=== PATIENT | female | born 1945 | race Caucasian/White ===

== ENCOUNTER 2023-08-11 06:43 | Day surgery (SDC) | payer MEDICARE, OTHER, SELFPAY ==
[2023-08-11] VITALS (16 sets, daily range): BP systolic 128–152; BP diastolic 50–65; BMI 21.5
--- NOTE | 2023-08-11 07:00 | W.SUR.PREOP ---
Pre-Operative Surgical Note
-
I have examined this patient prior to the performance of the scheduled procedure.
The patient's condition is unchanged from the time of the current History and
Physical and the patient is able to undergo the scheduled procedure.
[2023-08-11] MEDS: NSS 500 IV (07:10)
[2023-08-11 07:30] LABS: Hematocrit 30.3 % (37.0-47.0); Hemoglobin 9.4 g/dL (12.0-16.0); Mean Corpuscular Hgb 29.3 pg (27.0-31.0); Mean Corpuscular Volume 94.4 fL (81.0-99.0); Red Blood Cell Count 3.21 10^6/uL (4.20-5.40); Red Cell Dist. Width 16.6 % (11.5-14.5); White Blood Cell Count 6.3 10^3/uL (4.8-10.8)
[2023-08-11 07:39] LABS: Blood Urea Nitrogen 29 mg/dl (7-17); Calcium 9.2 mg/dl (8.4-10.2); Carbon Dioxide 31 mmol/L (22-30); Chloride 99 mmol/L (98-107); Glucose 90 mg/dl (70-99); Potassium 4.5 mmol/L (3.5-5.1); Sodium 138 mmol/L (135-145); eGFR 35.89
[2023-08-11 08:07] LABS: INR 0.99; PT 12.9 Sec (11.4-14.6)
[2023-08-11 08:08] LABS: APTT 26.5 Sec (23.4-35.0)
[2023-08-11 08:24] LABS: Mean Platelet Volume 10.1 fL (7.4-10.4); Platelet Count 66 10^3/uL (130-400)
--- NOTE | 2023-08-11 09:41 | W.IMMPOSTOP ---
Surgical Immed Post Op Note
-
Primary Surgeon: Dr. Itz Blunt III, MD
Assisting Surgeon: Dr. Neville Collado MD, PhD (PGY-1)
Pre-op Diagnosis: Peripheral artery disease with non healing wound on right second toe
Post-op Diagnosis: Peripheral artery disease with non healing wound on right second toe
Procedure Performed: Diagnostic angiogram, intravascular lithotripsy of AT artery with balloon angioplasty, tPA injection of distal AT, balloon angioplasty of dorsalis pedis
Anesthesia Type: MAC
Specimen / Cultures: None
Estimated Blood Loss: Minimal
Complications: None
Operative Findings: The patient was brought to the OR and placed in the supine position. After anesthesia induction, the groins were prepped and draped in usual sterile fashion. C arm was used to identify the inferior and superior borders of the
femoral head. Ultrasound guidance was used to identify the left CONTAINER CRANE OPERATOR. Local anesthetic was injected along the subcutaneous tissue. Micropuncture needle was used to access the left CONTAINER CRANE OPERATOR. This was upsized to a 5-kyrgyz sheath over a Celergoson wire. A
piedra's hook catheter and guidewire was advanced into the distal abdominal aorta and a diagnostic arteriogram was performed showing patent aorto-iliac system and patient ilio-femoral system bilaterally. The right SFA had diffusely calcified
disease but was of good caliber. The proximal AT had sluggish flow and was of reduced caliber, while the TP trunk and PT and peroneal arteries were of good caliber and had good distal run off. We advanced a quick cross catheter into the
contralateral right SFA then a 0.014 wire beyond that. Intravascular lithotripsy was performed starting from the distal AT/dorsalis pedis proximally to the proximal AT take off. After this, we injected tPA into the distal AT/dorsalis pedis to
facilitate opening up the distal occlusive microvascular disease. We then performed a balloon angioplasty of the dorsalis pedis (starting with the second toe pedal branch) and worked proximally through the distal AT. Completion arteriogram showed
improved AT patency and run off into the dorsalis pedis. Wires were removed and the sheath was removed under manual occlusive pressure. The patient had a palpable right DP and dopplerable right PT and left DP/PT. The patient was transported to the
PACU in stable condition.
[2023-08-11] MEDS: DILAUDID 0.25 MG IV (10:56)
[2023-08-11] MEDS: NSS 1000 IV (11:24)
[2023-08-11] MEDS: TYLENOL 650 MG PO (11:33)
--- NOTE | 2023-08-11 11:46 | PTCARENOTE ---
Pt reported sudden pain inPACU just before transfer and was medicated with Dilaudid. On arrival her right groin dressing was saturated. She had oozed, clotted and had a large grape sized hematoma we compressed for 20 minutes. Dressing was changed
and site remains soft. No eechymosis visible at this time. She was turned for retroperitoneal check. No blood pooling noted. VS stable throughout. HR remained in the 50's , SBP 120's -140. Addl tylenol given for comfort. Groin care/safety reviewed
again with pt.
--- NOTE | 2023-08-11 17:24 | OR.RPT ---
Operative Report
Operative Report
Date of Operation: 08/11/2023
Pre Op Diagnosis: Critical limb threatening ischemia, right lower extremity with nonhealing toe wound
Post Op Diagnosis: Critical limb threatening ischemia, right lower extremity with nonhealing toe wound
Procedure:
1.) Intravascular lithotripsy to right anterior tibial artery calcified stenosis (2.5 mm x 80 mm E8 shockwave balloon)
2.) Balloon angioplasty of distal anterior tibial artery (2 mm angioplasty balloon)
3.) Balloon angioplasty of dorsalis pedis artery (2 mm angioplasty balloon)
4.) Diagnostic aortobiiliac arteriogram
5.) Diagnostic right lower extremity arteriogram
6.) Ultrasound-guided percutaneous access to the left common femoral artery
Surgeon: Itz Blunt III, MD
General Road Supervisor: Neville Collado MD PhD, PGY1
Anesthesia: Sedation with local
Fluoroscopy:
32.4 min
62 mGy
14.09 Gy.cm2
Complications: None
Estimated Blood Loss: Minimal
History and Indications for Procedure: 78-year-old female with critical limb threatening ischemia of her right lower extremity manifested by nonhealing necrotic toe wounds.
Procedure in Detail: Diana Crandall was correctly identified and placed supine on the operating table. After adequate induction of anesthesia the bilateral groins were prepped and draped in the usual sterile fashion. A timeout was performed with the
nursing and anesthesia staff confirming the patient's identity as well as the nature and laterality of the procedure.
The left common femoral artery was identified under ultrasound guidance. The artery was patent. The superior and inferior aspects of the femoral head were identified with radiographic guidance and marked at the skin level. The proposed puncture site
was infiltrated with local anesthesia. We saved a copy of the ultrasound image to the medical record. Under ultrasound guidance we accessed the left common femoral artery with a micropuncture needle and upsized to a 5 Fr sheath over a Bentson wire.
The wire and a ShepherBringIt hook flush catheter were advanced into the distal abdominal aorta and a diagnostic aorto-biiliac arteriogram was performed:
AORTO-ILIAC ARTERIOGRAM:
Aorta: Peripherally calcified diffusely. Small infrarenal abdominal identified aortic aneurysm.
Right common iliac artery: Patent with no significant stenosis identified
Right external iliac artery: Patent with no significant stenosis identified
Left common iliac artery: Patent with no significant stenosis identified
Left external iliac artery: Patent with no significant stenosis identified
Under roadmap guidance using a Glidewire and the FamilyLinkerBringIt hook catheter we selected the right common iliac artery and then the external iliac artery. A catheter was tracked up and over the aortic bifurcation and placed in the distal external iliac
artery. A diagnostic right lower extremity arteriogram was then performed which demonstrated the following:
RIGHT LOWER EXTREMITY:
Common femoral artery: Patent with no significant stenosis identified
Profunda femoral artery: Patent with no significant stenosis identified
Superficial femoral artery: Diffusely calcified. Patent with no significant stenosis identified
Popliteal artery: Diffusely calcified. Mild stenosis involving the above-knee popliteal artery
Anterior tibial artery: Patent proximally with sluggish flow. Occluded distally. Calcified.
Tibioperoneal trunk: Patent
Peroneal artery: Patent to the ankle
Posterior tibial artery: Patent with no significant stenosis identified
ENDOVASCULAR INTERVENTION: Systemic heparin was administered. Selected the superficial femoral artery with the Glidewire and piedra's the catheter. Exchanged out for a 5 Fr 90 cm sheath over a Storq wire. Selected the anterior tibial artery
under roadmap guidance with Quickcross catheter and glidewire. The anterior tibial artery occlusion was crossed with a 0.014 Quickcross and 0.014 TRUCK MECHANIC wire. The wire and catheter were advanced into the dorsalis pedis artery and subtraction angio
confirmed proper position in the true lumen. Due to the heavily calcified nature of the arterial disease and in an effort to modify the calcium to achieve maximum luminal gain with endovascular intervention I elected to proceed with intravascular
lithotripsy. A 2.5 mm x 80 mm E8 shockwave balloon was placed across the distal anterior tibial artery disease under roadmap guidance. Alternating rounds of lithotripsy pulse delivery at sub-nominal pressure and angioplasty at nominal pressure was
performed across the entire length of anterior tibial artery from the occluded segment distally back to its origin. In between rounds of pulse delivery and angioplasty the balloon was deflated and repositioned under roadmap guidance. All 400 pulses
were delivered.
Subsequent arteriogram demonstrated an excellent technical result within the treated segments of the anterior tibial artery. These were patent with no residual stenosis identified. However there was still sluggish flow through the anterior tibial
artery likely related to an outflow problem. There appeared to be significant occlusive disease in the dorsalis pedis artery. I then tracked the 0.014 Quickcross catheter distally into the proximal foot. 2 mg of tPA were administered through the
dorsalis pedis artery into the foot. I then replaced the wire with a hydrophilic tip 0.014 wire and advanced it into a digital branch arising from the dorsalis pedis artery. Under roadmap guidance I positioned a 2 mm angioplasty balloon into the
dorsalis pedis artery. Balloon angioplasty was performed on the entire dorsalis pedis artery and distal anterior tibial artery at the ankle using 2-minute inflations for each segment treated. The balloon was then deflated and removed over the wire.
Subsequent arteriogram demonstrated a significantly improved result. There was flow through a widely patent anterior tibial artery which continued across the ankle into the foot through a now patent dorsalis pedis artery and out through digital
branches supplying the toes. This was significantly improved compared to pretreatment.
Satisfied with this result we concluded the procedure. The sheath tip was pulled back into the left external iliac artery. Protamine was administered. The sheath was pulled and direct manual pressure was held over the puncture site. Hemostasis
was achieved. A sterile dressing was applied.
The patient tolerated the procedure well and was taken to the recovery area in stable condition. At the conclusion of the case the patient had an easily palpable dorsalis pedis pulse in the foot.
Attestation: I was present and responsible for the entire procedure.
Signed:
Itz Blunt III, MD
[facility]
[phone] (cell)
== END 2023-08-11 17:00 | disposition home or self-care (01) ==
LOC: CATH 06:43
PROVIDERS: ATTENDING PHYSICIAN Surgery Vascular Surgery; FAMILY PHYSICIAN Internal Medicine; OTHER PHYSICIAN Internal Medicine
DX: I70.235 Atherosclerosis of native arteries of right leg with ulceration of other part of foot (principal); L97.519 Non-pressure chronic ulcer of other part of right foot with unspecified severity; M32.9 Systemic lupus erythematosus, unspecified; Z79.01 Long term (current) use of anticoagulants; Z79.899 Other long term (current) drug therapy; Z79.52 Long term (current) use of systemic steroids; I50.9 Heart failure, unspecified; I11.0 Hypertensive heart disease with heart failure
CPT/HCPCS: C9772; C1725; 75625; 75716; 76937; 80048; 85027; 85610; 85730; 93005; 93926; C1769; C1887; C1894; J2997; Q9967

== ENCOUNTER → 2023-09-14 10:46 | Outpatient (REF) | payer MEDICARE, OTHER, SELFPAY | LOC: RAD 10:46 | PROVIDERS: ATTENDING PHYSICIAN Surgery Vascular Surgery | DX: I73.9 Peripheral vascular disease, unspecified (principal) | CPT/HCPCS: 93922; 93925 ==

== ENCOUNTER → 2023-12-18 09:29 | Outpatient (REF) | payer MEDICARE, OTHER, SELFPAY | LOC: RAD 09:29 | PROVIDERS: ATTENDING PHYSICIAN Registered Nurse; FAMILY PHYSICIAN Internal Medicine | DX: I73.9 Peripheral vascular disease, unspecified (principal); I71.43 Infrarenal abdominal aortic aneurysm, without rupture | CPT/HCPCS: 76770; 93922; 93925 ==

== ENCOUNTER 2024-01-05 06:49 | Day surgery (SDC) | payer MEDICARE, OTHER, SELFPAY ==
--- NOTE | 2024-01-02 16:21 | PTCARENOTE ---
Use EKG from 08/11/23 per office, which shows nonspecific Twave abnormality. This EKG was used for prior surgery 08/11/23.
[2024-01-05] VITALS (31 sets, daily range): BP systolic 94–151; BP diastolic 40–110; BMI 21.1
[2024-01-05] MEDS: NSS 500 IV (07:39)
[2024-01-05 07:49] LABS: INR 1.01; PT 13.6 Sec (11.4-14.6)
[2024-01-05 07:50] LABS: APTT 27.6 Sec (23.4-35.0)
[2024-01-05 07:53] LABS: Blood Urea Nitrogen 45 mg/dl (7-17); Calcium 9.2 mg/dl (8.4-10.2); Carbon Dioxide 32 mmol/L (22-30); Chloride 97 mmol/L (98-107); Estimated Creatinine Clearance 26 ml/min; Glucose 86 mg/dl (70-99); Potassium 4.5 mmol/L (3.5-5.1); Sodium 138 mmol/L (135-145); eGFR 35.89
[2024-01-05 08:29] LABS: Hematocrit 33.7 % (37.0-47.0); Mean Corp Hgb Conc. 32.6 g/dL (33.0-37.0); Mean Corpuscular Hgb 30.2 pg (27.0-31.0); Mean Corpuscular Volume 92.6 fL (81.0-99.0); Platelet Count 86 10^3/uL (130-400); Red Blood Cell Count 3.64 10^6/uL (4.20-5.40); White Blood Cell Count 5.4 10^3/uL (4.8-10.8)
[2024-01-05] MEDS: NSS IV (12:13)
[2024-01-05] MEDS: NSS 1000 IV (12:15)
--- NOTE | 2024-01-05 12:30 | W.IMMPOSTOP ---
Surgical Immed Post Op Note
-
Primary Surgeon: Dr. Itz Blunt III, MD
Assisting Surgeon: Neville Collado MD, PhD (PGY-2)
Pre-op Diagnosis: Right lower extremity peripheral artery disease with non healing wounds on right toes
Post-op Diagnosis: Right lower extremity peripheral arterial disease with non healing wounds on right toes
Procedure Performed: Diagnostic arteriogram, intravascular lithotripsy (Javelin), intravascular lithotripsy with balloon angioplasty (2.5mm), balloon angioplasty (2mm), catheter-based nitroglycerin injection
Anesthesia Type: MAC
Specimen / Cultures: None
Estimated Blood Loss: Minimal
Complications: None
Operative Findings: The patient was brought to the OR and placed in the supine position. The patient was prepped and draped in usual sterile fashion. Fluoroscopy was used to identify the superior and inferior border of the femoral head, this was
marked at the skin level. Ultrasound guidance was used to identify the L AOC DIRECTOR COMBAT OPERATIONS OFFICER. Local anesthetic agent was injected at the access site. The left AOC DIRECTOR COMBAT OPERATIONS OFFICER was accessed with a micropuncture kit, which was upsized to a 5Fr sheath over a Bentson wire. A
piedra's hook catheter was then advanced into the abdominal aorta over a guidewire. Diagnostic arteriogram showed a patent distal abdominal aorta and bilateral ilio femoral system. A glidewire was used to select the contralateral right AOC DIRECTOR COMBAT OPERATIONS OFFICER and the
catheter was advanced over wire. Diagnostic arteriogram showed a patent SFA and profunda but with areas of calcification noted along the SFA and popliteal artery segments. Distally, the anterior tibial artery was occluded proximally, the peroneal
was patent but diffusely diseased with limited flow distally, and the posterior tibial was the only single run off vessel to the foot, but had diffuse disease throughout with a proximal and distal area of high grade stenosis. A glidewire was
advanced into the distal posterior tibial artery and a javelin intravascular lithotripsy catheter was advanced over wire to the proximal posterior tibial artery. This area was treated as the javelin device was advance to about the mid PEST CONTROL SUPERVISOR. At this
point, we were unable to advance the catheter further. A 2.5mm balloon angioplasty and intravascular lithotripsy was performed at the proximal half of the PEST CONTROL SUPERVISOR. Then a 2mm balloon angioplasty was performed for the distal half of the PEST CONTROL SUPERVISOR. Finally a
catheter directed nitroglycerin injection was performed, delivering the nitro to the distal posterior tibial artery. At the conclusion of the case, completion arteriogram showed improved caliber of the posterior tibial artery along its entire
length, with continued areas of stenosis distally. Wires and sheaths were removed and a selective arteriogram of the left iliofemoral system showed no evidence of pseudoaneurysm or extravasation at the access site. The patient had strong doppler PT
and DP signals in both feet. She was transported to the PACU in stable condition.
--- NOTE | 2024-01-08 09:51 | OR.RPT ---
Operative Report
Operative Report
Date of Operation: 01/05/2024
Pre Op Diagnosis: Chronic limb threatening ischemia, right lower extremity
Post Op Diagnosis: Chronic limb threatening ischemia, right lower extremity
Procedure:
1.) Intravascular lithotripsy to right posterior tibial artery using Shockwave Javelin catheter and 2.5 mm x 80 mm E8 balloon
2.) Balloon angioplasty of right posterior tibial artery and plantar branch (2 mm x 150 mm angioplasty balloon)
3.) Diagnostic aortobiiliac arteriogram
4.) Diagnostic right lower extremity arteriogram
5.) Ultrasound-guided percutaneous access to the left common femoral artery
Surgeon: Itz Blunt III, MD
Can Filling And Closing Machine Tender: Neville Collado MD PhD, PGY2
Anesthesia: Sedation with local
Fluoroscopy:
38.9 min
60 mGy
17.7 Gy.cm2
Complications: None
Estimated Blood Loss: Less than 20 cc
History and Indications for Procedure: 78-year-old female with chronic limb threatening ischemia of the right lower extremity
Procedure in Detail: Diana Crandall was correctly identified and placed supine on the operating table. After adequate induction of anesthesia the bilateral groins were prepped and draped in the usual sterile fashion. A timeout was performed with the
nursing and anesthesia staff confirming the patient's identity as well as the nature and laterality of the procedure.
The left common femoral artery was identified under ultrasound guidance. The artery was patent. The superior and inferior aspects of the femoral head were identified with radiographic guidance and marked at the skin level. The proposed puncture site
was infiltrated with local anesthesia. Under ultrasound guidance we accessed the left common femoral artery with a micropuncture needle and upsized to a 5 Fr sheath over a Bentson wire. The wire and a ShepherOnehub hook flush catheter were advanced into
the distal abdominal aorta and a diagnostic aorto-biiliac arteriogram was performed:
AORTO-ILIAC ARTERIOGRAM:
Aorta: Peripherally calcified. Patent. Area of ectasia identified at the level of the ELEONORA. No significant stenosis identified
Right common iliac artery: Peripherally calcified but patent with no significant stenosis identified.
Right external iliac artery: Patent with no significant stenosis identified
Left common iliac artery: Peripherally calcified. Patent with no significant stenosis identified
Left external iliac artery: Patent with no significant stenosis identified
Under roadmap guidance using a Glidewire and the Shepherds hook catheter we selected the right common iliac artery and then the external iliac artery. A catheter was tracked up and over the aortic bifurcation and placed in the distal external iliac
artery. A diagnostic right lower extremity arteriogram was then performed which demonstrated the following:
RIGHT LOWER EXTREMITY:
Common femoral artery: Patent with no stenosis identified
Profunda femoral artery: High femoral bifurcation with high takeoff of the profunda femoral artery. Profunda is patent with no stenosis identified.
Superficial femoral artery: Patent with no stenosis identified
Popliteal artery: Patent with no stenosis identified
Anterior tibial artery: Patent proximally but occluded thereafter with no meaningful distal reconstitution
Tibioperoneal trunk: Patent with no stenosis identified
Peroneal artery: Patent to the ankle with no stenosis identified.
Posterior tibial artery: Patent. Proximal high-grade stenosis identified at the origin. Diffusely small artery. Significant stenosis noted in the mid to distal artery. Severe plantar vessel disease identified
*Severe small vessel disease is identified in the foot
ENDOVASCULAR INTERVENTION: Systemic heparin was administered. The superficial femoral artery was selected with the Glidewire and piedra's hook catheter. Exchanged out for a 5 Fr 70 cm sheath over a Storq wire. Selected the posterior tibial
artery under roadmap guidance with Quickcross catheter and glidewire. The diffuse PT stenosis was crossed with a Quickcross and [place] [address] 0.014 wire. Due to the heavily calcified nature of the arterial disease and in an effort to modify the calcium
to achieve maximum luminal gain with endovascular intervention I elected to proceed with intravascular lithotripsy. I attempted to advance a 2.5 mm x 80 mm E8 shockwave balloon across the posterior tibial artery stenosis but was only able to
advance the balloon to the mid calf. Therefore I remove the balloon over the wire and instead proceeded with the shockwave Javelin catheter. The javelin catheter was advanced under roadmap guidance over the 0.014 wire. Starting at the mid calf
the catheter was advanced slowly over the 0.014 wire to the ankle while delivering lithotripsy pulses across this entire segment. All 120 pulses from the Javelin catheter were delivered across the posterior tibial artery. Subsequent arteriogram
demonstrated an improved but suboptimal result and residual stenosis was identified. A 2.5 mm x 80 mm E8 shockwave balloon was then successfully advanced posterior tibial artery across the stenosis under roadmap guidance. Alternating rounds of
lithotripsy pulse delivery at sub-nominal pressure and angioplasty at nominal pressure was performed across the stenosis. In between rounds of pulse delivery and angioplasty the balloon was deflated and repositioned under roadmap guidance. All 400
pulses were delivered across the posterior tibial artery stenosis. Subsequent arteriogram demonstrated an improved result. Residual stenosis was identified in the distal posterior tibial artery and plantar branch in the foot. I therefore advanced
a 2 mm x 150 mm angioplasty balloon under roadmap guiddance across the distal posterior tibial artery stenosis and placed the distal tip within the proximal plantar branch in the foot. The balloon was inflated to nominal pressure, held in place for
a prolonged 4-minute inflation and then slowly deflated and removed over the wire. Subsequent arteriogram demonstrated a significantly improved result. The posterior tibial artery was widely patent with brisk flow. Flow into the foot was
significantly improved. Flow to the forefoot was significantly improved compared to pretreatment. Some focal reconstitution of the distal anterior tibial artery/proximal dorsalis pedis artery was now identified from distal posterior tibial artery
crossing collaterals however the DP occluded distally and did not continue to the forefoot. Once again identified was significant small vessel disease in the foot.
Satisfied with this result we concluded the procedure. The sheath tip was pulled back into the left external iliac artery. Protamine was administered. The sheath was secured in place with the plan to pull it in the recovery room.
The patient tolerated the procedure well and was taken to the recovery area in stable condition.
Attestation: I was present and responsible for the entire procedure.
Signed:
Itz Blunt III, MD
[facility]
[phone] (qsho)
== END 2024-01-05 16:20 | disposition home or self-care (01) ==
LOC: CATH 06:49
PROVIDERS: ATTENDING PHYSICIAN Surgery Vascular Surgery; FAMILY PHYSICIAN Internal Medicine; OTHER PHYSICIAN Internal Medicine; OTHER PHYSICIAN Student in an Organized Health Care Education/Training Program
DX: I70.235 Atherosclerosis of native arteries of right leg with ulceration of other part of foot (principal); L97.519 Non-pressure chronic ulcer of other part of right foot with unspecified severity; I50.9 Heart failure, unspecified; I11.0 Hypertensive heart disease with heart failure; Z87.891 Personal history of nicotine dependence; Z82.49 Family history of ischemic heart disease and other diseases of the circulatory system; Z79.01 Long term (current) use of anticoagulants; Z79.82 Long term (current) use of aspirin
CPT/HCPCS: C9772; C1894; C1725; 75625; 75716; 80048; 85027; 85610; 85730; C1769; Q9967

== ENCOUNTER → 2024-02-08 09:03 | Outpatient (REF) | payer MEDICARE, OTHER, SELFPAY | LOC: RAD 09:03 | PROVIDERS: ATTENDING PHYSICIAN Surgery Vascular Surgery | DX: I73.9 Peripheral vascular disease, unspecified (principal); I87.2 Venous insufficiency (chronic) (peripheral) | CPT/HCPCS: 93922; 93925; 93971 ==

== ENCOUNTER 2024-05-27 13:51 | Day surgery (SDC) | payer MEDICARE, OTHER, SELFPAY ==
[2024-05-21 13:59] VITALS: BMI 23.2
[2024-05-27 14:30] VITALS: BP 124/88
[2024-05-27 14:35] VITALS: BP 136/83
[2024-05-27 14:38] VITALS: BMI 24.6
[2024-05-27 14:40] VITALS: BP 131/86
[2024-05-27 15:07] LABS: Blood Urea Nitrogen 58 mg/dl (7-17); Carbon Dioxide 27 mmol/L (22-30); Chloride 107 mmol/L (98-107); Estimated Creatinine Clearance 32 ml/min; Glucose 71 mg/dl (70-99); Potassium 4.7 mmol/L (3.5-5.1); Sodium 144 mmol/L (135-145); eGFR 46.62
[2024-05-27 15:09] LABS: INR 1.01; PT 13.6 Sec (11.4-14.6)
[2024-05-27 15:10] LABS: APTT 27.1 Sec (23.4-35.0)
[2024-05-27 15:15] LABS: Hematocrit 27.6 % (37.0-47.0); Hemoglobin 8.7 g/dL (12.0-16.0); Mean Corp Hgb Conc. 31.2 g/dL (33.0-37.0); Mean Corpuscular Hgb 28.7 pg (27.0-31.0); Mean Corpuscular Volume 92.1 fL (81.0-99.0); Red Blood Cell Count 3.03 10^6/uL (4.20-5.40); Red Cell Dist. Width 17.2 % (11.5-14.5); White Blood Cell Count 8.3 10^3/uL (4.8-10.8)
--- NOTE | 2024-05-27 15:31 | W.PN.UPDATE ---
Update Note
Progress Note Update
Had lengthy discussion with patient, her sister, her NH and bedside RN's. Pt is from a NH who states they do not take patients back after 4pm on any day. Pt states she is allowed back anytime so she planned on getting discharged around midnight and
having her sister take her back. We just found out from the coordinator that if pt comes back after midnight she will incur a cost (unsure of dollar amount). Pt does not want to incur any cost for staying at the hospital. Discussed with surgeon and
offered Saturday 06/03 for reschedule. Pt is very pleased with that date/time. Sister aware and agreeable as well. Pt cancelled for today. Will leave with sister shortly.
[2024-05-27 15:37] LABS: Platelet Count 37 10^3/uL (130-400)
--- NOTE | 2024-05-27 16:01 | PTCARENOTE ---
Received patient via wheelchair around 1405 into supervisor dental laboratory recovery. Patient assisted from wheelchair to bed. Patient tearful and states, 'ever since i was in the hospital a couple weeks ago, I cant even walk!' Therapeutic communications provided.
Patient currently resides in [facility] rehab. Patient states that she is able to go back to the rehab at anytime this evening. She states 'I was just informed if I stay the night here, insurance will not cover.' Patient states she will be going
back to the facility later this evening, no matter what time she is discharged. Patient assisted into hospital gown. Vital signs obtained. Patient noted to be in afib with BBBC, heart rate 110's. eKG obtained as ordered. Patient noted to have +3
BLE pedal edema. Doppler bilateral pedal pulses. Patient states her weight this am was 139 pounds. Last stated weight on transfer sheet was 134. IV site obtained by VAT and ordered bloodwork obtained and sent to lab. DALTON Calvo notified of
weight gain, lower extremity edema, ekg results and cost of overnight hospital stay. DIVORCE LAWYER at bedside to see patient. Procedure cancelled and rescheduled.
[facility] facility called (Odette, Nursing quality assurance supervisor final) and made aware of above by this RN. Requested to give report to RN-per nursing quality assurance supervisor final she is able to obtain report. Report given to Odette, Nursing quality assurance supervisor final. Landscape Crew Leader aware of patient
status and the need to take her scheduled medications when she arrives back to the facility. IV site removed. Patient assisted in getting dressing. Patient discharged back to facility with sister via wheelchair.
== END 2024-05-27 16:20 | disposition other institution (70) ==
LOC: CATH 13:51
PROVIDERS: ATTENDING PHYSICIAN Surgery Vascular Surgery
DX: I73.9 Peripheral vascular disease, unspecified (principal); I48.91 Unspecified atrial fibrillation; Z53.29 Procedure and treatment not carried out because of patient's decision for other reasons
CPT/HCPCS: 80048; 85027; 85610; 85730; 93005

== ENCOUNTER 2024-06-11 19:44 | Inpatient (IN) | payer MEDICARE, OTHER, SELFPAY ==
[2024-06-11 19:49] VITALS: BMI 20.8
[2024-06-11 20:10] VITALS: BP 131/64
[2024-06-11 20:38] VITALS: BMI 20.8
--- NOTE | 2024-06-11 21:35 | HPS.HSE ---
Family Physician
-
Family Physician: Kamla Irby
Chief Complaint
-
vascular procedure
History of Present Illness
79-year-old female past medical history of chronic combined systolic/diastolic CHF, COPD, CKD baseline creatinine 1.6-1.9, CAD status post CABG, aortic stenosis status post TAVR, atrial fibrillation on Eliquis, SLE with chronic thrombocytopenia,
ITP, hypothyroidism, chronic anemia, hypertension, hyperlipidemia, osteomyelitis of right toe presenting as transfer from [facility] for inpatient arteriogram with Dr. Blunt.
She originally presented to [facility] on 05/28 due to worsening shortness of breath with dyspnea on exertion. She was found to be in acute CHF exacerbation. She was diuresed with IV Lasix which was switched to IV Bumex drip and ultimately diuresed
with decrease of 22 pounds to 118 pounds. Patient initially required oxygen and was successfully weaned to room air. Unfortunately diuresis was complicated by BRYON. Diuretics were held on 06/07 due to peak creatinine of 2.7. Nephrology was
consulted. Following diuretic break creatinine improved to 2. Patient was resumed on Bumex 4 mg daily on 06/10.
On 06/08 she developed new oxygen requirement and worsening cough and generalized malaise. Repeat chest x-ray showed possible right lower lobe pneumonia. She has a history of Pseudomonas on prior sputum culture. She was started on IV cefepime on
06/08 with resolution of hypoxia, improved cough and clinical improvement overall.
Podiatry was consulted on admission due to his right second necrotic toe with known osteomyelitis as per prior imaging for the past year. Patient follows with Dr. Blunt and has had several procedures previously with him. She had a planned
arteriogram 06/14 due to increase tissue viability. Thereafter patient was planned to undergo either right second toe amputation versus right TMA depending on arteriogram success. During patient's hospitalization she was found to have acute on
chronic thrombocytopenia with platelets of less than 50 secondary to acute illness. Podiatry and vascular surgery agreed for inpatient arteriogram so patient can be closely monitored.
Patient denies any shortness of breath currently but feels short of breath occasionally. She has some residual swelling in her feet. Denies any chest pain. Denies fevers or chills. Denies any pain in her right second necrotic toe. Denies any
discharge.
She denies smoking or alcohol use.
Medical History
Past Medical History
Past Medical History: Reports Other (chronic combined systolic/diastolic CHF, COPD, CKD baseline creatinine 1.6-1.9, CAD status post CABG, aortic stenosis status post TAVR, atrial fibrillation on Eliquis, SLE with chronic thrombocytopenia, ITP,
hypothyroidism, chronic anemia, hypertension, hyperlipidemia, osteomyelitis of right toe)
Past Surgical History: Reports None
Social History
Tobacco: Non-smoker
Alcohol: None
Drug: None
Family History
Family History: Not pertinent
Allergies / Home Medications
Allergies reflects when Allergies were last updated in [facility].
Home Medications with original date entered in [facility]
Allergy/Medication List:
Allergies
Allergy/AdvReac Type Severity Reaction Status Date / Time
dextromethorphan Allergy Unknown Verified 06/11/24 13:08
ibuprofen Allergy Unknown Verified 06/11/24 13:08
[From DayQuil Sinus
Pressure/Pain]
oxaprozin [From Daypro] Allergy Rash Verified 06/11/24 13:08
pseudoephedrine Allergy Unknown Verified 06/11/24 13:08
[From DayQuil Sinus
Pressure/Pain]
Home Medications
albuterol sulfate 2.5 mg/3 mL (0.083 %) solution for nebulization 2.5 mg inhalation Q6H PRN sob/wheezing 08/07/23
hydroxychloroquine 200 mg tablet 200 mg PO BID Autoimmune Disorder 08/07/23
levothyroxine 125 mcg tablet 62.5 mcg PO DAILY HYPOTHYROID 08/07/23
metoprolol tartrate 50 mg tablet 50 mg PO Q12H HTN 08/07/23
prednisone 5 mg tablet 5 mg PO DAILY INFLAMMATION 08/07/23
torsemide 20 mg tablet 20 mg PO DAILY Heart Failure 08/07/23
Betadine 1 unit topical Q48H RIGHT SECOND TOE 05/23/24
budesonide-formoterol HFA 160 mcg-4.5 mcg/actuation aerosol inhaler (Breyna) 2 puff inhalation BID wheeze 05/23/24
cyclosporine 0.05 % eye drops in a dropperette (Restasis) 1 drp ophthalmic (eye) HS DRY EYES 05/23/24
darbepoetin cee in polysorbat 25 mcg/0.42 mL in polysorbate injection syringe (Aranesp) 25 mcg SC Q21D Lupus 05/23/24
diltiazem HCl 240 mg capsule,24 hr,extended release 240 mg PO DAILY HTN 05/23/24
docosanol 10 % topical cream (Abreva) 1 applic topical Q8H PRN cold sore 05/23/24
famotidine 20 mg tablet 20 mg PO DAILY GERD 05/23/24
levalbuterol HCl 1.25 mg/3 mL solution for nebulization 1.25 mg inhalation TID COPD 05/23/24
mineral oil-isopropyl myristat lotion 1 applic topical HS 05/23/24
multivitamin 1 tab PO DAILY Supplement 05/23/24
pantoprazole 40 mg tablet,delayed release 40 mg PO DAILY GERD 05/23/24
torsemide 10 mg tablet 10 mg PO DAILY PRN EDEMA 05/23/24
albuterol sulfate 90 mcg/actuation aerosol inhaler (Ventolin HFA) 1 inh inhalation Q6HPRN PRN SOB/WHEEZE 06/11/24
apixaban 2.5 mg tablet (Eliquis) 2.5 mg PO BID CAD 06/11/24
sodium chloride 3 % for nebulization 4 ml inhalation BID COPD 06/11/24
Review of Systems
-
History Source: Patient
A 12 point ROS was completed and negative except as noted: Yes
Constitutional: Reports No Symptoms
EENT: Reports No Symptoms
Respiratory: Reports No Symptoms
Cardiac: Reports No Symptoms
Abdomen/GI: Reports No Symptoms
: Reports No Symptoms
Musculoskeletal: Reports No Symptoms
Skin: Reports No Symptoms
Neurological: Reports No Symptoms
Endocrine: Reports No Symptoms
Hematologic/Lymphatic: Reports No Symptoms
Psych: Reports No Symptoms
Physical Exam
Vital Signs
Vital Signs
Pulse Pulse Ox
67 83
06/11/24 20:45 06/11/24 20:08
Physical Exam
General: Well Developed, Well Nourished and No Apparent Distress
HEENT: NormoCephalic, Moist mucous membranes and Atraumatic
Respiratory: Clear
Cardiac: S1/S2 and Regular Rhythm; No Murmur or Rub
GI: Soft, Non Tender, Non Distended and Normal Bowel Sounds; No Organomegaly
Rectal: Deferred by Provider
Musculoskeletal: No Clubbing, No Cyanosis and No Edema
Skin: No Rash
Neuro: Nonfocal/grossly intact
Data Reviewed
-
Lab Data: Labs Reviewed by me
Old Records: Reviewed
Impression/Plan
-
IMPRESSION:
PLAN:
# Acute on chronic combined systolic/diastolic CHF
- Echocardiogram showed EF of 40 to 45%, mildly reduced systolic function, global hypokinesis, TAVR bioprosthetic valve, mild to moderate regurgitation mitral valve, mild to moderate regurgitation pulmonic valve,
- Cardiac BNP initially 4700
- Currently on Bumex 4 mg p.o. restarted on 06/10 after developing BRYON
- Weight has decreased from 140 pounds on 05/28 to 118 pounds
#Paroxysmal atrial flutter
- Started on Cardizem to 40 mg daily
- Continue metoprolol
- Eliquis on hold due to borderline thrombocytopenia
#CAD status post CABG
- Aspirin on hold due to borderline thrombocytopenia
#History of TAVR
# Essential Hypertension
- Continue metoprolol
# New necrotic right second toe
# Osteomyelitis of right second toe
- Arteriogram scheduled on 06/14 as outpatient originally with Dr. Blunt to be done inpatient
- Podiatry was not concerned about infected toe
- Plan for right second toe amputation versus right TMA afterwards with Dr. Martinez
Acquired hypothyroidism
- Continue levothyroxine
COPD
- Continue budesonide, formoterol, Mucinex, Xopenex
History of SLE
- Continue Plaquenil, prednisone,
Acute on chronic thrombocytopenia secondary to current pneumonia on ITP/SLE
- Platelets have been stable around 45, baseline platelet count around 60-80 since March 2024, prior to this baseline was 100-130
- Consider platelet transfusion if vascular surgery
Chronic anemia
-Remote history of aplastic anemia/autoimmune hemolytic anemia treated with steroids/Rituxan
-Recently seen by outpatient hematology Dr. Moore on 04/24 who started Aranesp transfusion
- Received first dose of Aranesp while inpatient on 06/07
Community-acquired pneumonia
- Repeat chest x-ray on 06/08 showed moderate bilateral scarring persistent opacity at the medial right base which could be atelectasis or pneumonia
- Started on cefepime/ 419 due to prior history of Pseudomonas pneumonia
BRYON on chronic kidney disease
- Baseline creatinine of 1.6-1.9
- Creatinine peaked 2.7 while on IV diuretics now improved to 2
- Back on Bumex 4 mg daily
- Carefully monitor as patient will receive dye for arteriogram
Full code
DVT prophylaxis�SCDs
Regular diet
[2024-06-11 23:15] VITALS: BP 137/61
[2024-06-11] MEDS: LOPRESSOR 50 MG PO (23:37)
[2024-06-11] MEDS: MAXIPIME 1000 MG IV (23:38)
[2024-06-11] MEDS: STERILE WATER FOR INJECTION 10 ML IV (23:38)
[2024-06-11] MEDS: FLUSH (NSS) 1 FLUSH IV (23:38)
--- NOTE | 2024-06-12 00:49 | PTCARENOTE ---
Received transfer from [facility] into room 2249 via EMS. Stand and pivot to bed with rw. Pt placed on monitor, NSR. HR in the 60s. VSS. b/l LE edema noted as well as blanchable sacral redness and wound on right second toe. Dressing c/d/i. Pt
oriented to room. Fall risk precautions maintained and pt informed to call RN for assitance getting OOB. Pt educated on significance of fluid restriction and heart failure packet given. pt verbalized understanding. Med list completed, Dr. Cunningham
made aware. Patient had no IV access on arrival, new peripheral line started in RAC. Call crystal within reach.
[2024-06-12 03:02] VITALS: BMI 20.7
[2024-06-12 03:07] VITALS: BP 146/67
[2024-06-12] MEDS: VENTOLIN NEBULES 2.5 MG INH ×3 (03:19→17:25)
[2024-06-12 03:35] LABS: % Basophils 0.3 % (0-2); % Immature Granulocytes 0.5 % (0-0.5); % Lymphocytes 13.1 % (20.5-51.1); % Monocytes 11.5 % (1.7-9.3); % Neutrophils 74.6 % (42.2-75.2); Absolute Lymphocytes 0.8 10^3/uL (1.2-3.4); Absolute Monocytes 0.7 10^3/uL (0.1-0.6); Absolute Neutrophils 4.5 10^3/uL (1.4-6.5); Hematocrit 28.1 % (37.0-47.0); Hemoglobin 8.6 g/dL (12.0-16.0); Mean Corp Hgb Conc. 30.6 g/dL (33.0-37.0); Mean Corpuscular Hgb 27.8 pg (27.0-31.0); Mean Corpuscular Volume 90.9 fL (81.0-99.0); Mean Platelet Volume 12.2 fL (7.4-10.4); Nucleated Red Blood Cells % 0 %; Platelet Count 49 10^3/uL (130-400); Red Blood Cell Count 3.09 10^6/uL (4.20-5.40); Red Cell Dist. Width 16.3 % (11.5-14.5)
[2024-06-12 03:59] LABS: ALT (SGPT) 54 U/L (0-35); AST (SGOT) 67 U/L (14-36); Albumin 3.3 g/dl (3.5-5.0); Alkaline Phosphatase 101 U/L (38-126); Blood Urea Nitrogen 81 mg/dl (7-17); Calcium 9.5 mg/dl (8.4-10.2); Carbon Dioxide 34 mmol/L (22-30); Chloride 97 mmol/L (98-107); Estimated Creatinine Clearance 26 ml/min; Glucose 112 mg/dl (70-99); Potassium 3.5 mmol/L (3.5-5.1); Sodium 140 mmol/L (135-145); Total Bilirubin 0.6 mg/dl (0.2-1.3); Total Protein 6.2 g/dl (6.3-8.2); eGFR 35.67
[2024-06-12] MEDS: SYNTHROID 62.5 MCG PO (05:40)
[2024-06-12 07:35] VITALS: BP 136/72
[2024-06-12] MEDS: SODIUM CHLORIDE 3% FOR INHALATION 1 VIAL INH ×2 (07:35→17:25)
[2024-06-12] MEDS: SYMBICORT 160/4.5 MCG INHALER 2 PUFF INH ×2 (07:35→17:25)
[2024-06-12] MEDS: LOPRESSOR 50 MG PO ×2 (08:38→20:43)
[2024-06-12] MEDS: PLAQUENIL 200 MG PO ×2 (08:38→20:46)
[2024-06-12] MEDS: PROTONIX 40 MG PO (08:38)
[2024-06-12] MEDS: MUCINEX 600 MG PO ×2 (08:39→20:43)
[2024-06-12] MEDS: BUMEX 4 MG PO (08:39)
[2024-06-12] MEDS: PEPCID 20 MG PO (08:39)
[2024-06-12] MEDS: THERAGRAN 1 TABLET PO (08:39)
[2024-06-12] MEDS: DELTASONE 5 MG PO (08:39)
[2024-06-12] MEDS: CARDIZEM CD 240 MG PO (08:39)
--- NOTE | 2024-06-12 09:37 | W.PN.UPDATE ---
Update Note
Progress Note Update
Patient seen at bedside this a.m. Patient offers no complaint at this time. She states she feels that she is back to her baseline. She has a scheduled outpatient arteriogram for Monday with Dr. Blunt. Patient wishes to proceed with this
procedure. I will reach out to her team for possible inpatient arteriogram Monday and to assess her readiness.
--- NOTE | 2024-06-12 09:45 | W.PN.HOSP.TC ---
Today's Communication/Plan
-
Continue with antibiotic
Continue with diuretics
Monitor labs
Await vascular surgery further input
Assessment / Plan
Assessment / Plan
79-year-old female with extensive past medical history who is presenting from [facility] as a transfer for right lower extremity arteriogram.
# New necrotic right second toe
# Osteomyelitis of right second toe
- Arteriogram scheduled on 06/14 as outpatient originally with Dr. Blunt to be done inpatient apparently
- Podiatry was not concerned about infected toe
- Plan for right second toe amputation versus right TMA afterwards with Dr. Martinez
# Acute on chronic combined systolic/diastolic CHF
- Echocardiogram showed EF of 40 to 45%, mildly reduced systolic function, global hypokinesis, TAVR bioprosthetic valve, mild to moderate regurgitation mitral valve, mild to moderate regurgitation pulmonic valve,
- Cardiac BNP initially 4700
- Currently on Bumex 4 mg p.o. restarted on 06/10 after developing BRYON
- Weight has decreased from 140 pounds on 05/28 to 118 pounds per OP records
#Paroxysmal atrial flutter
- on Cardizem 240 mg daily
- Continue metoprolol
- Eliquis on hold due to borderline thrombocytopenia and for OR
#CAD status post CABG
- ASA on hold due to borderline thrombocytopenia and for OR
#History of TAVR
# Essential Hypertension
- Continue metoprolol
Acquired hypothyroidism
- Continue levothyroxine
COPD
- Continue budesonide, formoterol, Mucinex, Xopenex
History of SLE
- Continue Plaquenil, prednisone,
Acute on chronic thrombocytopenia secondary to current pneumonia on ITP/SLE
- Platelets have been stable around 45, baseline platelet count around 60-80 since March 2024, prior to this baseline was 100-130
- Consider platelet transfusion if vascular surgery
Chronic anemia
-Remote history of aplastic anemia/autoimmune hemolytic anemia treated with steroids/Rituxan
-Recently seen by outpatient hematology Dr. Moore on 04/24 who started Aranesp transfusion
- Received first dose of Aranesp while inpatient on 06/07
Community-acquired pneumonia
- Repeat chest x-ray on 06/08 showed moderate bilateral scarring persistent opacity at the medial right base which could be atelectasis or pneumonia
- Started on cefepime/ 419 due to prior history of Pseudomonas pneumonia
- Check baseline CXR.
BRYON on chronic kidney disease
- Baseline creatinine of 1.6-1.9
- Creatinine peaked 2.7 while on IV diuretics now improved to 2
- Back on Bumex 4 mg daily. May need to consider Nephro input pre-op once OR confirmed
Transaminitis likely secondary to hepatic congestion from heart failure
-monitor for now
Full code
DVT prophylaxis�SCDs in setting of thrombocytopenia
Anticipated Discharge: > 48 hours
Subjective/Interval History
-
Date of Service: June 12, 2024
States of intermittent coughing with productive phlegm
Denies any severe chest pain or shortness of breath
Objective Data
-
Labs:
Laboratory Results
06/12/24
03:15
WBC 6.0
Hgb 8.6 L
Hct 28.1 L
Plt Count 49 L
Sodium 140
Potassium 3.5
Chloride 97 L
Carbon Dioxide 34 H
BUN 81 H
Creatinine 1.5 H
Glucose 112 H
Calcium 9.5
Total Bilirubin 0.6
AST 67 H
ALT 54 H
Alkaline Phosphatase 101
Vital Signs:
Vital Signs
Temp Pulse Resp BP Pulse Ox
97.9 F 70 16 136/72 94
06/12/24 07:36 06/12/24 08:38 06/12/24 07:36 06/12/24 08:38 04/23/25 07:36
I&O
06/11/24 06/12/24 06/13/24
06:59 06:59 06:59
Intake Total 480 / 480
Balance 480 / 480
Physical Exam
-
General: Well Developed and No Apparent Distress
HEENT: Normocephalic, Atraumatic and Moist Mucous Membranes
Respiratory: Rhonchi and Decreased Breath Sounds
Cardiac: Regular Rhythm and S1/S2; Negative Murmur, Rub or Gallop
GI: Soft, Nontender, Nondistended and Normal Bowel Sounds; Negative Organomegaly
Rectal: Deferred by Provider
Musculoskeletal: No Clubbing, No Cyanosis and No Edema
Skin: Negative Rash
Neuro: Awake, Alert, Oriented, AO x 3, No Motor Deficits and Nonfocal/Grossly Intact
Psych: Calm
Data Reviewed
-
Total Time Spent with Patient (in minutes): 55
--- NOTE | 2024-06-12 10:03 | CM ---
Reviewed chart. Met with Mrs. Crandall to review discharge plans. She states prior to admission she resides alone in a two story home with two steps to enter. She states she has a full flight of steps to get to bedroom/full bathroom. She states she
went to [facility] for short term rehab. She is not sure if she will need SNF/Rehab. She states she is considering going to stay with her daughter in [place], [place]. She states her daughter has a one level home [place] farm. We reviewed [facility]NA
Services with her. She will think about VNA services. She states prior to admission she ambulates with a single point cane. Will need to see her current functional level to see if she will have any skilled care needs. She states she has a
prescription plan and uses [facility]. Medial work-up in progress. The discharge plan is to go to her daughters home with VNA Services verses SNF/Rehab. if indicated when medically stable.
[2024-06-12] MEDS: MAXIPIME 1000 MG IV ×2 (10:39→21:48)
[2024-06-12] MEDS: STERILE WATER FOR INJECTION 10 ML IV ×2 (10:39→21:48)
[2024-06-12 12:18] VITALS: BP 130/54
--- NOTE | 2024-06-12 14:22 | WOUNDNOTE ---
[facility] RN note: Patient admitted with necrotic right second toe. Here for angiogram with Dr. Blunt.
See H&P for complete history.
PMH: A-fib, CHF, CAD, TAVR, HTN
Wound Location and type/assessment: Patient admitted with necrotic right toe. Patient has been applying Betadine daily. No drainage noted. Toes on left foot are dusky. Sacrum is blanchable with some MASD.
Appetite: Fair
Pressure redistribution devices in place: Centrella Accumax, air cushion to chair
Plan: Will recommend Betadine and dry dressing as needed for right second toe. Silicone foam applied sacrum.
Will confirm orders with hospitalist and update nurse. Updated care plan and will follow as needed.
Note to case management of equipment requested for discharge:
Recommend follow up at wound care center upon discharge.
--- NOTE | 2024-06-12 14:25 | WOUNDNOTE ---
RIGHT SECOND TOE
--- NOTE | 2024-06-12 14:28 | WOUNDNOTE ---
SACRUM/COCCYX/BUTTOCKS
[2024-06-12 15:15] VITALS: BP 130/77
--- NOTE | 2024-06-12 15:29 | PTCARENOTE ---
Pt's right, second toe w/ dressing clean and intact. Pt's right foot red, anterior and purple, posterior. Dorsalis pedis pulse obtained by doppler. Pt denies any discomfort. Will monitor.
--- NOTE | 2024-06-12 20:00 | PTCARENOTE ---
Received pt from [facility]. pt resting comfortably in bed. pt is AAOx4, denies pain. NSR on monitor. VSS. heart sounds audible, radial pulses palpable, dp pulses audible with doppler, trace ZAY on right side. crackles auscultated on right later side,
spo2 98% on RA, productive cough. +BS x4 quadrants, abdomen soft non tender. pt voiding clear yellow urine, on 1500 fluid restriction. wound care consulted on right 2nd toe wound, wound care done by [facility]. PIV maintained. call crystal with reach.
will continue to monitor.
[2024-06-12 20:42] VITALS: BP 135/54
[2024-06-12] MEDS: RESTASIS 0.05% OPHTHALMIC EMULSION 1 DROPS OPHTH (21:48)
[2024-06-12] MEDS: ProAIR HFA INHALER 1 PUFF INH (22:10)
[2024-06-12 23:23] VITALS: BP 117/61
[2024-06-13] VITALS (8 sets, daily range): BP systolic 121–138; BP diastolic 47–99; BMI 20.7
--- NOTE | 2024-06-13 | PTCARENOTE ---
Pt assessment unchanged. NSR on monitor. VSS. call crystal within reach. will continue to monitor.
--- NOTE | 2024-06-13 03:30 | PTCARENOTE ---
Pt assessment unchanged. NSR on monitor. VSS. labs drawn and sent. will continue to monitor.
[2024-06-13 05:03] LABS: Blood Urea Nitrogen 66 mg/dl (7-17); Carbon Dioxide 33 mmol/L (22-30); Chloride 99 mmol/L (98-107); Estimated Creatinine Clearance 30 ml/min; Glucose 100 mg/dl (70-99); Sodium 141 mmol/L (135-145); eGFR 42.35
[2024-06-13 05:07] LABS: % Basophils 0.5 % (0-2); % Immature Granulocytes 0.5 % (0-0.5); % Lymphocytes 12.5 % (20.5-51.1); % Neutrophils 74.5 % (42.2-75.2); Absolute Lymphocytes 0.7 10^3/uL (1.2-3.4); Absolute Monocytes 0.7 10^3/uL (0.1-0.6); Absolute Neutrophils 4.2 10^3/uL (1.4-6.5); Hemoglobin 8.2 g/dL (12.0-16.0); Mean Corp Hgb Conc. 30.4 g/dL (33.0-37.0); Mean Corpuscular Hgb 27.5 pg (27.0-31.0); Mean Corpuscular Volume 90.6 fL (81.0-99.0); Mean Platelet Volume 10.8 fL (7.4-10.4); Nucleated Red Blood Cells % 0 %; Platelet Count 47 10^3/uL (130-400); Red Blood Cell Count 2.98 10^6/uL (4.20-5.40); Red Cell Dist. Width 16.4 % (11.5-14.5); White Blood Cell Count 5.7 10^3/uL (4.8-10.8)
[2024-06-13] MEDS: SYNTHROID 62.5 MCG PO (06:51)
[2024-06-13] MEDS: SODIUM CHLORIDE 3% FOR INHALATION INH ×2 (07:03→18:38)
[2024-06-13] MEDS: VENTOLIN NEBULES 2.5 MG INH ×2 (07:06→18:38)
[2024-06-13] MEDS: SYMBICORT 160/4.5 MCG INHALER 2 PUFF INH ×2 (07:07→18:38)
[2024-06-13] MEDS: BUMEX 4 MG PO (07:52)
[2024-06-13] MEDS: THERAGRAN 1 TABLET PO (07:52)
[2024-06-13] MEDS: MUCINEX 600 MG PO ×2 (07:52→20:09)
[2024-06-13] MEDS: CARDIZEM CD 240 MG PO (07:52)
[2024-06-13] MEDS: PROTONIX 40 MG PO (07:52)
[2024-06-13] MEDS: PEPCID 20 MG PO (07:52)
[2024-06-13] MEDS: LOPRESSOR 50 MG PO ×2 (07:53→20:10)
[2024-06-13] MEDS: PLAQUENIL 200 MG PO ×2 (07:53→20:13)
[2024-06-13] MEDS: DELTASONE 5 MG PO (07:53)
[2024-06-13] MEDS: MAXIPIME 1000 MG IV ×2 (11:13→22:44)
[2024-06-13] MEDS: STERILE WATER FOR INJECTION 10 ML IV ×2 (11:14→22:44)
[2024-06-13] MEDS: KCL 40 MEQ PO (11:14)
--- NOTE | 2024-06-13 12:03 | CM ---
Reviewed chart. Met with Mrs. Crandall to review discharge plans. She states she is waiting for her procedure. Prior to admission she resides alone in a two story home with two steps to enter. She has a full flight of steps to get to bedroom/full
bathroom. She was in [facility] prior to coming in to the hospital. She is not sure if she will need SNF/Rehab. She is hoping she will be able to go to her daughter's home in [facility]. She will think about [facility]NA Services. Her
daughter's home is a one story home. Prior to admission she ambulates with a single pint cane Will need to see her current functional level to see if she will have any skilled care needs. She does have prescription plan and uses [facility]
Medical work-up in progress. The discharge plan is to go home with her daughter and VNA Services verses SNF/Rehab. if indicated when medically stable.
--- NOTE | 2024-06-13 12:38 | W.PN.HOSP.TC ---
Today's Communication/Plan
-
Replete potassium
Trend CBC
Gentle fluids overnight
Arteriogram tomorrow
Assessment / Plan
Assessment / Plan
79-year-old female with extensive past medical history who is presenting from [facility] as a transfer for right lower extremity arteriogram.
# New necrotic right second toe
# Osteomyelitis of right second toe
- Arteriogram scheduled on 06/14 as outpatient originally with Dr. Blunt to be done inpatient apparently
- Podiatry was not concerned about infected toe
- Cr at 1.3. Will hold Bumex tomorrow. Gentle IV fluids overnight.
- Plan for right second toe amputation versus right TMA afterwards with Dr. Martinez
# Acute on chronic combined systolic/diastolic CHF
- Echocardiogram showed EF of 40 to 45%, mildly reduced systolic function, global hypokinesis, TAVR bioprosthetic valve, mild to moderate regurgitation mitral valve, mild to moderate regurgitation pulmonic valve,
- Cardiac BNP initially 4700
- Currently on Bumex 4 mg p.o. restarted on 06/10 after developing BRYON
- Weight has decreased from 140 pounds on 05/28 to 118 pounds per OP records at outside hospital
#Paroxysmal atrial flutter
- on Cardizem 240 mg daily
- Continue metoprolol
- Eliquis on hold due to borderline thrombocytopenia and for OR
#CAD status post CABG
- ASA on hold due to borderline thrombocytopenia and for OR
#History of TAVR
# Essential Hypertension
- Continue metoprolol
Acquired hypothyroidism
- Continue levothyroxine
COPD
- Continue budesonide, formoterol, Mucinex, Xopenex
History of SLE
- Continue Plaquenil, prednisone,
Acute on chronic thrombocytopenia secondary to current pneumonia on ITP/SLE
- Platelets have been stable around 45, baseline platelet count around 60-80 since March 2024, prior to this baseline was 100-130
- Platelet transfusion per vascular surgery if needed prior to procedure. Platelets of 47K.
Chronic anemia
-Remote history of aplastic anemia/autoimmune hemolytic anemia treated with steroids/Rituxan
-Recently seen by outpatient hematology Dr. Moore on 04/24 who started Aranesp transfusion
- Received first dose of Aranesp while inpatient on 06/07
Community-acquired pneumonia
- Repeat chest x-ray on 06/08 showed moderate bilateral scarring persistent opacity at the medial right base which could be atelectasis or pneumonia
- Started on cefepime/ 419 due to prior history of Pseudomonas pneumonia
- Chest x-ray with patchy opacity in the right upper lung zone suggestive of subsegmental atelectasis or pneumonia. No evidence of decompensated heart failure or pleural effusion.
BRYON on chronic kidney disease
- Baseline creatinine of 1.6-1.9
- Creatinine peaked 2.7 while on IV diuretics now improved to 2
- Back on Bumex 4 mg daily.
Hypokalemia
-replete/monitor
Transaminitis likely secondary to hepatic congestion from heart failure
-monitor for now
Full code
DVT prophylaxis�SCDs in setting of thrombocytopenia
Anticipated Discharge: > 48 hours
Subjective/Interval History
-
Date of Service: June 13, 2024
Patient sitting in the lounge area
Denies any chest pain or shortness of breath
Denies any foot pain
Objective Data
-
Labs:
Laboratory Results
06/13/24
03:28
WBC 5.7
Hgb 8.2 L
Hct 27.0 L
Plt Count 47 L
Sodium 141
Potassium 3.0 L
Chloride 99
Carbon Dioxide 33 H
BUN 66 H
Creatinine 1.3 H
Glucose 100 H
Calcium 9.0
Vital Signs:
Vital Signs
Temp Pulse Resp BP Pulse Ox
97.6 F 65 20 138/59 95
06/13/24 11:35 06/13/24 08:00 06/13/24 11:35 06/13/24 07:52 06/13/24 11:35
I&O
06/12/24 06/13/24 06/14/24
06:59 06:59 06:59
Intake Total 480 / 480 720 / 720 240 / 240
Balance 480 / 480 720 / 720 240 / 240
Physical Exam
-
General: Well Developed and No Apparent Distress
HEENT: Normocephalic, Atraumatic and Moist Mucous Membranes
Respiratory: Rhonchi and Decreased Breath Sounds
Cardiac: Regular Rhythm and S1/S2; Negative Murmur, Rub or Gallop
GI: Soft, Nontender, Nondistended and Normal Bowel Sounds; Negative Organomegaly
Rectal: Deferred by Provider
Musculoskeletal: No Clubbing, No Cyanosis and No Edema
Skin: Negative Rash
Neuro: Awake, Alert, Oriented, AO x 3, No Motor Deficits and Nonfocal/Grossly Intact
Psych: Calm
Data Reviewed
-
Total Time Spent with Patient (in minutes): 55
--- NOTE | 2024-06-13 17:48 | PTCARENOTE ---
Discussed impending arteriogram w/ pt. Pt requesting CHG wipes prior to procedure. Discussed pre op meds w/ patient. Pt verbalized understanding. Will monitor.
--- NOTE | 2024-06-13 21:40 | PTCARENOTE ---
Rec'd pt at change of shift. Pt AAO*3, VSS, SR on TELE monitor. Pt denies any pain or discomfort. Pt resting with call crystal in reach, and educated on upcoming procedure preparation, verbalizing understanding. Plan of care ongoing and updated
with patient. See MAR and flowchart for full pt care and assessment.
[2024-06-13] MEDS: RESTASIS 0.05% OPHTHALMIC EMULSION 1 DROPS OPHTH (22:44)
[2024-06-14] VITALS (21 sets, daily range): BP systolic 109–148; BP diastolic 48–92; BMI 20.8
[2024-06-14] MEDS: TYLENOL 500 MG PO (01:35)
[2024-06-14] MEDS: NSS 1000 IV ×2 (01:43→16:33)
[2024-06-14] MEDS: PERIDEX 0.12% ORAL RINSE 15 ML PO (05:00)
[2024-06-14] MEDS: BACTROBAN 2% OINTMENT 1 APPLIC NASAL (05:00)
[2024-06-14] MEDS: SYNTHROID 62.5 MCG PO (05:00)
[2024-06-14 05:26] LABS: % Basophils 0.2 % (0-2); % Immature Granulocytes 0.6 % (0-0.5); % Lymphocytes 14.7 % (20.5-51.1); % Monocytes 10.6 % (1.7-9.3); % Neutrophils 73.9 % (42.2-75.2); Absolute Lymphocytes 0.9 10^3/uL (1.2-3.4); Absolute Monocytes 0.7 10^3/uL (0.1-0.6); Absolute Neutrophils 4.7 10^3/uL (1.4-6.5); Hematocrit 26.6 % (37.0-47.0); Hemoglobin 8.1 g/dL (12.0-16.0); Mean Corp Hgb Conc. 30.5 g/dL (33.0-37.0); Mean Corpuscular Hgb 27.8 pg (27.0-31.0); Mean Corpuscular Volume 91.4 fL (81.0-99.0); Mean Platelet Volume 11.6 fL (7.4-10.4); Nucleated Red Blood Cells % 0 %; Platelet Count 47 10^3/uL (130-400); Red Blood Cell Count 2.91 10^6/uL (4.20-5.40); Red Cell Dist. Width 16.5 % (11.5-14.5); White Blood Cell Count 6.4 10^3/uL (4.8-10.8)
[2024-06-14] MEDS: KCL 40 MEQ PO (05:49)
[2024-06-14 06:06] LABS: Blood Urea Nitrogen 57 mg/dl (7-17); Calcium 9.1 mg/dl (8.4-10.2); Carbon Dioxide 32 mmol/L (22-30); Chloride 103 mmol/L (98-107); Estimated Creatinine Clearance 30 ml/min; Glucose 105 mg/dl (70-99); Potassium 3.9 mmol/L (3.5-5.1); Sodium 140 mmol/L (135-145); eGFR 42.35
--- NOTE | 2024-06-14 06:23 | PTCARENOTE ---
40meq of potassium PO given per order. Morning potassium resulted at 3.9 after potassium given. YULISSA Harper notified and aware. No new orders at this time. Plan of care ongoing.
[2024-06-14] MEDS: SODIUM CHLORIDE 3% FOR INHALATION 1 VIAL INH ×2 (07:13→20:41)
[2024-06-14] MEDS: SYMBICORT 160/4.5 MCG INHALER 2 PUFF INH ×2 (07:13→20:41)
[2024-06-14] MEDS: VENTOLIN NEBULES 2.5 MG INH (07:13)
[2024-06-14] MEDS: PLAQUENIL PO (08:17)
[2024-06-14] MEDS: MUCINEX PO (08:17)
[2024-06-14] MEDS: THERAGRAN PO (08:17)
[2024-06-14] MEDS: LOPRESSOR PO (08:17)
--- NOTE | 2024-06-14 09:36 | CM ---
Reviewed chart. Mrs. Crandall is in the operating room today. Prior to admission she resides alone in a two story home with two steps to enter. She has a full flight of steps to get to bedroom/full bathroom. Prior to her admission here she was at the
[facility] for SNF/Rehab. She is not sure she will need SNF/Rehab. after this hospital stay. She is considering going to stay with her daughter in [place], [place]. Her daughter has a one story home. Prior to admission she ambulated with a
single point cane. She has a prescription plan and uses [facility]. Will need to see her cureent functional level to see if she will have any skilled care needs. Medica work-up in progress. The discharge plan is to go home withher daughter
and [facility] Services if she is agreeable to VNA Services verses SNF/Rehab. if indicated when medically stable.
[2024-06-14] MEDS: SUBLIMAZE 25 MCG IV ×2 (12:41→14:09)
--- NOTE | 2024-06-14 14:25 | OR.RPT ---
Operative Report
Operative Report
Date of Operation: 06/14/2024
Pre Op Diagnosis:
1. 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
2. Osteomyelitis right second toe
Post Op Diagnosis:
1. 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
2. Osteomyelitis right second toe
Procedure:
1.) Balloon angioplasty of right dorsalis pedis artery stenosis (2 mm x 100 mm angioplasty balloon followed by 2.5 mm x 40 mm)
2.) Balloon angioplasty of right anterior tibial artery occlusion (2.5 mm x 220 mm angioplasty balloon)
3.) Balloon angioplasty of right plantar artery stenosis (2 mm x 100 mm angioplasty balloon)
4.) Balloon angioplasty of right posterior tibial artery occlusion (2.5 mm x 220 mm angioplasty balloon)
5.) Ultrasound-guided percutaneous ANTEGRADE access to the right proximal superficial femoral artery
Surgeon: Itz Blunt III, MD
Anesthesia: Sedation with local
Fluoroscopy:
49.5 min
67 mGy
7.93 gy.cm2
Complications: None
Estimated Blood Loss: Less than 20 cc
History and Indications for Procedure: 79-year-old female with multiple medical problems. She developed gangrene of her right second toe and associated osteomyelitis. We took her to the operating room today for attempted revascularization.
Procedure in Detail: Diana Crandall was correctly identified and placed supine on the operating table. After adequate induction of anesthesia the bilateral groins were prepped and draped in the usual sterile fashion. A timeout was performed with the
nursing and anesthesia staff confirming the patient's identity as well as the nature and laterality of the procedure.
The right common femoral artery was identified under ultrasound guidance. The artery was patent. The superior and inferior aspects of the femoral head were identified with radiographic guidance and marked at the skin level. The proposed puncture
site was infiltrated with local anesthesia. Under ultrasound guidance we accessed the right superficial femoral artery at its origin with a micropuncture needle and upsized to a 5 Fr sheath over a Bentson wire. A diagnostic right lower extremity
arteriogram was then performed which demonstrated the following:
RIGHT LOWER EXTREMITY:
Superficial femoral artery: Patent with no significant stenosis identified
Popliteal artery: Patent with no significant stenosis identified
Anterior tibial artery: Patent proximally but then occludes with no distal reconstitution identified
Tibioperoneal trunk: Patent with no significant stenosis identified
Peroneal artery: Patent. No significant stenosis identified. Posterior branches at the ankle reconstitute a single plantar branch in the foot.
Posterior tibial artery: Diminutive proximally but patent. Occluded distally. A single plantar branch of the foot is reconstituted via peroneal artery collaterals at the ankle
ENDOVASCULAR INTERVENTION: Systemic heparin was administered. Exchanged out for a 5 Fr 45 cm sheath over a [employer] wire. Selected the anterior tibial artery under roadmap guidance with Quickcross catheter and glidewire. The anterior tibial artery
occlusion was crossed with a 0.014 wire which was advanced through the dorsalis pedis artery in the foot. Arteriogram confirmed proper position in the true lumen. A 2 mm x 100 mm angioplasty balloon was then positioned across the dorsalis pedis
artery and distal anterior tibial artery under roadmap guidance. The balloon was inflated to nominal pressure and held in place for 3-minute inflation. Following this the remainder of the anterior tibial artery occlusion from the ankle up to the
AT origin was ballooned with a 2.5 mm x 220 mm angioplasty balloon. Each inflation was performed at nominal pressure and held in place for 3 minutes. Subsequent arteriogram demonstrated an excellent technical result with a now patent anterior
tibial and dorsalis pedis artery. There was some area of spasm in the dorsalis pedis and distal branches which was treated with nitroglycerin injection directly into the distal anterior tibial artery. A residual area of stenosis in the dorsalis
pedis artery was then treated with a 2.5 mm x 40 mm angioplasty balloon at nominal pressure for 3 minutes. Subsequent arteriogram demonstrated a widely patent anterior tibial artery with brisk flow and no areas of residual stenosis identified.
Flow through the dorsalis pedis artery out to the forefoot and specifically the second toe was identified.
I then focused my attention on the posterior tibial artery. Under roadmap guidance the posterior tibial artery was selected with a 0.014 wire and 0.014 quick cross. The wire and quick cross catheter were advanced distally. Under magnification
view I was then able to select the loan patent plantar branch in the foot. The wire was advanced distally through this plantar branch. The posterior tibial artery was treated with a 2.5 mm x 220 mm angioplasty balloon from the ankle back to the
origin. Each inflation was held in place at nominal pressure for 3 minutes. The plantar branch stenosis was treated with a 2 mm x 100 mm angioplasty balloon at nominal pressure with a 3-minute inflation.
COMPLETION ARTERIOGRAM: Patent three-vessel runoff via the anterior tibial artery, peroneal artery and posterior tibial artery. Anterior tibial artery continued into the foot to form the dorsalis pedis artery. The posterior tibial artery continued
across the ankle into the lone patent plantar branch. Significantly improved flow was demonstrated to the forefoot and toes compared to pretreatment. No significant residual stenosis was identified.
Satisfied with this result we concluded the procedure. Protamine was administered. All wires and catheters were removed from the sheath. The sheath was secured in place with the plan to pull it in the recovery area.
The patient tolerated the procedure well and was taken to the recovery area in stable condition.
Attestation: I was present and responsible for the entire procedure.
Signed:
Itz Blunt III, MD
Vascular Surgery
[facility] (formerly [facility])[3]
--- NOTE | 2024-06-14 14:36 | W.PN.HOSP.TC ---
Today's Communication/Plan
-
Postop orders per vascular
Restart Bumex
Trend CBC creatinine
complete total 7d abx course
Assessment / Plan
Assessment / Plan
79-year-old female with extensive past medical history who is presenting from [facility] as a transfer for right lower extremity arteriogram.
# New necrotic right second toe
# Osteomyelitis of right second toe
- Cr at 1.3.
- Status post lower extremity arteriogram with angioplasty of dorsalis pedis, anterior tibial, plantar artery and posterior tibial. Postprocedure patient with good blood flow per vascular.
- Plan for right second toe amputation by Dr. Aidan Corea-Dr. Blunt discussed with podiatry.
# Acute on chronic combined systolic/diastolic CHF
- Echocardiogram showed EF of 40 to 45%, mildly reduced systolic function, global hypokinesis, TAVR bioprosthetic valve, mild to moderate regurgitation mitral valve, mild to moderate regurgitation pulmonic valve,
- Cardiac BNP initially 4700
- Currently on Bumex 4 mg p.o. restarted on 06/10 after developing BRYON
- Weight has decreased from 140 pounds on 05/28 to 118 pounds per OP records at outside hospital
#Paroxysmal atrial flutter
- on Cardizem 240 mg daily
- Continue metoprolol
- Eliquis on hold due to borderline thrombocytopenia and for OR Monday for amputation
#CAD status post CABG
-No history of cardiac stent
-per pt not on asa at home
#History of TAVR
# Essential Hypertension
- Continue metoprolol
Acquired hypothyroidism
- Continue levothyroxine
COPD
- Continue budesonide, formoterol, Mucinex, Xopenex
History of SLE
- Continue Plaquenil, prednisone,
Acute on chronic thrombocytopenia secondary to current pneumonia on ITP/SLE
- Platelets have been stable around 45, baseline platelet count around 60-80 since March 2024, prior to this baseline was 100-130
- Platelet transfusion per vascular surgery if needed prior to procedure. Platelets of 47K.
Chronic anemia
-Remote history of aplastic anemia/autoimmune hemolytic anemia treated with steroids/Rituxan
-Recently seen by outpatient hematology Dr. Moore on 04/24 who started Aranesp transfusion
- Received first dose of Aranesp while inpatient on 06/07
Community-acquired pneumonia
- Repeat chest x-ray on 06/08 showed moderate bilateral scarring persistent opacity at the medial right base which could be atelectasis or pneumonia
- Started on cefepime/ 419 due to prior history of Pseudomonas pneumonia-complete finite course of 7d.
- Chest x-ray with patchy opacity in the right upper lung zone suggestive of subsegmental atelectasis or pneumonia. No evidence of decompensated heart failure or pleural effusion.
BRYON on chronic kidney disease
- Baseline creatinine of 1.6-1.9
- Creatinine peaked 2.7 while on IV diuretics now improved to 2
- Back on Bumex 4 mg daily.
Hypokalemia
-replete/monitor
Transaminitis likely secondary to hepatic congestion from heart failure
-monitor for now
Full code
DVT prophylaxis�SCDs in setting of thrombocytopenia
Anticipated Discharge: > 48 hours
Subjective/Interval History
-
Date of Service: June 14, 2024
seen post op
denies RLE pain
states mouth is dry
Objective Data
-
Labs:
Laboratory Results
06/14/24
04:59
WBC 6.4
Hgb 8.1 L
Hct 26.6 L
Plt Count 47 L
Sodium 140
Potassium 3.9 D
Chloride 103
Carbon Dioxide 32 H
BUN 57 H
Creatinine 1.3 H
Glucose 105 H
Calcium 9.1
Vital Signs:
Vital Signs
Temp Pulse Resp BP Pulse Ox
97.1 F 72 22 129/74 98
06/14/24 13:34 06/14/24 13:45 06/14/24 13:45 06/14/24 13:45 06/14/24 14:06
I&O
06/13/24 06/14/24 06/15/24
06:59 06:59 06:59
Intake Total 720 / 720 720 / 720 0 / 0
Balance 720 / 720 720 / 720 0 / 0
Physical Exam
-
General: Well Developed and No Apparent Distress
HEENT: Normocephalic, Atraumatic and Moist Mucous Membranes
Respiratory: Rhonchi and Decreased Breath Sounds
Cardiac: Regular Rhythm and S1/S2; Negative Murmur, Rub or Gallop
GI: Soft, Nontender, Nondistended and Normal Bowel Sounds; Negative Organomegaly
Rectal: Deferred by Provider
Musculoskeletal: No Clubbing, No Cyanosis and No Edema
Skin: Ulcers (R foot 3rd gangrenous toe)
Neuro: Awake, Alert, Oriented, AO x 3, No Motor Deficits and Nonfocal/Grossly Intact
Psych: Calm
--- NOTE | 2024-06-14 14:56 | PN.CDI ---
CDI
- -
CDI:
Physician Documentation Request
Admit Date: 06/11/24 19:44
Dear Doctor Kyara,
Clinical Indicators:
Patient admitted with necrotic right second toe;transferred right lower extremity arteriogram.
06/13 PN, 'Acute on chronic combined systolic/diastolic CHF'
06/13 CXR, 'No evidence of decompensated congestive heart failure or pleural effusion.'
Please clarify the most likely acuity of CHF you are currently evaluating, treating or monitoring.
Chronic combined systolic/diastolic CHF
Acute on chronic systolic/diastolic CHF
Other, please specify
Use of terms such as suspected, likely, concern for, or probable (associated with a specific diagnosis that is being evaluated, monitored, or treated as if it exists) are acceptable and can be coded in the inpatient setting, when documented at the
time of discharge.
Thank you,
ANTIONETTE Robles RN
CDI Specialist
available via tiger text
Please use your independent medical judgment in providing your response.
--- NOTE | 2024-06-14 15:05 | PTCARENOTE ---
Pt received from PACU to room 2119 at 1435. pt alert, oriented to room, call crystal and plan of care with activity restrictions reviewed. Pt remained flat x 2 hours in PACU per report, and Bedrest maintained until 1829. pt instructed that HOB
may be elevated up to 30 only to be adjusted by RN. Right leg is to remain straight. Right groin puncture site w/dry dressing intact, no hematoma. Right post tib and pedal pulses present by doppler, Right 2nd toe necrotic. scattered ecchymosis
noted to right and left leg. Left pedal pulse normal, Left post tib present w/Doppler. pt verbalized understanding of activity restrictions. telemetry placed and reading SR in 70's. care ongoing.
[2024-06-14] MEDS: ROXICODONE 5 MG PO (16:32)
[2024-06-14] MEDS: CARDIZEM CD 240 MG PO (18:30)
[2024-06-14] MEDS: PROTONIX 40 MG PO (18:30)
[2024-06-14] MEDS: DELTASONE 5 MG PO (18:30)
[2024-06-14] MEDS: PEPCID 20 MG PO (18:30)
[2024-06-14] MEDS: MAXIPIME 1000 MG IV (18:39)
[2024-06-14] MEDS: STERILE WATER FOR INJECTION 10 ML IV (18:39)
[2024-06-14] MEDS: PLAQUENIL 200 MG PO (19:56)
[2024-06-14] MEDS: LOPRESSOR 50 MG PO (19:56)
[2024-06-14] MEDS: MUCINEX 600 MG PO (19:56)
[2024-06-14] MEDS: RESTASIS 0.05% OPHTHALMIC EMULSION 1 DROPS OPHTH (21:56)
[2024-06-15 03:13] VITALS: BP 132/66
[2024-06-15] MEDS: TYLENOL 500 MG PO (04:29)
[2024-06-15] MEDS: SYNTHROID 62.5 MCG PO (05:49)
[2024-06-15] MEDS: MAXIPIME 1000 MG IV ×2 (05:50→18:01)
[2024-06-15] MEDS: STERILE WATER FOR INJECTION 10 ML IV ×2 (05:50→18:00)
[2024-06-15 06:00] VITALS: BMI 21.5
[2024-06-15 06:18] LABS: % Immature Granulocytes 0.5 % (0-0.5); % Neutrophils 84.5 % (42.2-75.2); Absolute Lymphocytes 0.4 10^3/uL (1.2-3.4); Absolute Monocytes 0.7 10^3/uL (0.1-0.6); Absolute Neutrophils 6.2 10^3/uL (1.4-6.5); Hematocrit 26.7 % (37.0-47.0); Hemoglobin 7.8 g/dL (12.0-16.0); Mean Corp Hgb Conc. 29.2 g/dL (33.0-37.0); Mean Corpuscular Hgb 27.6 pg (27.0-31.0); Mean Corpuscular Volume 94.3 fL (81.0-99.0); Mean Platelet Volume 11.9 fL (7.4-10.4); Nucleated Red Blood Cells % 0 %; Platelet Count 48 10^3/uL (130-400); Red Blood Cell Count 2.83 10^6/uL (4.20-5.40); Red Cell Dist. Width 16.5 % (11.5-14.5); White Blood Cell Count 7.4 10^3/uL (4.8-10.8)
[2024-06-15 06:46] LABS: Blood Urea Nitrogen 52 mg/dl (7-17); Calcium 8.9 mg/dl (8.4-10.2); Carbon Dioxide 29 mmol/L (22-30); Chloride 104 mmol/L (98-107); Estimated Creatinine Clearance 26 ml/min; Glucose 143 mg/dl (70-99); Potassium 6.3 mmol/L (3.5-5.1); Sodium 139 mmol/L (135-145); eGFR 35.67
[2024-06-15] MEDS: SYMBICORT 160/4.5 MCG INHALER 2 PUFF INH ×2 (07:24→18:18)
[2024-06-15] MEDS: VENTOLIN NEBULES 2.5 MG INH (07:24)
[2024-06-15] MEDS: SODIUM CHLORIDE 3% FOR INHALATION 1 VIAL INH (07:24)
[2024-06-15 08:00] VITALS: BP 117/50
[2024-06-15 08:17] LABS: Blood Urea Nitrogen 53 mg/dl (7-17); Carbon Dioxide 28 mmol/L (22-30); Chloride 104 mmol/L (98-107); Estimated Creatinine Clearance 28 ml/min; Glucose 134 mg/dl (70-99); Potassium 6.5 mmol/L (3.5-5.1); Sodium 138 mmol/L (135-145); eGFR 38.75
[2024-06-15] MEDS: LOPRESSOR 50 MG PO ×2 (08:41→20:48)
[2024-06-15] MEDS: CARDIZEM CD 240 MG PO (08:42)
[2024-06-15] MEDS: DELTASONE 5 MG PO (08:42)
[2024-06-15] MEDS: PLAQUENIL 200 MG PO ×2 (08:42→20:48)
[2024-06-15] MEDS: PEPCID 20 MG PO (08:42)
[2024-06-15] MEDS: MUCINEX 600 MG PO ×2 (08:42→20:48)
[2024-06-15] MEDS: PROTONIX 40 MG PO (08:42)
[2024-06-15] MEDS: THERAGRAN 1 TABLET PO (08:42)
[2024-06-15] MEDS: BUMEX 4 MG PO (08:49)
[2024-06-15 09:31] LABS: Glucose - Point of Care 233 mg/dl (70-99)
[2024-06-15] MEDS: CALCIUM GLUCONATE 1000 MG IV (09:38)
[2024-06-15] MEDS: DEXTROSE 50% SYRINGE 25 GRAMS IV (09:44)
[2024-06-15] MEDS: NOVOLIN R 0.05 UNITS IV (09:48)
[2024-06-15 10:51] LABS: Glucose - Point of Care 295 mg/dl (70-99)
[2024-06-15] MEDS: LOKELMA 10 GRAM PO ×3 (11:45→19:15)
--- NOTE | 2024-06-15 11:45 | W.PN.HOSP.TC ---
Today's Communication/Plan
-
tentative OR monday
repeat bmp
cont diuretics
trend labs
Assessment / Plan
Assessment / Plan
79-year-old female with extensive past medical history who is presenting from [facility] as a transfer for right lower extremity arteriogram.
# New necrotic right second toe
# Osteomyelitis of right second toe
- Status post lower extremity arteriogram with angioplasty of dorsalis pedis, anterior tibial, plantar artery and posterior tibial. Postprocedure patient with good blood flow per vascular. Post Op cr holding so far.
- Plan for right second toe amputation by Dr. Aidan Corea -tentative plan monday.
#Hyperkalemia
-s/p temporization measure w/ D50/Regular insulin/Ca gluconate.
-Already restarted on high dose diuretics
-Repeat bmp.
# Acute on chronic combined systolic/diastolic CHF
- Echocardiogram showed EF of 40 to 45%, mildly reduced systolic function, global hypokinesis, TAVR bioprosthetic valve, mild to moderate regurgitation mitral valve, mild to moderate regurgitation pulmonic valve,
- Cardiac BNP initially 4700
- Currently on Bumex 4 mg p.o. restarted on 06/10 after developing BRYON
- Weight has decreased from 140 pounds on 05/28 to 118 pounds per OP records at outside hospital
#Paroxysmal atrial flutter
- on Cardizem 240 mg daily
- Continue metoprolol
- Restart eliquis pending vascular recs. Will need to be held monday morning for OR.
#CAD status post CABG
-No history of cardiac stent
-per pt not on asa at home
#History of TAVR
# Essential Hypertension
- Continue metoprolol
Acquired hypothyroidism
- Continue levothyroxine
COPD
- Continue budesonide, formoterol, Mucinex, Xopenex
History of SLE
- Continue Plaquenil, prednisone,
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
- Platelets have been stable around 45, baseline platelet count around 60-80 since March 2024, prior to this baseline was 100-130
- Platelet transfusion per vascular surgery if needed prior to procedure.
Chronic anemia
-Remote history of aplastic anemia/autoimmune hemolytic anemia treated with steroids/Rituxan
-Recently seen by outpatient hematology Dr. Moore on 04/24 who started Aranesp transfusion
- Received first dose of Aranesp while inpatient on 06/07
Community-acquired pneumonia
- Repeat chest x-ray on 06/08 showed moderate bilateral scarring persistent opacity at the medial right base which could be atelectasis or pneumonia
- Started on cefepime/ 419 due to prior history of Pseudomonas pneumonia-complete finite course
- Chest x-ray with patchy opacity in the right upper lung zone suggestive of subsegmental atelectasis or pneumonia. No evidence of decompensated heart failure or pleural effusion.
BRYON on chronic kidney disease
- Baseline creatinine of 1.6-1.9
- Creatinine peaked 2.7 while on IV diuretics now improved to 2
- Back on Bumex 4 mg daily.
Hypokalemia
-replete/monitor
Transaminitis likely secondary to hepatic congestion from heart failure
-monitor for now
Full code
DVT prophylaxis� scds
d/w with Dr. Corea
Anticipated Discharge: > 48 hours
Subjective/Interval History
-
Date of Service: June 15, 2024
denies any leg pain
Objective Data
-
Labs:
Laboratory Results
06/15/24 06/15/24
05:51 07:31
WBC 7.4
Hgb 7.8 L
Hct 26.7 L
Plt Count 48 L
Sodium 139 138
Potassium 6.3 H* D 6.5 H*
Chloride 104 104
Carbon Dioxide 29 28
BUN 52 H 53 H
Creatinine 1.5 H 1.4 H
Glucose 143 H 134 H
Calcium 8.9 9.0
Vital Signs:
Vital Signs
Temp Pulse Resp BP Pulse Ox
97.8 F 71 18 117/50 93
06/15/24 08:00 06/15/24 08:00 06/15/24 08:00 06/15/24 08:00 06/15/24 08:00
I&O
06/14/24 06/15/24 06/16/24
06:59 06:59 06:59
Intake Total 720 / 720 805 / 805
Balance 720 / 720 805 / 805
Data Reviewed
-
Total Time Spent with Patient (in minutes): 55
[2024-06-15 11:50] VITALS: BP 93/56
[2024-06-15 12:04] LABS: Glucose - Point of Care 183 mg/dl (70-99)
--- NOTE | 2024-06-15 13:24 | CON.SURG ---
Surgical Consultation
-
Chief Complaint
-
Right 2nd toe gangrene
History of Present Illness
79-year-old female past medical history of chronic combined systolic/diastolic CHF, COPD, CKD baseline creatinine 1.6-1.9, CAD status post CABG, aortic stenosis status post TAVR, atrial fibrillation on Eliquis, SLE with chronic thrombocytopenia,
ITP, hypothyroidism, chronic anemia, hypertension, hyperlipidemia, osteomyelitis of right toe presenting as transfer from [facility] for inpatient arteriogram with Dr. Blunt.
She originally presented to [facility] on 05/28 due to worsening shortness of breath with dyspnea on exertion. She was found to be in acute CHF exacerbation. She was diuresed with IV Lasix which was switched to IV Bumex drip and ultimately diuresed
with decrease of 22 pounds to 118 pounds. Patient initially required oxygen and was successfully weaned to room air. Unfortunately diuresis was complicated by BRYON. Diuretics were held on 06/07 due to peak creatinine of 2.7. Nephrology was
consulted. Following diuretic break creatinine improved to 2. Patient was resumed on Bumex 4 mg daily on 06/10.
On 06/08 she developed new oxygen requirement and worsening cough and generalized malaise. Repeat chest x-ray showed possible right lower lobe pneumonia. She has a history of Pseudomonas on prior sputum culture. She was started on IV cefepime on
06/08 with resolution of hypoxia, improved cough and clinical improvement overall.
Podiatry was consulted on admission due to his right second necrotic toe with known osteomyelitis as per prior imaging for the past year. Patient follows with Dr. Blunt and has had several procedures previously with him. She had a planned
arteriogram 06/14 due to increase tissue viability. Thereafter patient was planned to undergo either right second toe amputation versus right TMA depending on arteriogram success. During patient's hospitalization she was found to have acute on
chronic thrombocytopenia with platelets of less than 50 secondary to acute illness. Podiatry and vascular surgery agreed for inpatient arteriogram so patient can be closely monitored.
Patient denies any shortness of breath currently but feels short of breath occasionally. She has some residual swelling in her feet. Denies any chest pain. Denies fevers or chills. Denies any pain in her right second necrotic toe. Denies any
discharge.
She denies smoking or alcohol use.
Medical History
Past Medical History
Past Medical History: Reports Other (chronic combined systolic/diastolic CHF, COPD, CKD baseline creatinine 1.6-1.9, CAD status post CABG, aortic stenosis status post TAVR, atrial fibrillation on Eliquis, SLE with chronic thrombocytopenia, ITP,
hypothyroidism, chronic anemia, hypertension, hyperlipidemia, osteomyelitis of right toe)
Past Surgical History: Reports None
Social History
Tobacco: Non-smoker
Alcohol: None
Drug: None
Family History
Family History: Not pertinent
Allergies / Home Medications
Allergies reflects when Allergies were last updated in [employer]
Home Medications with original date entered in [employer]
Allergy/Medication List:
Allergies
Allergy/AdvReac Type Severity Reaction Status Date / Time
dextromethorphan Allergy Unknown Verified 06/11/24 13:08
ibuprofen Allergy Unknown Verified 06/11/24 13:08
[From DayQuil Sinus
Pressure/Pain]
oxaprozin [From Daypro] Allergy Rash Verified 06/11/24 13:08
pseudoephedrine Allergy Unknown Verified 06/11/24 13:08
[From DayQuil Sinus
Pressure/Pain]
Home Medications
albuterol sulfate 2.5 mg/3 mL (0.083 %) solution for nebulization 2.5 mg inhalation Q6H PRN sob/wheezing 08/07/23
hydroxychloroquine 200 mg tablet 200 mg PO BID Autoimmune Disorder 08/07/23
levothyroxine 125 mcg tablet 62.5 mcg PO DAILY HYPOTHYROID 08/07/23
metoprolol tartrate 50 mg tablet 50 mg PO Q12H HTN 08/07/23
prednisone 5 mg tablet 5 mg PO DAILY INFLAMMATION 08/07/23
torsemide 20 mg tablet 20 mg PO DAILY Heart Failure 08/07/23
Betadine 1 unit topical Q48H RIGHT SECOND TOE 05/23/24
budesonide-formoterol HFA 160 mcg-4.5 mcg/actuation aerosol inhaler (Breyna) 2 puff inhalation BID wheeze 05/23/24
cyclosporine 0.05 % eye drops in a dropperette (Restasis) 1 drp ophthalmic (eye) HS DRY EYES 05/23/24
darbepoetin cee in polysorbat 25 mcg/0.42 mL in polysorbate injection syringe (Aranesp) 25 mcg SC Q21D Lupus 05/23/24
diltiazem HCl 240 mg capsule,24 hr,extended release 240 mg PO DAILY HTN 05/23/24
docosanol 10 % topical cream (Abreva) 1 applic topical Q8H PRN cold sore 05/23/24
famotidine 20 mg tablet 20 mg PO DAILY GERD 05/23/24
levalbuterol HCl 1.25 mg/3 mL solution for nebulization 1.25 mg inhalation TID COPD 05/23/24
mineral oil-isopropyl myristat lotion 1 applic topical HS 05/23/24
multivitamin 1 tab PO DAILY Supplement 05/23/24
pantoprazole 40 mg tablet,delayed release 40 mg PO DAILY GERD 05/23/24
torsemide 10 mg tablet 10 mg PO DAILY PRN EDEMA 05/23/24
albuterol sulfate 90 mcg/actuation aerosol inhaler (Ventolin HFA) 1 inh inhalation Q6HPRN PRN SOB/WHEEZE 06/11/24
apixaban 2.5 mg tablet (Eliquis) 2.5 mg PO BID CAD 06/11/24
sodium chloride 3 % for nebulization 4 ml inhalation BID COPD 06/11/24
Review of Systems
-
History Source: Patient
A 12 point ROS was completed and negative except as noted: Yes
Constitutional: Reports No Symptoms
EENT: Reports No Symptoms
Respiratory: Reports No Symptoms
Cardiac: Reports No Symptoms
Abdomen/GI: Reports No Symptoms
: Reports No Symptoms
Musculoskeletal: Reports No Symptoms
Skin: Reports No Symptoms
Neurological: Reports No Symptoms
Endocrine: Reports No Symptoms
Hematologic/Lymphatic: Reports No Symptoms
Psych: Reports No Symptoms
Physical Exam
Vital Signs
Vital Signs
Pulse Pulse Ox
67 83
06/11/24 20:45 06/11/24 20:08
Physical Exam
General: Well Developed, Well Nourished and No Apparent Distress
HEENT: NormoCephalic, Moist mucous membranes and Atraumatic
Respiratory: Clear
Cardiac: S1/S2 and Regular Rhythm; No Murmur or Rub
GI: Soft, Non Tender, Non Distended and Normal Bowel Sounds; No Organomegaly
Rectal: Deferred by Provider
Musculoskeletal: No Clubbing, No Cyanosis and No Edema
Skin: No Rash
Neuro: Nonfocal/grossly intact
RLE Physical Exam
-DP/PT pulses nonpalpable, dopplerable s/p vascular intervention
-Right 2nd toe with dry gangrenous changes without purulence, crepitus, or proximal streaking
Data Reviewed
-
Lab Data: Labs Reviewed by me
Old Records: Reviewed
Impression/Plan
-
IMPRESSION:
79 yo F s/p RLE vascular intervention with Dr. Blunt with gangrenous changes to right 2nd toe. Plan for right 2nd toe amputation on Saturday 06/17
-Patient seen and evaluated at bedside
-Due to timing of successful vascular intervention, will plan for right 2nd toe amputation on 06/17
-Please keep patient NPO after midnight on 06/16
-Defer to vascular surgery for anticoagulation/antiplatelet therapy. If eliquis is resumed, can hold morning of surgery
-Will obtain new right foot radiographs
[2024-06-15 13:59] LABS: Glucose - Point of Care 110 mg/dl (70-99)
[2024-06-15 15:09] LABS: Blood Urea Nitrogen 56 mg/dl (7-17); Carbon Dioxide 29 mmol/L (22-30); Chloride 100 mmol/L (98-107); Estimated Creatinine Clearance 24 ml/min; Glucose 80 mg/dl (70-99); Potassium 5.8 mmol/L (3.5-5.1); Sodium 139 mmol/L (135-145); eGFR 33.01
[2024-06-15 15:30] VITALS: BP 122/54
[2024-06-15 15:54] LABS: Glucose - Point of Care 179 mg/dl (70-99)
--- NOTE | 2024-06-15 16:15 | W.PN.VS ---
Today's Communication / Plan
-
See plan below for today 06/15/2024.
Assessment/Plan
-
Postoperative day #1.
� Okay for discharge from a vascular perspective. Plan for toe amputation Monday per podiatry.
� Will sign off. Please call with questions. Follow-up as scheduled.
-
Total Time Spent with Patient (in minutes): 7
Subjective Data
-
Date of Service: June 15, 2024
No complaints.
Objective Data
-
Vital Signs
Temp Pulse Resp BP Pulse Ox
97.9 F 77 16 93/56 94
06/15/24 11:50 06/15/24 11:50 06/15/24 11:50 06/15/24 11:50 06/15/24 11:50
Intake and Output
06/14/24 06/15/24 06/16/24
06:59 06:59 06:59
Intake Total 720 / 720 805 / 805 380 / 380
Balance 720 / 720 805 / 805 380 / 380
Intake:
Oral fluids 720 / 720 680 / 680 380 / 380
IV fluids (Total) 125 / 125
normosol 125 / 125
Other:
Number of approximated MODERATE 2 1 1
amounts of urine
Lab Results
06/15/24 05:51
06/15/24 14:20
Calcium 10.0 mg/dl (8.4-10.2) 06/15/24 14:20
Total Bilirubin 0.6 mg/dl (0.2-1.3) 06/12/24 03:15
AST 67 U/L (14-36) H 06/12/24 03:15
ALT 54 U/L (0-35) H 06/12/24 03:15
Alkaline Phosphatase 101 U/L (38-126) 06/12/24 03:15
Total Protein 6.2 g/dl (6.3-8.2) L 06/12/24 03:15
Albumin 3.3 g/dl (3.5-5.0) L 06/12/24 03:15
Physical Exam
-
Awake and alert.
No acute distress.
Breathing is unlabored.
Abdomen soft, nondistended, nontender.
Right groin puncture site flat.
Right foot warm 2+ palpable DP pulse.
Foot gangrene dry stable.
[2024-06-15] MEDS: ELIQUIS 2.5 MG PO (20:48)
[2024-06-15] MEDS: RESTASIS 0.05% OPHTHALMIC EMULSION 1 DROPS OPHTH (21:45)
[2024-06-15 23:56] VITALS: BP 116/52
[2024-06-16] MEDS: TUMS CHEWABLE TABLET 200 MG PO (02:40)
[2024-06-16] MEDS: SYNTHROID 62.5 MCG PO (04:12)
[2024-06-16] MEDS: TYLENOL 500 MG PO (04:14)
[2024-06-16] MEDS: STERILE WATER FOR INJECTION IV (05:49)
[2024-06-16] MEDS: MAXIPIME IV (05:49)
[2024-06-16 06:00] VITALS: BMI 21.7
[2024-06-16] MEDS: LOKELMA 10 GRAM PO (06:06)
[2024-06-16] MEDS: SYMBICORT 160/4.5 MCG INHALER 2 PUFF INH ×2 (07:21→20:06)
[2024-06-16 07:28] LABS: % Basophils 0.1 % (0-2); % Immature Granulocytes 0.5 % (0-0.5); % Monocytes 8.2 % (1.7-9.3); % Neutrophils 85.2 % (42.2-75.2); Absolute Immature Granulocytes 0.1 10^3/uL (0-0.05); Absolute Lymphocytes 0.6 10^3/uL (1.2-3.4); Absolute Monocytes 0.8 10^3/uL (0.1-0.6); Absolute Neutrophils 8.1 10^3/uL (1.4-6.5); Hemoglobin 7.7 g/dL (12.0-16.0); Mean Corp Hgb Conc. 30.8 g/dL (33.0-37.0); Mean Corpuscular Hgb 27.7 pg (27.0-31.0); Mean Corpuscular Volume 89.9 fL (81.0-99.0); Nucleated Red Blood Cells % 0 %; Platelet Count 40 10^3/uL (130-400); Red Blood Cell Count 2.78 10^6/uL (4.20-5.40); Red Cell Dist. Width 16.2 % (11.5-14.5); White Blood Cell Count 9.5 10^3/uL (4.8-10.8)
[2024-06-16 07:43] VITALS: BP 131/54
[2024-06-16 07:47] LABS: Blood Urea Nitrogen 66 mg/dl (7-17); Calcium 9.4 mg/dl (8.4-10.2); Carbon Dioxide 27 mmol/L (22-30); Chloride 101 mmol/L (98-107); Estimated Creatinine Clearance 24 ml/min; Glucose 92 mg/dl (70-99); Potassium 4.6 mmol/L (3.5-5.1); Sodium 137 mmol/L (135-145); eGFR 33.01
[2024-06-16] MEDS: BUMEX 4 MG PO (08:50)
[2024-06-16] MEDS: PEPCID 20 MG PO (09:22)
[2024-06-16] MEDS: PROTONIX 40 MG PO (09:22)
[2024-06-16] MEDS: LOPRESSOR 50 MG PO ×2 (09:22→21:04)
[2024-06-16] MEDS: MUCINEX 600 MG PO ×2 (09:23→21:04)
[2024-06-16] MEDS: SENOKOT 8.6 MG PO ×2 (09:23→21:04)
[2024-06-16] MEDS: COLACE 100 MG PO ×2 (09:23→21:04)
[2024-06-16] MEDS: ELIQUIS 2.5 MG PO ×2 (09:23→21:04)
[2024-06-16] MEDS: THERAGRAN 1 TABLET PO (09:23)
[2024-06-16] MEDS: CARDIZEM CD 240 MG PO (09:24)
[2024-06-16] MEDS: MAXIPIME 1000 MG IV ×2 (09:25→17:23)
[2024-06-16] MEDS: STERILE WATER FOR INJECTION 10 ML IV ×2 (09:25→17:24)
[2024-06-16] MEDS: PLAQUENIL 200 MG PO ×2 (09:26→21:04)
[2024-06-16] MEDS: DELTASONE 5 MG PO (09:26)
--- NOTE | 2024-06-16 09:58 | W.PN.HOSP.TC ---
Today's Communication/Plan
-
OR tomm
trend cbc
monitor cr
abx
Assessment / Plan
Assessment / Plan
79-year-old female with extensive past medical history who is presenting from [facility] as a transfer for right lower extremity arteriogram.
# New necrotic right second toe
# Osteomyelitis of right second toe
- Status post lower extremity arteriogram with angioplasty of dorsalis pedis, anterior tibial, plantar artery and posterior tibial. Postprocedure patient with good blood flow per vascular. Post Op cr holding so far.
- Plan for right second toe amputation by Dr. Aidan Corea -tentative plan monday.
#Hyperkalemia
-s/p temporization measure w/ D50/Regular insulin/Ca gluconate.
-Already restarted on high dose diuretics
-resolved.
#Chronic combined systolic/diastolic CHF
- Echocardiogram showed EF of 40 to 45%, mildly reduced systolic function, global hypokinesis, TAVR bioprosthetic valve, mild to moderate regurgitation mitral valve, mild to moderate regurgitation pulmonic valve,
- Cardiac BNP initially 4700
- Currently on Bumex 4 mg p.o. restarted on 06/10 after developing BRYON
-
#Paroxysmal atrial flutter
- on Cardizem 240 mg daily
- Continue metoprolol
- Restart eliquis. Will need to be held monday morning for OR.
#CAD status post CABG
-No history of cardiac stent
-per pt not on asa at home
#History of TAVR
# Essential Hypertension
- Continue metoprolol
Acquired hypothyroidism
- Continue levothyroxine
COPD
- Continue budesonide, formoterol, Mucinex, Xopenex
History of SLE
- Continue Plaquenil, prednisone,
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
- Platelets have been stable around 45, baseline platelet count around 60-80 since March 2024, prior to this baseline was 100-130
- Platelet transfusion per podiatry if needed prior to procedure.
- Trend platelets closely. If w/further drop may need to hold Eliquis
Chronic anemia
-Remote history of aplastic anemia/autoimmune hemolytic anemia treated with steroids/Rituxan
-Recently seen by outpatient hematology Dr. Moore on 04/24 who started Aranesp transfusion
- Received first dose of Aranesp while inpatient on 06/07
Community-acquired pneumonia
- Repeat chest x-ray on 06/08 showed moderate bilateral scarring persistent opacity at the medial right base which could be atelectasis or pneumonia
- Started on cefepime/ 419 due to prior history of Pseudomonas pneumonia-complete finite course
- Chest x-ray with patchy opacity in the right upper lung zone suggestive of subsegmental atelectasis or pneumonia. No evidence of decompensated heart failure or pleural effusion.
chronic kidney disaese stage IIIA
- Baseline creatinine of 1.6-1.9
- Creatinine peaked 2.7 while on IV diuretics at OSH. Currently at 1.6
- Back on Bumex 4 mg daily.
Hypokalemia
-replete/monitor
Transaminitis likely secondary to hepatic congestion from heart failure
-monitor for now
Full code
DVT prophylaxis� scds
d/w with multiple family members at bedside
Anticipated Discharge: > 48 hours
Subjective/Interval History
-
Date of Service: June 16, 2024
denies any R leg or foot pain
feeling alot better
Objective Data
-
Labs:
Laboratory Results
06/16/24
06:27
WBC 9.5
Hgb 7.7 L
Hct 25.0 L
Plt Count 40 L
Sodium 137
Potassium 4.6
Chloride 101
Carbon Dioxide 27
BUN 66 H
Creatinine 1.6 H
Glucose 92
Calcium 9.4
Vital Signs:
Vital Signs
Temp Pulse Resp BP Pulse Ox
97.9 F 65 16 131/54 98
06/16/24 07:43 06/16/24 07:43 06/16/24 07:43 06/16/24 07:43 06/16/24 07:43
I&O
06/15/24 06/16/24 06/17/24
06:59 06:59 06:59
Intake Total 805 / 805 1100 / 1100
Balance 805 / 805 1100 / 1100
Physical Exam
-
General: Well Developed and No Apparent Distress
HEENT: Normocephalic, Atraumatic and Moist Mucous Membranes
Respiratory: Rhonchi and Decreased Breath Sounds
Cardiac: Regular Rhythm and S1/S2; Negative Murmur, Rub or Gallop
GI: Soft, Nontender, Nondistended and Normal Bowel Sounds; Negative Organomegaly
Rectal: Deferred by Provider
Musculoskeletal: No Clubbing, No Cyanosis and No Edema
Skin: Ulcers (R foot 3rd gangrenous toe)
Neuro: Awake, Alert, Oriented, AO x 3, No Motor Deficits and Nonfocal/Grossly Intact
Psych: Calm
[2024-06-16 11:10] VITALS: BP 130/82
[2024-06-16 15:15] VITALS: BP 127/57
[2024-06-16 19:50] VITALS: BP 134/53
[2024-06-16] MEDS: ProAIR HFA INHALER 1 PUFF INH (20:06)
[2024-06-16] MEDS: RESTASIS 0.05% OPHTHALMIC EMULSION 1 DROPS OPHTH (21:04)
[2024-06-16 23:25] VITALS: BP 135/59
[2024-06-17] VITALS (10 sets, daily range): BP systolic 123–140; BP diastolic 48–67; BMI 21.7
[2024-06-17] MEDS: STERILE WATER FOR INJECTION 10 ML IV (06:07)
[2024-06-17] MEDS: MAXIPIME 1000 MG IV (06:21)
[2024-06-17] MEDS: SYNTHROID 62.5 MCG PO (06:25)
[2024-06-17] MEDS: SYMBICORT 160/4.5 MCG INHALER 2 PUFF INH ×2 (07:11→20:28)
[2024-06-17 07:18] LABS: % Basophils 0.1 % (0-2); % Immature Granulocytes 0.7 % (0-0.5); % Lymphocytes 3.7 % (20.5-51.1); % Monocytes 8.1 % (1.7-9.3); % Neutrophils 87.4 % (42.2-75.2); Absolute Immature Granulocytes 0.1 10^3/uL (0-0.05); Absolute Lymphocytes 0.3 10^3/uL (1.2-3.4); Absolute Monocytes 0.7 10^3/uL (0.1-0.6); Hematocrit 25.4 % (37.0-47.0); Hemoglobin 7.8 g/dL (12.0-16.0); Mean Corp Hgb Conc. 30.7 g/dL (33.0-37.0); Mean Corpuscular Hgb 27.6 pg (27.0-31.0); Mean Corpuscular Volume 89.8 fL (81.0-99.0); Mean Platelet Volume 10.7 fL (7.4-10.4); Nucleated Red Blood Cells % 0 %; Platelet Count 31 10^3/uL (130-400); Red Blood Cell Count 2.83 10^6/uL (4.20-5.40); Red Cell Dist. Width 16.2 % (11.5-14.5); White Blood Cell Count 9.1 10^3/uL (4.8-10.8)
[2024-06-17 07:31] LABS: Blood Urea Nitrogen 61 mg/dl (7-17); Calcium 8.8 mg/dl (8.4-10.2); Carbon Dioxide 28 mmol/L (22-30); Chloride 102 mmol/L (98-107); Estimated Creatinine Clearance 28 ml/min; Glucose 89 mg/dl (70-99); Potassium 3.3 mmol/L (3.5-5.1); Sodium 140 mmol/L (135-145); eGFR 38.75
[2024-06-17] MEDS: THERAGRAN 1 TABLET PO (08:49)
[2024-06-17] MEDS: CARDIZEM CD 240 MG PO (08:49)
[2024-06-17] MEDS: COLACE 100 MG PO ×2 (08:54→20:53)
[2024-06-17] MEDS: PLAQUENIL 200 MG PO ×2 (08:54→20:53)
[2024-06-17] MEDS: PROTONIX 40 MG PO (08:54)
[2024-06-17] MEDS: MUCINEX 600 MG PO ×2 (08:54→20:53)
[2024-06-17] MEDS: DELTASONE 5 MG PO (08:54)
[2024-06-17] MEDS: LOPRESSOR 50 MG PO ×2 (08:54→20:53)
[2024-06-17] MEDS: SENOKOT 8.6 MG PO ×2 (08:54→20:54)
[2024-06-17] MEDS: BUMEX 4 MG PO (08:55)
[2024-06-17] MEDS: PEPCID 10 MG PO (08:57)
--- NOTE | 2024-06-17 08:58 | W.PN.HOSP.TC ---
Today's Communication/Plan
-
see A/P
Assessment / Plan
Assessment / Plan
79-year-old female with extensive past medical history who presented from [facility] as a transfer for right lower extremity arteriogram.
A/P:
# New necrotic right second toe
# Osteomyelitis of right second toe
Status post lower extremity arteriogram with angioplasty of dorsalis pedis, anterior tibial, plantar artery and posterior tibial. Postprocedure patient with good blood flow per vascular.
Plan for right second toe amputation by Dr. Aidan Corea, tentative today Saturday 06/17.
# Hyperkalemia, resolved
# Now hypokalemia
replete K
# Chronic combined systolic/diastolic CHF
Echocardiogram showed EF of 40 to 45%, mildly reduced systolic function, global hypokinesis, TAVR bioprosthetic valve, mild to moderate regurgitation mitral valve, mild to moderate regurgitation pulmonic valve,
Currently on Bumex 4 mg PO daily
# Paroxysmal atrial flutter
# Essential Hypertension
on Cardizem 240 mg daily, continue metoprolol
Eliquis on hold preop for toe amputation
# CAD status post CABG
No history of cardiac stent
per pt not on asa at home
# History of TAVR
# Acquired hypothyroidism
Continue levothyroxine
# COPD
Continue budesonide, formoterol, Mucinex, Xopenex
# History of SLE
Continue Plaquenil, prednisone,
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
Platelets have been stable around 45, baseline platelet count around 60-80 since March 2024, prior to this baseline was 100-130
Platelet transfusion per podiatry if needed prior to procedure.
Trend platelets closely.
# Chronic anemia
Remote history of aplastic anemia/autoimmune hemolytic anemia treated with steroids/Rituxan
Recently seen by outpatient hematology Dr. Moore on 04/24 who started Aranesp transfusion
Received first dose of Aranesp while inpatient on 06/07
# Community-acquired pneumonia
Repeat chest x-ray on 06/08 showed moderate bilateral scarring persistent opacity at the medial right base which could be atelectasis or pneumonia
Started on cefepime 06/08 due to prior history of Pseudomonas pneumonia- completed course
# Chronic kidney disease stage IIIA
Baseline creatinine of 1.6-1.9
Creatinine peaked 2.7 while on IV diuretics at OSH. Today at 1.4
Cont Bumex 4 mg daily.
# Transaminitis likely secondary to hepatic congestion from heart failure
monitor for now
Full code
DVT prophylaxis� scds
DW RN
Anticipated Discharge: > 48 hours
Subjective/Interval History
-
Date of Service: June 17, 2024
Objective Data
-
Labs:
Laboratory Results
06/17/24
06:46
WBC 9.1
Hgb 7.8 L
Hct 25.4 L
Plt Count 31 L D
Sodium 140
Potassium 3.3 L D
Chloride 102
Carbon Dioxide 28
BUN 61 H
Creatinine 1.4 H
Glucose 89
Calcium 8.8
Vital Signs:
Vital Signs
Temp Pulse Resp BP Pulse Ox
37.1 C 78 20 140/63 97
06/17/24 07:55 06/17/24 07:55 06/17/24 07:55 06/17/24 08:49 06/17/24 07:55
I&O
06/16/24 06/17/24 06/18/24
06:59 06:59 06:59
Intake Total 1100 / 1100 1080 / 1080
Balance 1100 / 1100 1080 / 1080
Review of Systems
-
History Source: Patient
All other systems: Reviewed and negative
Physical Exam
-
General: Well Developed, Well Nourished, No Apparent Distress and Comfortable
HEENT: Normocephalic, Atraumatic and Moist Mucous Membranes
Respiratory: Clear to Auscultation, Rhonchi and Non Labored Respirations; Negative Accessory Resp Muscle Use
Cardiac: Regular Rhythm and S1/S2
GI: Soft, Nontender, Nondistended and Normal Bowel Sounds; Negative Organomegaly
Rectal: Deferred by Provider
Musculoskeletal: No Clubbing, No Cyanosis and No Edema
Skin: Other (see wound care note)
Neuro: Awake, Alert, Oriented and AO x 3
Psych: Calm and Intact Judgement/Insight
Data Reviewed
-
Labs: Labs Reviewed by me
--- NOTE | 2024-06-17 10:02 | CM ---
Reviewed the chart notes and spoke with the patient at the bedside. Plan for right second toe amputation today. Will need PT evaluation prior to discharge for planning purposes. Patient would like to go to her daughter's home at discharge with
[facility] services. Daughter livers in [place]
[address]
[place] [id number]
Plan: Discharge plans will depend on the patient's progress. Hoping for home with VN services.
[2024-06-17] MEDS: KCL 40 MEQ PO (10:24)
[2024-06-17 10:25] LABS: Magnesium 1.8 mg/dl (1.6-2.3)
[2024-06-17] MEDS: PEPCID PO (10:40)
--- NOTE | 2024-06-17 16:21 | W.PN.SURGUPD ---
Surgical Update
Surgical Update
79 yo F s/p right 2nd toe amputation
-Heel WBAT to RLE
-Continue antibiotics while inpatient as prophylaxis
-Dressings to remain C/D/I, will re-evaluate
-Follow up with myself at [facility] in 2 weeks following discharge
--- NOTE | 2024-06-17 17:53 | PTCARENOTE ---
Received patient from PACU around 1730 via bed in stable condition. Right LE wrapped with jabier wrap. <2 sec cap refill to exposed toes. +Post tibial pulse to rle. RLE elevated on pillow.
[2024-06-17] MEDS: RESTASIS 0.05% OPHTHALMIC EMULSION 1 DROPS OPHTH (21:10)
[2024-06-18] VITALS (7 sets, daily range): BP systolic 116–138; BP diastolic 54–62; PULSE 75; O2SAT 95; BMI 21.7
[2024-06-18] MEDS: SYNTHROID 62.5 MCG PO (06:08)
--- NOTE | 2024-06-18 07:38 | W.PN.SURGUPD ---
Surgical Update
Surgical Update
79 yo F s/p right 2nd toe amputation 06/17/2024
-Patient seen and evaluated at [facility]. Dressings to remain C/D/I
-Heel WBAT to RLE
-If patient is still admitted on 06/20/2024 update, will change dressings
-Upon discharge, will need home physical therapy and home nursing for dressings 1-2 times per week as follows: Please apply betadine to surgical site, DSD, darya/kerlix wrap to RLE
-Follow up with myself at [facility] in 2 weeks following discharge
[2024-06-18] MEDS: SYMBICORT 160/4.5 MCG INHALER 2 PUFF INH ×2 (07:46→19:44)
[2024-06-18 08:10] LABS: Hematocrit 24.4 % (37.0-47.0); Hemoglobin 7.6 g/dL (12.0-16.0); Mean Corp Hgb Conc. 31.1 g/dL (33.0-37.0); Mean Platelet Volume 11.5 fL (7.4-10.4); Platelet Count 30 10^3/uL (130-400); Red Blood Cell Count 2.71 10^6/uL (4.20-5.40); Red Cell Dist. Width 16.1 % (11.5-14.5)
[2024-06-18] MEDS: BUMEX 4 MG PO (08:29)
[2024-06-18] MEDS: MUCINEX 600 MG PO ×2 (08:29→20:19)
[2024-06-18] MEDS: PEPCID 10 MG PO (08:30)
[2024-06-18] MEDS: LOPRESSOR 50 MG PO ×2 (08:31→20:19)
[2024-06-18] MEDS: THERAGRAN 1 TABLET PO (08:31)
[2024-06-18] MEDS: PROTONIX 40 MG PO (08:32)
[2024-06-18] MEDS: COLACE 100 MG PO (08:32)
[2024-06-18] MEDS: CARDIZEM CD 240 MG PO (08:32)
[2024-06-18] MEDS: DELTASONE 5 MG PO (08:32)
[2024-06-18] MEDS: PLAQUENIL 200 MG PO ×2 (08:32→20:19)
[2024-06-18] MEDS: SENOKOT 8.6 MG PO (08:33)
[2024-06-18] MEDS: TYLENOL 500 MG PO (08:35)
--- NOTE | 2024-06-18 08:37 | WOUNDNOTE ---
[facility] RN NOTE: Chart reviewed. Patient had left second toe amputation on 06/17. Per notes, Dr. Corea will change dressing if patient is still here on 06/20. Patient to follow with Dr. Corea as outpatient. Will sign off.
[2024-06-18 09:05] LABS: ALT (SGPT) 32 U/L (0-35); AST (SGOT) 53 U/L (14-36); Albumin 2.7 g/dl (3.5-5.0); Alkaline Phosphatase 100 U/L (38-126); Blood Urea Nitrogen 54 mg/dl (7-17); Calcium 8.4 mg/dl (8.4-10.2); Carbon Dioxide 28 mmol/L (22-30); Chloride 103 mmol/L (98-107); Direct Bilirubin 0.2 mg/dl (0.0-0.4); Estimated Creatinine Clearance 28 ml/min; Glucose 102 mg/dl (70-99); Magnesium 1.8 mg/dl (1.6-2.3); Potassium 3.5 mmol/L (3.5-5.1); Sodium 139 mmol/L (135-145); Total Bilirubin 0.5 mg/dl (0.2-1.3); Total Protein 5.2 g/dl (6.3-8.2); eGFR 38.75
--- NOTE | 2024-06-18 09:36 | CM ---
Reviewed the chart notes. Patient requested [facility]. Referral sent via [facility]. CM continues to be available to patient/family and is monitoring medical plan for needs at discharge.
Plan: Discharge to patient's daughter's home with [facility] services.
--- NOTE | 2024-06-18 10:33 | CON.ID ---
Consultation
-
Date/Time Consultation Requested: June 17, 2024 1742
Date/Time Consultation Performed: June 18, 2024 1030
Requesting Provider: Dr. Odette Orozco
Performing Provider: Dr. Genet Rodriguez
Reason for Consultation: Status post toe amputation, antibiotic recommendations.
Chief Complaint / Past History
Chief Complaint
Transferred from [facility] due to black toe.
History of Present Illness
79-year-old female with SLE, chronic thrombocytopenia, CHF, COPD, PAD history of endovascular interventions, TAVR, CABG, who was transferred from [facility] to [facility] on June 12 for PAD workup of necrotic right second toe.
She was initially admitted to [facility] on May 28 due to acute heart failure exacerbation requiring diuresis complicated by BRYON on CKD. She did not develop pneumonia which was treated. During hospital stay, the right second distal toe
wound suddenly turned black which progressed down the toe. Podiatry recommended amputation. She was then transferred to [facility] for endovascular intervention. On June 14, she underwent right lower extremity balloon angioplasties.
June 17, she underwent right second toe amputation.
Past History
Additional Past Medical History:
Hypertension
SLE
ITP
Remote history of aplastic anemia/autoimmune hemolytic anemia treated with steroids/Rituxan
chronic thrombocytopenia
Hypothyroidism
HLD
COPD
CKD
PAD s/p endovascular interventions
Combined systolic and diastolic heart failure
CAD status post CABG
Aortic stenosis status post TAVR
Atrial fibrillation
History of Pseudomonas in sputum
Allergy History:
dextromethorphan Allergy (Verified 06/11/24 13:08)
Unknown
ibuprofen [From DayQuil Sinus Pressure/Pain] Allergy (Verified 06/11/24 13:08)
Unknown
oxaprozin [From Daypro] Allergy (Verified 06/11/24 13:08)
Rash
pseudoephedrine [From DayQuil Sinus Pressure/Pain] Allergy (Verified 06/11/24 13:08)
Unknown
Medications Reviewed: Yes
Current Antibiotics:
Cefepime d7
Social History
Tobacco: Non-Smoker
Alcohol: None
Drug: None
Family History
Family History: Not Pertinent
Review of Systems
Review of Systems
General: Negative Fever or Chills
HEENT: Negative Stiff Neck, Sinus Problems or Headache
Cardiovascular: Negative Chest Pain or Edema
Respiratory: Negative Dyspnea or Cough
Gasteroenterology: Negative Nausea or Vomiting
Genital / Urological: Negative Dysuria or Flank Pain
Endocrine: Negative Weakness
Vital Signs
Temp Pulse Resp BP Pulse Ox
98.0 F 70 18 138/58 95
06/18/24 08:10 06/18/24 08:10 06/18/24 08:10 06/18/24 08:32 06/18/24 08:10
Physical Exam
Physical Exam
Constitutional: No Acute Distress and Comfortable
Eyes: No Conjunctival Hemorrhage and Sclera Anicteric
Cardiovascular: Regular Rate and S1/S2
Pulmonary: Clear
Gastrointestinal: Soft, Non Tender, Non Distended and Normal Bowel Sounds
Genito-Urinary: Negative Blunt or CVA Tenderness
Extremities: Negative Edema
Wound: Other (Right foot post-op dressing in place.)
Neurological: AO x 3
Lab / Diagnostic Study Results
06/18/24 07:40
06/18/24 07:40
Abs Immat Gran (auto) 0.1 10^3/uL (0-0.05) H 06/17/24 06:46
Absolute Neuts (auto) 8.0 10^3/uL (1.4-6.5) H 06/17/24 06:46
Absolute Lymphs (auto) 0.3 10^3/uL (1.2-3.4) L 06/17/24 06:46
Absolute Monos (auto) 0.7 10^3/uL (0.1-0.6) H 06/17/24 06:46
Absolute Basos (auto) 0.0 10^3/uL (0-0.2) 06/17/24 06:46
Immature Gran % 0.7 % (0-0.5) H 06/17/24 06:46
Neutrophils % 87.4 % (42.2-75.2) H 06/17/24 06:46
Lymphocytes % 3.7 % (20.5-51.1) L 06/17/24 06:46
Monocytes % 8.1 % (1.7-9.3) 06/17/24 06:46
Eosinophils % 0.0 % (0-6) 06/17/24 06:46
Basophils % 0.1 % (0-2) 06/17/24 06:46
Microbiology Results
Micro:
06/11/24 23:22 MRSA Screen - Final
Nose No Methicillin Resistant Staphylococcus aureus isolated.
06/15/24 Severe osseous destruction of the DISTAL PHALANX of the right 2nd toe consistent with SEVERE ACUTE OSTEOMYELITIS. Severe diffuse cellulitis throughout the right forefoot.
Assessment / Plan
# Acute dry gangrene of left second toe status post amputation 06/17.
# PAD status post right lower extremity endovascular interventions 06/14.
# Leukocytosis due to postop
- Has achieved surgical cure.
- Can place on cephalexin 500mg po q8h x 5-7 days for soft tissue coverage.
# Conditions SUBMARINE DIVER.
Hypertension
SLE
ITP
Remote history of aplastic anemia/autoimmune hemolytic anemia treated with steroids/Rituxan
chronic thrombocytopenia
Hypothyroidism
HLD
COPD
CKD
PAD s/p endovascular interventions
Combined systolic and diastolic heart failure
CAD status post CABG
Aortic stenosis status post TAVR
Atrial fibrillation
History of Pseudomonas in sputum
Care Review
Plan reviewed with: Physician (Dr. Orozco)
--- NOTE | 2024-06-18 11:21 | W.PN.HOSP.TC ---
Today's Communication/Plan
-
see A/P
Assessment / Plan
Assessment / Plan
79-year-old female with extensive past medical history who presented from [facility] as a transfer for right lower extremity arteriogram.
A/P:
# New necrotic right second toe/ Osteomyelitis of right second toe
Status post lower extremity arteriogram with angioplasty of dorsalis pedis, anterior tibial, plantar artery and posterior tibial. Postprocedure patient with good blood flow per vascular.
s/p right second toe amputation by Dr. Aidan Corea on Saturday 06/17.
Appreciate ID input, achieved surgical cure, can place on cephalexin 500mg po q8h x 5-7 days for soft tissue coverage.
Per credit analysis manager, heel WBAT to RLE, dressing change 1-2 times per week, apply betadine to surgical site, DSD, darya/kerlix wrap to RLE
PT OT eval
Follow up with Dr Corea at [facility] in 2 weeks following discharge
# Hyperkalemia, resolved
# Now hypokalemia
replete K PRN
# Chronic combined systolic/diastolic CHF
Echocardiogram showed EF of 40 to 45%, mildly reduced systolic function, global hypokinesis, TAVR bioprosthetic valve, mild to moderate regurgitation mitral valve, mild to moderate regurgitation pulmonic valve,
Currently on Bumex 4 mg PO daily
# Paroxysmal atrial flutter
# Essential Hypertension
on Cardizem 240 mg daily, continue metoprolol
resumed Eliquis
Monitor Hgb
# CAD status post CABG
No history of cardiac stent
per pt not on asa at home
# History of TAVR
# Acquired hypothyroidism
Continue levothyroxine
# COPD
Continue budesonide, formoterol, Mucinex, Xopenex
# History of SLE
Continue Plaquenil, prednisone,
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
Platelets have been stable around 45, baseline platelet count around 60-80 since March 2024, prior to this baseline was 100-130
Platelet transfusion per podiatry if needed prior to procedure.
Trend platelets closely.
# Chronic anemia
Remote history of aplastic anemia/autoimmune hemolytic anemia treated with steroids/Rituxan
Recently seen by outpatient hematology Dr. Moore on 04/24 who started Aranesp transfusion
Received first dose of Aranesp while inpatient on 06/07
# Community-acquired pneumonia
Repeat chest x-ray on 06/08 showed moderate bilateral scarring persistent opacity at the medial right base which could be atelectasis or pneumonia
Started on cefepime 06/08 due to prior history of Pseudomonas pneumonia- completed course
# Chronic kidney disease stage IIIA
Creatinine peaked 2.7 while on IV diuretics at OSH. Today at 1.4. Baseline creatinine of 1.6-1.9
Cont Bumex 4 mg daily.
# Transaminitis likely secondary to hepatic congestion from heart failure
LFT improved
Full code
DVT prophylaxis� resumed Eliquis
DW ID
total time 51 min
Anticipated Discharge: 24 - 48 hours
Subjective/Interval History
-
Date of Service: June 18, 2024
Objective Data
-
Labs:
Laboratory Results
06/18/24
07:40
WBC 11.0 H
Hgb 7.6 L
Hct 24.4 L
Plt Count 30 L
Sodium 139
Potassium 3.5
Chloride 103
Carbon Dioxide 28
BUN 54 H
Creatinine 1.4 H
Glucose 102 H
Calcium 8.4
Total Bilirubin 0.5
AST 53 H
ALT 32
Alkaline Phosphatase 100
Vital Signs:
Vital Signs
Temp Pulse Resp BP Pulse Ox
36.7 C 70 18 138/58 95
06/18/24 08:10 06/18/24 08:10 06/18/24 08:10 06/18/24 08:32 06/18/24 08:10
I&O
06/17/24 06/18/24 06/19/24
06:59 06:59 06:59
Intake Total 1080 / 1080 250 / 250 720 / 720
Balance 1080 / 1080 250 / 250 720 / 720
Review of Systems
-
History Source: Patient
All other systems: Reviewed and negative
Physical Exam
-
General: Well Developed, Well Nourished, No Apparent Distress, Comfortable and Conversant
HEENT: Normocephalic, Atraumatic and Moist Mucous Membranes
Respiratory: Clear to Auscultation and Non Labored Respirations; Negative Accessory Resp Muscle Use
Cardiac: Regular Rhythm and S1/S2
GI: Soft, Nontender, Nondistended and Normal Bowel Sounds; Negative Organomegaly
Rectal: Deferred by Provider
Musculoskeletal: No Clubbing, No Cyanosis and No Edema
Skin: Other (see wound care note)
Neuro: Awake, Alert, Oriented and AO x 3
Psych: Calm and Intact Judgement/Insight
Data Reviewed
-
Labs: Labs Reviewed by me
[2024-06-18] MEDS: KCL 40 MEQ PO (12:34)
[2024-06-18] MEDS: KEFLEX 500 MG PO ×2 (15:59→21:34)
[2024-06-18] MEDS: ELIQUIS 2.5 MG PO (20:18)
[2024-06-18] MEDS: SENOKOT PO (20:22)
[2024-06-18] MEDS: COLACE PO (20:22)
[2024-06-18] MEDS: RESTASIS 0.05% OPHTHALMIC EMULSION 1 DROPS OPHTH (21:34)
[2024-06-19 03:20] VITALS: BP 105/63
[2024-06-19 06:00] VITALS: BMI 21.6
[2024-06-19] MEDS: SYNTHROID 62.5 MCG PO (06:18)
[2024-06-19] MEDS: KEFLEX 500 MG PO ×3 (06:18→21:40)
[2024-06-19 07:03] VITALS: BMI 21.7
[2024-06-19 07:33] LABS: Hematocrit 25.9 % (37.0-47.0); Hemoglobin 7.8 g/dL (12.0-16.0); Mean Corp Hgb Conc. 30.1 g/dL (33.0-37.0); Mean Corpuscular Hgb 27.1 pg (27.0-31.0); Mean Corpuscular Volume 89.9 fL (81.0-99.0); Mean Platelet Volume 12.5 fL (7.4-10.4); Platelet Count 28 10^3/uL (130-400); Red Blood Cell Count 2.88 10^6/uL (4.20-5.40); Red Cell Dist. Width 16.2 % (11.5-14.5)
[2024-06-19 07:45] VITALS: BP 124/59
[2024-06-19 07:52] LABS: ALT (SGPT) 26 U/L (0-35); AST (SGOT) 43 U/L (14-36); Albumin 2.9 g/dl (3.5-5.0); Alkaline Phosphatase 105 U/L (38-126); Blood Urea Nitrogen 57 mg/dl (7-17); Calcium 8.5 mg/dl (8.4-10.2); Carbon Dioxide 26 mmol/L (22-30); Chloride 104 mmol/L (98-107); Direct Bilirubin 0.3 mg/dl (0.0-0.4); Estimated Creatinine Clearance 26 ml/min; Glucose 119 mg/dl (70-99); Magnesium 1.8 mg/dl (1.6-2.3); Potassium 3.8 mmol/L (3.5-5.1); Sodium 140 mmol/L (135-145); Total Bilirubin 0.5 mg/dl (0.2-1.3); Total Protein 5.5 g/dl (6.3-8.2); eGFR 35.67
[2024-06-19] MEDS: SYMBICORT 160/4.5 MCG INHALER 2 PUFF INH ×2 (07:59→21:22)
[2024-06-19] MEDS: BUMEX 4 MG PO (09:30)
[2024-06-19] MEDS: CARDIZEM CD 240 MG PO (09:30)
[2024-06-19] MEDS: LOPRESSOR 50 MG PO ×2 (09:30→21:40)
[2024-06-19] MEDS: MUCINEX 600 MG PO ×2 (09:30→21:40)
[2024-06-19] MEDS: PROTONIX 40 MG PO (09:30)
[2024-06-19] MEDS: PLAQUENIL 200 MG PO ×2 (09:31→21:40)
[2024-06-19] MEDS: PEPCID 10 MG PO (09:31)
[2024-06-19] MEDS: THERAGRAN 1 TABLET PO (09:31)
[2024-06-19] MEDS: COLACE PO ×2 (09:32→21:40)
[2024-06-19] MEDS: DELTASONE 5 MG PO (09:32)
[2024-06-19] MEDS: SENOKOT PO ×2 (09:32→21:40)
--- NOTE | 2024-06-19 09:50 | CON.ONC ---
Addendum entered and electronically signed by Fredo Hart MD 06/19/24 10:15:
Personal Smear review:
NML RBC, WBC, PLT appearance and morphology with decreased PLT, no clumping
Original Note:
Consultation
-
Date Consultation Requested: 06/19/24
Date Consultation Performed: 06/19/24
Requesting Provider: Pam
Performing Provider: Tanner
Reason for Consultation: Thrombocytopenia
Impression
Impression
SLE
Chronic thrombocytopenia with exacerbation
PAD status post amputation 06/17 of left second toe
Hypothyroidism
Hyperlipidemia
Plan
Plan
Patient has lupus associated thrombocytopenia. Although there is an immune component to this, it is not ITP which is idiopathic.
Patient is not bleeding and platelet count is lower than her baseline but not requiring urgent therapeutic maneuvers to increase it. Continue to monitor daily.
If necessary, one option would be a dose of IVIG. Alternatively a 4-day pulse of dexamethasone would probably help improve the platelet count but as she is chronically on prednisone, this may be more of a challenge.
Although this is a hematologic issue, it is related to the entire syndrome of SLE and typically managed by rheumatology more than hematology.
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
Peripheral smear was initially requested but reviewing her previous history and diagnoses, I suspect that this is just chronic thrombocytopenia secondary lupus exacerbated by recent surgery and infections etc.
Follow CBC.
Patient History
History of Present Illness
CC: Transferred from [facility] due to black toe.
Heme Consult for : Chronic thrombocytopenia with worsening platelet count
HPI:
79-year-old female with SLE, chronic thrombocytopenia, CHF, COPD, PAD history of endovascular interventions, TAVR, CABG, who was transferred from [facility] to [facility] on June 12 for PAD workup of necrotic right second toe.
She was initially admitted to [facility] on May 28 due to acute heart failure exacerbation requiring diuresis complicated by BRYON on CKD. During hospital stay, the right second distal toe wound suddenly turned black which progressed down
the toe. Podiatry recommended amputation. She was then transferred to [facility] for endovascular intervention. On June 14, she underwent right lower extremity balloon angioplasties. June 17, she underwent right second toe
amputation. She tells me she has known chronic thrombocytopenia and follows with her laborer livestock in [place] Dr. Montes. She is on chronic low-dose prednisone and hydroxychloroquine. Although she says her current platelet count = 28,000 is
lower than normal for her, she denies any visible bleeding
Past-Medical/Surgical History
PMH:
Hypertension
SLE
ITP
Remote history of aplastic anemia/autoimmune hemolytic anemia treated with steroids/Rituxan
chronic thrombocytopenia
Hypothyroidism
HLD
COPD
CKD
PAD s/p endovascular interventions
Combined systolic and diastolic heart failure
CAD status post CABG
Aortic stenosis status post TAVR
Atrial fibrillation
History of Pseudomonas in sputum
Medications Reviewed: Yes
Social History
Tobacco: Non-Smoker
Alcohol: None
Drug: None
Family History
Family History: Not Pertinent
Patient Medication
�Medication �Instructions �Recorded �Confirmed �Last Taken �Type
albuterol sulfate 2.5 mg/3 mL 2.5 mg inhalation Q6H PRN 08/07/23 06/11/24 01/04/24 20:00 History
(0.083 %) solution for nebulization sob/wheezing
hydroxychloroquine 200 mg tablet 200 mg PO BID Autoimmune Disorder 08/07/23 06/11/24 06/11/24 17:53 History
levothyroxine 125 mcg tablet 62.5 mcg PO DAILY HYPOTHYROID 08/07/23 06/11/24 06/11/24 05:13 History
metoprolol tartrate 50 mg tablet 50 mg PO Q12H HTN 08/07/23 06/11/24 06/11/24 08:40 History
prednisone 5 mg tablet 5 mg PO DAILY INFLAMMATION 08/07/23 06/11/24 06/11/24 08:39 History
torsemide 20 mg tablet 20 mg PO DAILY Heart Failure 08/07/23 06/11/24 01/04/24 07:00 History
Betadine 1 unit topical Q48H RIGHT SECOND 05/23/24 06/11/24 06/10/24 19:00 History
TOE
budesonide-formoterol HFA 160 2 puff inhalation BID wheeze 05/23/24 06/11/24 06/11/24 17:53 History
mcg-4.5 mcg/actuation aerosol
inhaler (Breyna)
cyclosporine 0.05 % eye drops in a 1 drp ophthalmic (eye) HS DRY EYES 05/23/24 06/11/24 Unknown History
dropperette (Restasis)
darbepoetin cee in polysorbat 25 25 mcg SC Q21D Lupus 05/23/24 06/11/24 06/07/24 History
mcg/0.42 mL in polysorbate
injection syringe (Aranesp)
diltiazem HCl 240 mg capsule,24 240 mg PO DAILY HTN 05/23/24 06/11/24 06/11/24 08:41 History
hr,extended release
docosanol 10 % topical cream 1 applic topical Q8H PRN cold sore 05/23/24 06/11/24 Unknown History
(Abreva)
famotidine 20 mg tablet 20 mg PO DAILY GERD 05/23/24 06/11/24 06/11/24 History
8:39
levalbuterol HCl 1.25 mg/3 mL 1.25 mg inhalation TID COPD 05/23/24 06/11/24 06/11/24 09:04 History
solution for nebulization
multivitamin 1 tab PO DAILY Supplement 05/23/24 06/11/24 06/11/24 08:41 History
pantoprazole 40 mg tablet,delayed 40 mg PO DAILY GERD 05/23/24 06/11/24 06/11/24 08:40 History
release
torsemide 10 mg tablet 10 mg PO DAILY PRN EDEMA 05/23/24 06/11/24 Unknown History
acetaminophen 500 mg tablet 500 mg PO Q6H PRN Mild Pain 06/11/24 06/11/24 06/07/24 10:26 History
albuterol sulfate 90 mcg/actuation 1 inh inhalation Q6HPRN PRN 06/11/24 06/11/24 Unknown History
aerosol inhaler (Ventolin HFA) SOB/WHEEZE
apixaban 2.5 mg tablet (Eliquis) 2.5 mg PO BID CAD 06/11/24 06/11/24 06/07/24 17:40 History
bumetanide 2 mg tablet 4 mg PO DAILY 06/11/24 06/11/24 06/11/24 08:38 History
guaifenesin 600 mg tablet, 600 mg PO BID 06/11/24 06/11/24 06/11/24 08:39 History
extended release 12 hr
sodium chloride 3 % for 4 ml inhalation BID COPD 06/11/24 06/11/24 Unknown History
nebulization
Active Medications
Generic Name Dose Route Start Last Admin
Trade Name Freq PRN Reason Stop Dose Admin
Acetaminophen 500 mg 06/11/24 22:29 06/18/24 08:35
Acetaminophen 500 Mg Tablet PO 07/09/24 22:28 500 mg
Q6HPRN PRN Administration
Mild Pain
Albuterol 1 puff 06/11/24 22:29 06/16/24 20:06
Albuterol Hfa [90 Mcg/Dose] Inhaler INH 1 puff
R Q6HPRN PRN Administration
SOB/WHEEZE
Protocol
Albuterol Sulfate 2.5 mg 06/11/24 22:29 06/15/24 07:24
Albuterol Nebs 2.5 Mg/3 Ml Ampul INH 2.5 mg
R Q6HPRN PRN Administration
sob/wheezing
Protocol
Apixaban 2.5 mg 06/15/24 20:00 06/18/24 20:18
Apixaban (Eliquis) 2.5 Mg Tablet PO 07/13/24 19:59 2.5 mg
BID HENRY Administration
Budesonide/Formoterol Fumarate 2 puff 06/12/24 08:00 06/19/24 07:59
Symbicort Inhaler 160/4.5 INH 07/10/24 07:59 2 puff
R BID HENRY Administration
Protocol
Bumetanide 4 mg 06/12/24 08:00 06/19/24 09:30
Bumetanide 2 Mg Tablet PO 07/10/24 07:59 4 mg
DAILY HENRY Administration
Cephalexin HCl 500 mg 06/18/24 14:00 06/19/24 06:18
Cephalexin 500 Mg Capsule PO 06/27/24 14:01 500 mg
Q8H HENRY Administration
Cyclosporine 1 drops 06/12/24 22:00 06/18/24 21:34
Cyclosporine 0.05% (Ophthalmic Emulsion) 10 Drop Droperette OPHTH 07/10/24 21:59 1 drops
HS HENRY Administration
Dextrose 12.5 grams 06/15/24 08:24
Dextrose 50% (0.5 Grams/Ml) 50 Ml Syringe IV 07/13/24 08:23
[id number] PRN
hypoglycemia (BG < 70 mg/dL)
Protocol
Diltiazem HCl 240 mg 06/12/24 08:00 06/19/24 09:30
Diltiazem 240 Mg Extended Release (24 H) Capsule PO 07/10/24 07:59 240 mg
DAILY HENRY Administration
Docusate Sodium 100 mg 06/16/24 08:00 06/19/24 09:32
Docusate Sodium 100 Mg Capsule PO 07/14/24 07:59 Not Given
BID EHNRY
Famotidine 10 mg 06/17/24 09:00 06/19/24 09:31
Famotidine 20 Mg Tablet PO 07/15/24 08:59 10 mg
DAILY HENRY Administration
Guaifenesin 600 mg 06/12/24 08:00 06/19/24 09:30
Guaifenesin 600 Mg Extended Release Tablet PO 07/10/24 07:59 600 mg
BID HENRY Administration
Hydroxychloroquine Sulfate 200 mg 06/12/24 08:00 06/19/24 09:31
Hydroxychloroquine 200 Mg Tablet PO 07/10/24 07:59 200 mg
BID HENRY Administration
Levothyroxine Sodium 62.5 mcg 06/12/24 06:00 06/19/24 06:18
Levothyroxine 125 Mcg Tablet PO 07/10/24 05:59 62.5 mcg
DAILY @ 0600 HENRY Administration
Metoprolol Tartrate 50 mg 06/11/24 23:00 06/19/24 09:30
Metoprolol 50 Mg Regular Release Tablet PO 07/09/24 22:59 50 mg
Q12 HENRY Administration
Multivitamins Therapeutic 1 tablet 06/12/24 08:00 06/19/24 09:31
Multivitamin Tablet PO 07/10/24 07:59 1 tablet
DAILY HENRY Administration
Oxycodone HCl 5 mg 06/14/24 15:53 06/14/24 16:32
Oxycodone 5 Mg Regular Release Tablet PO 06/28/24 15:52 5 mg
Q6HPRN PRN Administration
moderate pain
Pantoprazole Sodium 40 mg 06/12/24 08:00 06/19/24 09:30
Pantoprazole 40 Mg Delayed Release Tablet PO 07/10/24 07:59 40 mg
DAILY HENRY Administration
Polyethylene Glycol 17 grams 06/16/24 03:35
Polyethylene Glycol Powder 17 Grams Packet PO 07/14/24 03:34
DAILYPRN PRN
constipation
Prednisone 5 mg 06/12/24 08:00 06/19/24 09:32
Prednisone 5 Mg Tablet PO 07/10/24 07:59 5 mg
DAILY HENRY Administration
Sennosides 8.6 mg 06/16/24 08:00 06/19/24 09:32
Sennosides (Senokot) 8.6 Mg Tablet PO 07/14/24 07:59 Not Given
BID HENRY
Sodium Chloride 0 flush 06/11/24 22:00 06/11/24 23:38
Sodium Chloride 0.9% (Flush) Syringe IV 07/09/24 21:59 1 flush
PER PROTOCOL HENRY Administration
Physical Exam
-
General: Well Developed, Well Nourished, No Apparent Distress and Comfortable
HEENT: Negative Jaundice
Cardiology: S1 and S2
Pulmonary: Clear
GI: Soft and Normal Bowel Sounds
Extremities: Negative Edema
Neurology: Non Focal
Labs
Lab Results
WBC 10.0 10^3/uL (4.8-10.8) 06/19/24 06:49
RBC 2.88 10^6/uL (4.20-5.40) L 06/19/24 06:49
Hgb 7.8 g/dL (12.0-16.0) L 06/19/24 06:49
Hct 25.9 % (37.0-47.0) L 06/19/24 06:49
MCV 89.9 fL (81.0-99.0) 06/19/24 06:49
MCH 27.1 pg (27.0-31.0) 06/19/24 06:49
MCHC 30.1 g/dL (33.0-37.0) L 06/19/24 06:49
RDW 16.2 % (11.5-14.5) H 06/19/24 06:49
Plt Count 28 10^3/uL (130-400) L* 06/19/24 06:49
MPV 12.5 fL (7.4-10.4) H 06/19/24 06:49
Abs Immat Gran (auto) 0.1 10^3/uL (0-0.05) H 06/17/24 06:46
Absolute Neuts (auto) 8.0 10^3/uL (1.4-6.5) H 06/17/24 06:46
Absolute Lymphs (auto) 0.3 10^3/uL (1.2-3.4) L 06/17/24 06:46
Absolute Monos (auto) 0.7 10^3/uL (0.1-0.6) H 06/17/24 06:46
Absolute Eos (auto) 0.0 10^3/uL (0-0.7) 06/17/24 06:46
Absolute Basos (auto) 0.0 10^3/uL (0-0.2) 06/17/24 06:46
Immature Gran % 0.7 % (0-0.5) H 06/17/24 06:46
Neutrophils % 87.4 % (42.2-75.2) H 06/17/24 06:46
Lymphocytes % 3.7 % (20.5-51.1) L 06/17/24 06:46
Monocytes % 8.1 % (1.7-9.3) 06/17/24 06:46
Eosinophils % 0.0 % (0-6) 06/17/24 06:46
Basophils % 0.1 % (0-2) 06/17/24 06:46
Creatinine 1.5 mg/dL (0.6-1.0) H 06/19/24 06:49
Vital Signs
Vital Signs
Temp Pulse Resp BP Pulse Ox
97.9 F 79 14 124/59 95
06/19/24 03:20 06/19/24 09:30 06/19/24 08:03 06/19/24 09:30 06/19/24 08:03
--- NOTE | 2024-06-19 10:45 | W.PN.ID1 ---
Date of Service
Date of Service: June 19, 2024
Today's Communication
Continue cephalexin 500mg po q8h through 06/24/24
Assessment / Plan
# Acute dry gangrene of left second toe status post amputation 06/17.
# PAD status post right lower extremity endovascular interventions 06/14.
# Leukocytosis due to postop
- Has achieved surgical cure.
- Continue cephalexin 500mg po q8h through 06/24/24 for soft tissue coverage.
# Conditions W[employer].
Hypertension
SLE
Chronic thrombocytopenia
Remote history of aplastic anemia/autoimmune hemolytic anemia treated with steroids/Rituxan
Hypothyroidism
HLD
COPD
CKD
PAD s/p endovascular interventions
Combined systolic and diastolic heart failure
CAD status post CABG
Aortic stenosis status post TAVR
Atrial fibrillation
History of Pseudomonas in sputum
Chief Complaint
-: Cellulitis
Subjective / Review of Systems
Tolerating abx.
Vital Signs / Physical Exam
Vital Signs
Vital Signs
Temp Pulse Resp BP Pulse Ox
97.9 F 79 14 124/59 95
06/19/24 07:45 06/19/24 09:30 06/19/24 08:03 06/19/24 09:30 06/19/24 08:03
Physical Exam
Constitutional: No Acute Distress and Comfortable
Cardiovascular: Regular Rate and S1/S2
Pulmonary: Clear
Gastrointestinal: Soft, Non Tender, Non Distended and Normal Bowel Sounds
Extremities: Negative Edema
Neurological: AO x 3
Objective Data
Lab Data
Lab Results
06/19/24 06:49
06/19/24 06:49
Estimated Creat Clear 26 ml/min 06/19/24 06:49
Total Bilirubin 0.5 mg/dl (0.2-1.3) 06/19/24 06:49
AST 43 U/L (14-36) H 06/19/24 06:49
ALT 26 U/L (0-35) 06/19/24 06:49
Alkaline Phosphatase 105 U/L (38-126) 06/19/24 06:49
Most recent labs reviewed.
Micro Results:
06/11/24 23:22 MRSA Screen - Final
Nose No Methicillin Resistant Staphylococcus aureus isolated.
06/15/24 Severe osseous destruction of the DISTAL PHALANX of the right 2nd toe consistent with SEVERE ACUTE OSTEOMYELITIS. Severe diffuse cellulitis throughout the right forefoot.
[2024-06-19 11:50] VITALS: BP 119/57
--- NOTE | 2024-06-19 12:11 | W.PN.HOSP.TC ---
Today's Communication/Plan
-
see A/P
Assessment / Plan
Assessment / Plan
79-year-old female with extensive past medical history who presented from [facility] as a transfer for right lower extremity arteriogram.
A/P:
# New necrotic right second toe/ Osteomyelitis of right second toe
Status post lower extremity arteriogram with angioplasty of dorsalis pedis, anterior tibial, plantar artery and posterior tibial. Postprocedure patient with good blood flow per vascular.
s/p right second toe amputation by Dr. Aidan Corea on Saturday 06/17.
Appreciate ID input, achieved surgical cure, can place on cephalexin 500mg po q8h x 5-7 days for soft tissue coverage.
Per oil speculator, heel WBAT to RLE, dressing change 1-2 times per week, apply betadine to surgical site, DSD, darya/kerlix wrap to RLE
PT OT cleared for HH
Follow up with Dr Corea at [facility] in 2 weeks following discharge
# Hyperkalemia, resolved
# Now hypokalemia
replete K PRN
# Chronic combined systolic/diastolic CHF
Echocardiogram showed EF of 40 to 45%, mildly reduced systolic function, global hypokinesis, TAVR bioprosthetic valve, mild to moderate regurgitation mitral valve, mild to moderate regurgitation pulmonic valve,
Currently on Bumex 4 mg PO daily
# Paroxysmal atrial flutter
# Essential Hypertension
on Cardizem 240 mg daily, continue metoprolol
holding Eliquis with worsening thrombocytopenia
Monitor Hgb
# Acute on chronic thrombocytopenia
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
Platelets dropped from 49 on admission to 28 today; baseline platelet count around 60-80 since March 2024, prior to this baseline was 100-130
Trend platelets closely.
Holding platelet
DC Onc, does not feel this is ITP flare, hence would not start steroid for ITP
Possible Lupus flare resulting in worsening thrombocytopenia , will attempt to consult rheum
# CAD status post CABG
No history of cardiac stent
per pt not on asa at home
# History of TAVR
# Acquired hypothyroidism
Continue levothyroxine
# COPD
Continue budesonide, formoterol, Mucinex, Xopenex
# History of SLE
Continue Plaquenil, prednisone,
# Chronic anemia
Remote history of aplastic anemia/autoimmune hemolytic anemia treated with steroids/Rituxan
Recently seen by outpatient hematology Dr. Moore on 04/24 who started Aranesp transfusion
Received first dose of Aranesp while inpatient on 06/07
# Community-acquired pneumonia
Repeat chest x-ray on 06/08 showed moderate bilateral scarring persistent opacity at the medial right base which could be atelectasis or pneumonia
Started on cefepime 06/08 due to prior history of Pseudomonas pneumonia- completed course
# Chronic kidney disease stage IIIA
Creatinine peaked 2.7 while on IV diuretics at OSH. Today at 1.4. Baseline creatinine of 1.6-1.9
Cont Bumex 4 mg daily.
# Transaminitis likely secondary to hepatic congestion from heart failure
LFT improved
Full code
DVT prophylaxis� holding Eliquis with worsening thrombocytopenia
DW Onc
total time 51 min
Anticipated Discharge: > 48 hours
Subjective/Interval History
-
Date of Service: June 19, 2024
Objective Data
-
Labs:
Laboratory Results
06/19/24
06:49
WBC 10.0
Hgb 7.8 L
Hct 25.9 L
Plt Count 28 L*
Sodium 140
Potassium 3.8
Chloride 104
Carbon Dioxide 26
BUN 57 H
Creatinine 1.5 H
Glucose 119 H
Calcium 8.5
Total Bilirubin 0.5
AST 43 H
ALT 26
Alkaline Phosphatase 105
Vital Signs:
Vital Signs
Temp Pulse Resp BP Pulse Ox
36.6 C 79 16 124/59 100
06/19/24 11:50 06/19/24 11:50 06/19/24 11:50 06/19/24 09:30 06/19/24 11:50
I&O
06/18/24 06/19/24 06/20/24
06:59 06:59 06:59
Intake Total 250 / 250 2099
Balance 250 / 250 2099
Review of Systems
-
History Source: Patient
All other systems: Reviewed and negative
Physical Exam
-
General: Well Developed, Well Nourished, No Apparent Distress, Comfortable and Conversant
HEENT: Normocephalic, Atraumatic and Moist Mucous Membranes
Respiratory: Clear to Auscultation and Non Labored Respirations; Negative Accessory Resp Muscle Use
Cardiac: Regular Rhythm and S1/S2
GI: Soft, Nontender, Nondistended and Normal Bowel Sounds; Negative Organomegaly
Rectal: Deferred by Provider
Musculoskeletal: No Clubbing, No Cyanosis and No Edema
Skin: Other (see wound care note)
Neuro: Awake, Alert, Oriented and AO x 3
Psych: Calm and Intact Judgement/Insight
Data Reviewed
-
Labs: Labs Reviewed by me, Discussed with Physician and Discussed with Patient
[2024-06-19] MEDS: TYLENOL 500 MG PO ×2 (14:01→21:47)
[2024-06-19 15:55] VITALS: BP 119/62
--- NOTE | 2024-06-19 16:02 | CM ---
Reviewed the chart notes and spoke with the patient at the bedside. CM continues to be available to patient/family and is monitoring medical plan for needs at discharge.
Plan: Discharge to patient's daughter's home with [facility] services.
[facility]
[2024-06-19 16:28] VITALS: BP 113/55; PULSE 75; O2SAT 98
[2024-06-19] MEDS: RESTASIS 0.05% OPHTHALMIC EMULSION 1 DROPS OPHTH (21:41)
[2024-06-19 23:00] VITALS: BP 105/51
[2024-06-20 03:00] VITALS: BP 120/64
[2024-06-20 06:00] VITALS: BMI 22.0
[2024-06-20] MEDS: KEFLEX 500 MG PO ×3 (06:07→21:41)
[2024-06-20] MEDS: SYNTHROID 62.5 MCG PO (06:07)
[2024-06-20 07:20] LABS: Hematocrit 25.7 % (37.0-47.0); Hemoglobin 7.9 g/dL (12.0-16.0); Mean Corp Hgb Conc. 30.7 g/dL (33.0-37.0); Mean Corpuscular Hgb 27.2 pg (27.0-31.0); Mean Corpuscular Volume 88.6 fL (81.0-99.0); Platelet Count 25 10^3/uL (130-400); Red Cell Dist. Width 15.9 % (11.5-14.5); White Blood Cell Count 8.2 10^3/uL (4.8-10.8)
[2024-06-20 07:32] VITALS: BP 118/61
[2024-06-20] MEDS: SYMBICORT 160/4.5 MCG INHALER 2 PUFF INH ×2 (07:41→19:58)
[2024-06-20 07:51] LABS: ALT (SGPT) 31 U/L (0-35); AST (SGOT) 54 U/L (14-36); Albumin 2.8 g/dl (3.5-5.0); Alkaline Phosphatase 102 U/L (38-126); Blood Urea Nitrogen 61 mg/dl (7-17); Calcium 8.7 mg/dl (8.4-10.2); Carbon Dioxide 25 mmol/L (22-30); Chloride 105 mmol/L (98-107); Direct Bilirubin 0.3 mg/dl (0.0-0.4); Estimated Creatinine Clearance 24 ml/min; Glucose 106 mg/dl (70-99); Magnesium 1.8 mg/dl (1.6-2.3); Potassium 4.3 mmol/L (3.5-5.1); Sodium 137 mmol/L (135-145); Total Bilirubin 0.5 mg/dl (0.2-1.3); Total Protein 5.4 g/dl (6.3-8.2); eGFR 33.01
--- NOTE | 2024-06-20 08:13 | W.PN.ONC2 ---
Today's Communication / Plan
-
.
Impression
Impression
SLE
Chronic thrombocytopenia with exacerbation
PAD status post amputation 06/17 of left second toe
Hypothyroidism
Hyperlipidemia
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
Plan
Plan
Patient has lupus associated thrombocytopenia. Although there is an immune component
With platelet count <30,000, I will order IVIG 1g/kg
monitor for bleeding
Follow CBC.
Subjective/Objective
Subjective
no new complaints
Vital Signs:
Vital Signs
Temp Pulse Resp BP Pulse Ox
97.6 F 70 16 118/61 96
06/20/24 07:32 06/20/24 07:42 06/20/24 07:42 06/20/24 07:32 06/20/24 07:42
Lab Results:
Laboratory Data
WBC 8.2 10^3/uL (4.8-10.8) 06/20/24 06:53
Hgb 7.9 g/dL (12.0-16.0) L 06/20/24 06:53
Plt Count 25 10^3/uL (130-400) L* 06/20/24 06:53
eGFR 33.01 06/20/24 06:53
Physical Exam
HEENT: Moist Mucous Membranes; No Jaundice
Cardiology: Normal Sinus Rhythm
Pulmonary: Clear
GI: Soft
Extremities: Pulses Present and Other (RLE boot, right ankle with confluent brusing)
Neuro: Non Focal
[2024-06-20] MEDS: BUMEX 4 MG PO (08:31)
[2024-06-20] MEDS: PLAQUENIL 200 MG PO ×2 (08:31→19:42)
[2024-06-20] MEDS: COLACE 100 MG PO (08:31)
[2024-06-20] MEDS: PROTONIX 40 MG PO (08:31)
[2024-06-20] MEDS: MUCINEX 600 MG PO ×2 (08:31→19:42)
[2024-06-20] MEDS: CARDIZEM CD 240 MG PO (08:31)
[2024-06-20] MEDS: DELTASONE 5 MG PO (08:31)
[2024-06-20] MEDS: SENOKOT 8.6 MG PO ×2 (08:32→19:42)
[2024-06-20] MEDS: THERAGRAN 1 TABLET PO (08:32)
[2024-06-20] MEDS: LOPRESSOR 50 MG PO (08:32)
[2024-06-20] MEDS: PEPCID 10 MG PO (08:32)
[2024-06-20] MEDS: TYLENOL 500 MG PO (08:35)
--- NOTE | 2024-06-20 10:14 | W.PN.ID1 ---
Date of Service
Date of Service: June 20, 2024
Today's Communication
Continue cephalexin 500mg po q8h through 06/24/24 for soft tissue coverage.
ID will sign off.
Assessment / Plan
# Acute dry gangrene of left second toe status post amputation 06/17.
# PAD status post right lower extremity endovascular interventions 06/14.
# Leukocytosis resolved
- Has achieved surgical cure.
- Continue cephalexin 500mg po q8h through 06/24/24 for soft tissue coverage.
ID will sign off.
# Conditions [employer].
Hypertension
SLE
Chronic thrombocytopenia
Remote history of aplastic anemia/autoimmune hemolytic anemia treated with steroids/Rituxan
Hypothyroidism
HLD
COPD
CKD
PAD s/p endovascular interventions
Combined systolic and diastolic heart failure
CAD status post CABG
Aortic stenosis status post TAVR
Atrial fibrillation
History of Pseudomonas in sputum
Chief Complaint
-: Cellulitis
Subjective / Review of Systems
No complaints today.
Vital Signs / Physical Exam
Vital Signs
Vital Signs
Temp Pulse Resp BP Pulse Ox
97.6 F 70 16 118/61 96
06/20/24 07:32 06/20/24 07:42 06/20/24 07:42 06/20/24 08:32 06/20/24 07:42
Physical Exam
Constitutional: No Acute Distress and Comfortable
Cardiovascular: Regular Rate and S1/S2
Pulmonary: Clear
Gastrointestinal: Soft, Non Tender, Non Distended and Normal Bowel Sounds
Extremities: Negative Edema
Neurological: AO x 3
Objective Data
Lab Data
Lab Results
06/20/24 06:53
06/20/24 06:53
Estimated Creat Clear 24 ml/min 06/20/24 06:53
Total Bilirubin 0.5 mg/dl (0.2-1.3) 06/20/24 06:53
AST 54 U/L (14-36) H 06/20/24 06:53
ALT 31 U/L (0-35) 06/20/24 06:53
Alkaline Phosphatase 102 U/L (38-126) 06/20/24 06:53
Most recent labs reviewed.
Micro Results:
06/11/24 23:22 MRSA Screen - Final
Nose No Methicillin Resistant Staphylococcus aureus isolated.
06/15/24 Severe osseous destruction of the DISTAL PHALANX of the right 2nd toe consistent with SEVERE ACUTE OSTEOMYELITIS. Severe diffuse cellulitis throughout the right forefoot.
--- NOTE | 2024-06-20 10:46 | W.PN.HOSP.TC ---
Today's Communication/Plan
-
see A/P
Assessment / Plan
Assessment / Plan
79-year-old female with extensive past medical history who presented from [facility] as a transfer for right lower extremity arteriogram.
A/P:
# New necrotic right second toe/ Osteomyelitis of right second toe
Status post lower extremity arteriogram with angioplasty of dorsalis pedis, anterior tibial, plantar artery and posterior tibial. Postprocedure patient with good blood flow per vascular.
s/p right second toe amputation by Dr. Aidan Corea on Saturday 06/17.
Appreciate ID input, achieved surgical cure, can place on cephalexin 500mg po q8h through 06/24/24 for soft tissue coverage.
Per decision support analyst, heel WBAT to RLE, dressing change 1-2 times per week, apply betadine to surgical site, DSD, darya/kerlix wrap to RLE
PT OT cleared for HH
Follow up with Dr Corea at [facility] in 2 weeks following discharge
# Hyperkalemia, resolved
# Now hypokalemia
replete K PRN
# Chronic combined systolic/diastolic CHF
Echocardiogram showed EF of 40 to 45%, mildly reduced systolic function, global hypokinesis, TAVR bioprosthetic valve, mild to moderate regurgitation mitral valve, mild to moderate regurgitation pulmonic valve,
Currently on Bumex 4 mg PO daily
# Paroxysmal atrial flutter
# Essential Hypertension
on Cardizem 240 mg daily, continue metoprolol
holding Eliquis with worsening thrombocytopenia
Monitor Hgb
# Acute on chronic thrombocytopenia
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
Platelets dropped from 49 on admission to 25 today; baseline platelet count around 60-80 since March 2024, prior to this baseline was 100-130
Trend platelets closely.
D/w Onc 06/19, does not feel this is ITP flare, hence would not start steroid for ITP
D/w Rheum Dr Erick Frederick 06/19, he felt thrombocytopenia is not urgent and defer to Onc wrt IVIG or steroid
D/w Onc Dr Umanzor again 06/20, will order IVIG 1g/kg
# CAD status post CABG
No history of cardiac stent
per pt not on asa at home
# History of TAVR
# Acquired hypothyroidism
Continue levothyroxine
# COPD
Continue budesonide, formoterol, Mucinex, Xopenex
# History of SLE
Continue Plaquenil, prednisone,
# Chronic anemia
Remote history of aplastic anemia/autoimmune hemolytic anemia treated with steroids/Rituxan
Recently seen by outpatient hematology Dr. Moore on 04/24 who started Aranesp transfusion
Received first dose of Aranesp while inpatient on 06/07
# Community-acquired pneumonia
Repeat chest x-ray on 06/08 showed moderate bilateral scarring persistent opacity at the medial right base which could be atelectasis or pneumonia
Started on cefepime 06/08 due to prior history of Pseudomonas pneumonia- completed course
# Chronic kidney disease stage IIIA
Creatinine peaked 2.7 while on IV diuretics at OSH.
Today at 1.6. Baseline creatinine of 1.6-1.9
Cont Bumex 4 mg daily.
# Transaminitis likely secondary to hepatic congestion from heart failure
LFT improved
Full code
DVT prophylaxis� holding Eliquis with worsening thrombocytopenia
DW Onc Dr Umanzor
total time 51 min
Anticipated Discharge: 24 - 48 hours
Subjective/Interval History
-
Date of Service: June 20, 2024
Objective Data
-
Labs:
Laboratory Results
06/20/24
06:53
WBC 8.2
Hgb 7.9 L
Hct 25.7 L
Plt Count 25 L*
Sodium 137
Potassium 4.3
Chloride 105
Carbon Dioxide 25
BUN 61 H
Creatinine 1.6 H
Glucose 106 H
Calcium 8.7
Total Bilirubin 0.5
AST 54 H
ALT 31
Alkaline Phosphatase 102
Vital Signs:
Vital Signs
Temp Pulse Resp BP Pulse Ox
36.4 C 70 16 118/61 96
06/20/24 07:32 06/20/24 07:42 06/20/24 07:42 06/20/24 08:32 06/20/24 07:42
I&O
06/19/24 06/20/24 06/21/24
06:59 06:59 06:59
Intake Total 2099 1494 / 1494 660 / 660
Balance 2099 1494 / 1494 660 / 660
Review of Systems
-
History Source: Patient
All other systems: Reviewed and negative
Physical Exam
-
General: Well Developed, Well Nourished, No Apparent Distress, Comfortable and Conversant
HEENT: Normocephalic, Atraumatic and Moist Mucous Membranes
Respiratory: Clear to Auscultation and Non Labored Respirations; Negative Accessory Resp Muscle Use
Cardiac: Regular Rhythm and S1/S2
GI: Soft, Nontender, Nondistended and Normal Bowel Sounds; Negative Organomegaly
Rectal: Deferred by Provider
Musculoskeletal: No Clubbing, No Cyanosis and No Edema
Skin: Other (see wound care note)
Neuro: Awake, Alert, Oriented and AO x 3
Psych: Calm and Intact Judgement/Insight
Data Reviewed
-
Labs: Labs Reviewed by me, Discussed with Physician and Discussed with Patient
[2024-06-20 11:14] VITALS: BP 110/63
[2024-06-20] MEDS: BENADRYL 25 MG PO (11:42)
[2024-06-20] MEDS: TYLENOL 1000 MG PO (11:42)
--- NOTE | 2024-06-20 13:33 | CM ---
Reviewed the chart notes. CM continues to be available to patient/family and is monitoring medical plan for needs at discharge.
Plan: Discharge to patient's daughter's home with [facility] services.
[facility]
[2024-06-20] MEDS: GAMMAGARD 200 IV (13:59)
[2024-06-20 15:12] VITALS: BP 127/69
[2024-06-20] MEDS: GAMMAGARD 300 IV (16:49)
[2024-06-20] MEDS: LASIX 20 MG IV (19:06)
[2024-06-20 19:30] VITALS: BP 108/51
[2024-06-20] MEDS: LOPRESSOR PO (19:43)
[2024-06-20] MEDS: COLACE PO (19:44)
[2024-06-20] MEDS: RESTASIS 0.05% OPHTHALMIC EMULSION 1 DROPS OPHTH (21:41)
[2024-06-20] MEDS: TUMS CHEWABLE TABLET 200 MG PO (22:08)
[2024-06-20 23:04] VITALS: BP 111/53
[2024-06-21] VITALS (7 sets, daily range): BP systolic 108–129; BP diastolic 53–75; PULSE 80; O2SAT 100; BMI 22.5
[2024-06-21] MEDS: SYMBICORT 160/4.5 MCG INHALER 2 PUFF INH ×2 (06:06→19:48)
[2024-06-21] MEDS: ProAIR HFA INHALER 1 PUFF INH ×2 (06:06→19:49)
[2024-06-21] MEDS: SYNTHROID 62.5 MCG PO (06:17)
[2024-06-21] MEDS: KEFLEX 500 MG PO ×3 (06:18→22:13)
--- NOTE | 2024-06-21 08:21 | W.PN.ONC2 ---
Documented by User: YULISSA Moseley 06/21/24 12:49
Today's Communication / Plan
-
.
Impression
Impression
SLE
immune mediated thrombocytopenia 2/ SLE s/p IVIG 1g/kg 06/20 without improvement of thrombocytopenia today
PAD status post amputation 06/17 of left second toe
Hypothyroidism
Hyperlipidemia
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
Plan
Plan
repeat IVIG 1g/kg (IBW per kelsey) today -premed with Tylenol and Benadryl
monitor for bleeding
Follow CBC.
Updates provided to sister, Sabina, on the phone per pt request
Subjective/Objective
Subjective
no new complaints
Vital Signs:
Vital Signs
Temp Pulse Resp BP Pulse Ox
98.6 F 80 16 118/61 100
06/21/24 07:25 06/21/24 07:25 06/21/24 07:25 06/21/24 07:25 06/21/24 07:25
Lab Results:
Laboratory Data
WBC 8.2 10^3/uL (4.8-10.8) 06/20/24 06:53
Hgb 7.9 g/dL (12.0-16.0) L 06/20/24 06:53
Plt Count 25 10^3/uL (130-400) L* 06/20/24 06:53
eGFR 33.01 06/20/24 06:53
Physical Exam
HEENT: Moist Mucous Membranes; No Jaundice
Cardiology: Normal Sinus Rhythm
Pulmonary: Clear
GI: Soft
Extremities: Pulses Present and Other (RLE boot, right ankle with confluent brusing)
Neuro: Non Focal
Skin: scattered purpura bilateral arms
Orders
Orders
Orders From Last 24 Hours
06/20/24 11:30
Acetaminophen [Tylenol] 1,000 mg PO ONCE ONE
Diphenhydramine [Benadryl] 25 mg PO ONCE ONE
06/20/24 12:00
Immune Globulin 20 Grams/200Ml [Gammagard] 20 gram in 200 ml IV ONCE@1200
06/20/24 13:00
Immune Globulin 30 Grams/300Ml [Gammagard] 30 grams in 300 ml IV ONCE@1300
06/21/24 06:00
B12 [Vitamin B12] IN AM
Fibrinogen IN AM
Folate IN AM
INR [Prothrombin Time] IN AM
PTT IN AM

Documented by User: Aryan Srinivasan MD 06/21/24 12:53
Plan
Plan
repeat IVIG 1g/kg (IBW per ROSS cole) today -premed with Tylenol and Benadryl
monitor for bleeding
Follow CBC.
Updates provided to sisterSabina, on the phone per pt request
Hematology/ Oncology Addendum:
Patient seen and evaluated and agree w/ TELETYPE TELEGRAPHER note and plan as outlined
-thrombocytopenia - potentially multifactorial - h/o SLE/immune thrombocytopenia vs. infection/ inflammation - w/ osteomyelitis s/p amputation of toe vs. component of medication induced - on antibiotics
-plts stable - no apparent bleeding
-2nd dose IVIG today
-follow CBC
Will continue to follow with you.
[2024-06-21 09:14] LABS: Hematocrit 24.2 % (37.0-47.0); Hemoglobin 7.5 g/dL (12.0-16.0); Mean Corpuscular Hgb 27.8 pg (27.0-31.0); Mean Corpuscular Volume 89.6 fL (81.0-99.0); Platelet Count 23 10^3/uL (130-400); Red Cell Dist. Width 16.2 % (11.5-14.5); White Blood Cell Count 6.2 10^3/uL (4.8-10.8)
[2024-06-21 09:15] LABS: Fibrinogen 361 MG/DL (199-459); INR 1.21; PT 15.6 Sec (11.4-14.6)
--- NOTE | 2024-06-21 09:42 | W.PN.HOSP.TC ---
Today's Communication/Plan
-
see A/P
Assessment / Plan
Assessment / Plan
79-year-old female with extensive past medical history who presented from [facility] as a transfer for right lower extremity arteriogram.
A/P:
# New necrotic right second toe/ Osteomyelitis of right second toe
Status post lower extremity arteriogram with angioplasty of dorsalis pedis, anterior tibial, plantar artery and posterior tibial. Postprocedure patient with good blood flow per vascular.
s/p right second toe amputation by Dr. Aidan Corea on Saturday 06/17.
Appreciate ID input, achieved surgical cure, placed on cephalexin 500mg po q8h through 06/24/24 for soft tissue coverage.
Per wellness consultant, heel WBAT to RLE, dressing change 1-2 times per week, apply betadine to surgical site, DSD, darya/kerlix wrap to RLE
PT OT cleared for HH
Follow up with Dr Corea at [facility] in 2 weeks following discharge
# Hyperkalemia, resolved
# hypokalemia, replete PRN
# Chronic combined systolic/diastolic CHF
Echocardiogram showed EF of 40 to 45%, mildly reduced systolic function, global hypokinesis, TAVR bioprosthetic valve, mild to moderate regurgitation mitral valve, mild to moderate regurgitation pulmonic valve,
Cont home Bumex 4 mg PO daily
Additional IV lasix 20 mg PRN for swelling following IVIG (see below)
# Paroxysmal atrial flutter
# Essential Hypertension
on Cardizem 240 mg daily, continue metoprolol
holding Eliquis with worsening thrombocytopenia
Monitor Hgb
# Acute on chronic thrombocytopenia
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
Platelets dropped from 49 on admission to 23 today; baseline platelet count around 60-80 since March 2024, prior to this baseline was 100-130
D/w Onc 06/19, does not feel this is ITP flare,
D/w Rheum Dr Erick Frederick 06/19, he felt thrombocytopenia is not urgent and defer to Onc wrt IVIG or steroid
D/w Onc Dr Umanzor again 06/20, who ordered IVIG 1g/kg x1 dose
Trend platelets closely.
Defer to Onc if pt needs additional IVIG or platelet transfusion
# CAD status post CABG
No history of cardiac stent
per pt not on asa at home
# History of TAVR
# Acquired hypothyroidism
Continue levothyroxine
# COPD
Continue budesonide, formoterol, Mucinex, Xopenex
# History of SLE
Continue Plaquenil, prednisone,
# Chronic anemia
Remote history of aplastic anemia/autoimmune hemolytic anemia treated with steroids/Rituxan
Recently seen by outpatient hematology Dr. Moore on 04/24 who started Aranesp transfusion
Received first dose of Aranesp while inpatient on 06/07
# Community-acquired pneumonia
Repeat chest x-ray on 06/08 showed moderate bilateral scarring persistent opacity at the medial right base which could be atelectasis or pneumonia
Started on cefepime 06/08 due to prior history of Pseudomonas pneumonia- completed course
# Chronic kidney disease stage IIIA
Creatinine peaked 2.7 while on IV diuretics at OSH, trended down to 1.6. Baseline creatinine of 1.6-1.9
Cont Bumex 4 mg daily.
# Transaminitis likely secondary to hepatic congestion from heart failure
LFT improved
Full code
DVT prophylaxis� holding Eliquis with worsening thrombocytopenia
DW RN
DW Onc
DW pt's sister on the phone and brother at bedside
total time 51 min
Anticipated Discharge: 24 - 48 hours
Subjective/Interval History
-
Date of Service: June 21, 2024
Objective Data
-
Labs:
Laboratory Results
06/21/24
08:53
WBC 6.2
Hgb 7.5 L
Hct 24.2 L
Plt Count 23 L*
PT 15.6 H
INR 1.21
APTT 28.0
Sodium Pending
Potassium Pending
Chloride Pending
Carbon Dioxide Pending
BUN Pending
Creatinine Pending
Glucose Pending
Calcium Pending
Total Bilirubin Pending
AST Pending
ALT Pending
Alkaline Phosphatase Pending
Vital Signs:
Vital Signs
Temp Pulse Resp BP Pulse Ox
37.0 C 80 16 118/61 100
06/21/24 07:25 06/21/24 07:25 06/21/24 07:25 06/21/24 07:25 06/21/24 07:25
I&O
06/20/24 06/21/24 06/22/24
06:59 06:59 06:59
Intake Total 1494 / 1494 1260 / 1260
Output Total 150 / 150
Balance 1494 / 1494 1110 / 1110
Review of Systems
-
History Source: Patient
All other systems: Reviewed and negative
Physical Exam
-
General: Well Developed, Well Nourished, No Apparent Distress, Comfortable and Conversant
HEENT: Normocephalic, Atraumatic and Moist Mucous Membranes
Respiratory: Clear to Auscultation and Non Labored Respirations; Negative Accessory Resp Muscle Use
Cardiac: Regular Rhythm and S1/S2
GI: Soft, Nontender, Nondistended and Normal Bowel Sounds; Negative Organomegaly
Rectal: Deferred by Provider
Musculoskeletal: No Clubbing, No Cyanosis and No Edema
Skin: Other (see wound care note)
Neuro: Awake, Alert, Oriented and AO x 3
Psych: Calm and Intact Judgement/Insight
Data Reviewed
-
Labs: Labs Reviewed by me, Discussed with Physician and Discussed with Patient
[2024-06-21] MEDS: BUMEX 4 MG PO (09:48)
[2024-06-21] MEDS: PEPCID 10 MG PO (09:49)
[2024-06-21] MEDS: PLAQUENIL 200 MG PO ×2 (09:49→20:37)
[2024-06-21] MEDS: MUCINEX 600 MG PO ×2 (09:49→20:36)
[2024-06-21] MEDS: PROTONIX 40 MG PO (09:49)
[2024-06-21] MEDS: THERAGRAN 1 TABLET PO (09:49)
[2024-06-21] MEDS: DELTASONE 5 MG PO (09:49)
[2024-06-21] MEDS: LOPRESSOR 50 MG PO ×2 (09:49→20:38)
[2024-06-21] MEDS: SENOKOT 8.6 MG PO (09:50)
[2024-06-21] MEDS: COLACE 100 MG PO (09:50)
[2024-06-21] MEDS: CARDIZEM CD 240 MG PO (09:51)
[2024-06-21] MEDS: LASIX 20 MG IV (10:17)
[2024-06-21 11:10] LABS: ALT (SGPT) 76 U/L (0-35); AST (SGOT) 95 U/L (14-36); Alkaline Phosphatase 154 U/L (38-126); Blood Urea Nitrogen 71 mg/dl (7-17); Calcium 8.4 mg/dl (8.4-10.2); Carbon Dioxide 24 mmol/L (22-30); Chloride 102 mmol/L (98-107); Direct Bilirubin 0.3 mg/dl (0.0-0.4); Estimated Creatinine Clearance 22 ml/min; Glucose 92 mg/dl (70-99); Potassium 4.8 mmol/L (3.5-5.1); Sodium 136 mmol/L (135-145); Total Bilirubin 0.6 mg/dl (0.2-1.3); Total Protein 6.7 g/dl (6.3-8.2); eGFR 28.66
[2024-06-21 11:16] LABS: Folate > 20.0 ng/ml (2.76-20); Vitamin B12 802 pg/ml (239-931)
[2024-06-21] MEDS: TYLENOL 650 MG PO (14:03)
[2024-06-21] MEDS: BENADRYL 25 MG PO (14:03)
[2024-06-21] MEDS: GAMMAGARD 200 IV (14:50)
--- NOTE | 2024-06-21 15:31 | CM ---
Reviewed the chart notes and spoke with the patient at the bedside. Patient has decided on discharge to daughter's house with [facility] services. CM continues to be available to patient/family and is monitoring medical plan for needs at
discharge.
Plan: Discharge to patient's daughter's home when medically stable. [facility] will follow.
[facility]
[2024-06-21] MEDS: GAMMAGARD 300 IV (17:54)
[2024-06-21] MEDS: COLACE PO (20:37)
[2024-06-21] MEDS: SENOKOT PO (20:38)
[2024-06-21] MEDS: TYLENOL 500 MG PO (20:38)
[2024-06-21] MEDS: TUMS CHEWABLE TABLET 200 MG PO (20:56)
[2024-06-21] MEDS: RESTASIS 0.05% OPHTHALMIC EMULSION 1 DROPS OPHTH (22:13)
[2024-06-22] MEDS: VENTOLIN NEBULES 2.5 MG INH ×3 (00:49→17:56)
[2024-06-22 03:28] VITALS: BP 119/68
[2024-06-22 06:00] VITALS: BMI 22.6
[2024-06-22] MEDS: SYNTHROID 62.5 MCG PO (06:11)
[2024-06-22] MEDS: KEFLEX 500 MG PO ×3 (06:11→23:07)
[2024-06-22] MEDS: SYMBICORT 160/4.5 MCG INHALER 2 PUFF INH ×2 (07:42→17:56)
[2024-06-22 08:05] VITALS: BP 110/58
[2024-06-22] MEDS: BUMEX 4 MG PO (08:51)
[2024-06-22] MEDS: PROTONIX 40 MG PO (08:51)
[2024-06-22] MEDS: THERAGRAN 1 TABLET PO (08:51)
[2024-06-22] MEDS: MUCINEX 600 MG PO ×2 (08:51→20:35)
[2024-06-22] MEDS: DELTASONE 5 MG PO (08:51)
[2024-06-22] MEDS: CARDIZEM CD 240 MG PO (08:51)
[2024-06-22] MEDS: PLAQUENIL 200 MG PO ×2 (08:51→20:35)
[2024-06-22 08:52] LABS: ALT (SGPT) 141 U/L (0-35); AST (SGOT) 171 U/L (14-36); Albumin 3.1 g/dl (3.5-5.0); Alkaline Phosphatase 231 U/L (38-126); Blood Urea Nitrogen 77 mg/dl (7-17); Calcium 8.5 mg/dl (8.4-10.2); Carbon Dioxide 23 mmol/L (22-30); Chloride 100 mmol/L (98-107); Direct Bilirubin 0.4 mg/dl (0.0-0.4); Estimated Creatinine Clearance 19 ml/min; Glucose 87 mg/dl (70-99); Sodium 135 mmol/L (135-145); Total Bilirubin 0.6 mg/dl (0.2-1.3); Total Protein 7.9 g/dl (6.3-8.2); eGFR 23.82
[2024-06-22] MEDS: PEPCID 10 MG PO (08:52)
[2024-06-22] MEDS: LOPRESSOR 50 MG PO ×2 (08:53→20:34)
[2024-06-22] MEDS: COLACE PO ×2 (08:53→20:36)
[2024-06-22] MEDS: SENOKOT PO ×2 (08:54→20:49)
[2024-06-22 08:56] LABS: Hematocrit 25.1 % (37.0-47.0); Hemoglobin 7.7 g/dL (12.0-16.0); Mean Corp Hgb Conc. 30.7 g/dL (33.0-37.0); Mean Corpuscular Hgb 27.9 pg (27.0-31.0); Mean Corpuscular Volume 90.9 fL (81.0-99.0); Platelet Count 26 10^3/uL (130-400); Red Blood Cell Count 2.76 10^6/uL (4.20-5.40); Red Cell Dist. Width 16.3 % (11.5-14.5); White Blood Cell Count 6.5 10^3/uL (4.8-10.8)
--- NOTE | 2024-06-22 10:11 | W.PN.HOSP.TC ---
Today's Communication/Plan
-
Has worsening SOB, and less energy.
Assessment / Plan
Assessment / Plan
79-year-old female with extensive past medical history who presented from [facility] as a transfer for right lower extremity arteriogram.
Notable values today:
H/H 7.7/25.1 (improving)
PLT 26 (improving)
BUN/Creat 77/2.1 (worsening)
A/P:
1. New necrotic right second toe/ Osteomyelitis of right second toe
Status post lower extremity arteriogram with angioplasty of dorsalis pedis, anterior tibial, plantar artery and posterior tibial.
Postprocedure patient with good blood flow per vascular.
s/p right second toe amputation by Dr. Aidan Corea on Saturday 06/17.
Appreciate ID input, achieved surgical cure, placed on cephalexin 500mg po q8h through 06/24/24 for soft tissue coverage.
Per senior hr business partner, heel WBAT to RLE, dressing change 1-2 times per week, apply betadine to surgical site, DSD, darya/kerlix wrap to RLE
PT OT cleared for HH
Follow up with Dr Corea at [facility] in 2 weeks following discharge
2. Hyperkalemia, resolved
3. hypokalemia, replete PRN - not needed today, K 5.0
Follow daily while in hospital
4. Chronic combined systolic/diastolic CHF - she feels more SOB today
Echocardiogram showed EF of 40 to 45%, mildly reduced systolic function, global hypokinesis, TAVR bioprosthetic valve, mild to moderate regurgitation mitral valve, mild to moderate regurgitation pulmonic valve,
Cont home Bumex 4 mg PO daily
Additional IV lasix 20 mg PRN1 given for swelling following IVIG (see below)
Check CXR today
5. Paroxysmal atrial flutter - appears to be in sinus now
6. Essential Hypertension
on Cardizem 240 mg daily, continue metoprolol
holding Eliquis with worsening thrombocytopenia
Monitor Hgb
7. 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
Platelets dropped from 49 on admission to 23 then 26 today;
baseline platelet count around 60-80 since March 2024, prior to this baseline was 100-130
D/w Onc 06/19, does not feel this is ITP flare,
D/w Rheum Dr Erick Frederick 06/19, he felt thrombocytopenia is not urgent and defer to Onc wrt IVIG or steroid
D/w Onc Dr Umanzor again 06/20, who ordered IVIG 1g/kg x1 dose
Trend platelets closely.
Defer to Onc if pt needs additional ongoing IVIG or platelet transfusion
8. CAD status post CABG - No history of cardiac stent
per pt not on asa at home
9. History of TAVR
10. Acquired hypothyroidism
Continue levothyroxine
11. COPD - note increased SOB today
Continue budesonide, formoterol, Mucinex, Xopenex
12. History of SLE
Continue Plaquenil, prednisone,
13. Chronic anemia - improving
Remote history of aplastic anemia/autoimmune hemolytic anemia treated with steroids/Rituxan
Recently seen by outpatient hematology Dr. Moore on 04/24 who started Aranesp transfusion
Received first dose of Aranesp while inpatient on 06/07
14. Community-acquired pneumonia
Repeat chest x-ray on 06/08 showed moderate bilateral scarring persistent opacity at the medial right base which could be atelectasis or pneumonia
Started on cefepime 06/08 due to prior history of Pseudomonas pneumonia- completed course
Will recheck CXR today
15. Chronic kidney disease stage IIIA - BUN/Creat worsening, today 77/2.1
Creatinine peaked 2.7 while on IV diuretics at OSH, trended down to 1.6.
Baseline creatinine of 1.6-1.9
Cont Bumex 4 mg daily.
May need to back off on diuresis if renal function worse tomorrow
16. Transaminitis likely secondary to hepatic congestion from heart failure
LFT improved
Recheck LFT tomorrow
Full code
DVT prophylaxis� holding Eliquis with worsening thrombocytopenia
total time 51 min
Anticipated Discharge: > 48 hours
Subjective/Interval History
-
Date of Service: June 22, 2024
Feels more short of breath
Objective Data
-
Labs:
Laboratory Results
06/22/24
07:42
WBC 6.5
Hgb 7.7 L
Hct 25.1 L
Plt Count 26 L*
Sodium 135
Potassium 5.0
Chloride 100
Carbon Dioxide 23
BUN 77 H
Creatinine 2.1 H
Glucose 87
Calcium 8.5
Total Bilirubin 0.6
AST 171 H
ALT 141 H
Alkaline Phosphatase 231 H
Vital Signs:
Vital Signs
Temp Pulse Resp BP Pulse Ox
97.5 F 82 16 110/58 100
06/22/24 08:05 06/22/24 08:53 06/22/24 08:05 06/22/24 08:53 06/22/24 08:05
I&O
06/21/24 06/22/24 06/23/24
06:59 06:59 06:59
Intake Total 1260 / 1260 1440 / 1440
Output Total 150 / 150
Balance 1110 / 1110 1440 / 1440
Review of Systems
-
History Source: Patient
All other systems: Reviewed and negative
Physical Exam
-
General: Well Developed, Well Nourished and No Apparent Distress
HEENT: Nose Appears Normal and Ears Appear Normal
Respiratory: Clear to Auscultation
Cardiac: Regular Rhythm and S1/S2
GI: Soft, Nontender and Nondistended
Musculoskeletal: No Clubbing, No Cyanosis and No Edema
Skin: Warm and Dry
Neuro: Awake, Alert and Oriented
Psych: Calm
Data Reviewed
-
Labs: Labs Reviewed by me
[2024-06-22 11:40] VITALS: BP 116/73
--- NOTE | 2024-06-22 11:45 | W.PN.ONC ---
Today's Communication / Plan
-
plts 26,000
monitor CBC
Impression
Impression
SLE
immune mediated thrombocytopenia 2/2 SLE s/p IVIG 1g/kg 06/20 without improvement of thrombocytopenia today
PAD status post amputation 06/17 of left second toe
Hypothyroidism
Hyperlipidemia
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
Plan
Plan
1. Thrombocytopenia - potentially multifactorial w/ h/o SLE - immune thrombocytopenia as wel las ongoing infection/ inflammation as well as cephalosporin antibiotics
-received 2nd dose of IVIG yesterday w/ minimal change in platelet count
-plt stable 26,000
-no apparent bleeding
-monitor CBC
Will continue to follow with you.
Subjective/Objective
Subjective/Objective
Feels tired, no apparent bleeding.
Vital Signs:
Vital Signs
Temp Pulse Resp BP Pulse Ox
97.5 F 82 16 110/58 100
06/22/24 08:05 06/22/24 08:53 06/22/24 08:05 06/22/24 08:53 06/22/24 08:05
Lab Results:
Laboratory Data
WBC 6.5 10^3/uL (4.8-10.8) 06/22/24 07:42
Hgb 7.7 g/dL (12.0-16.0) L 06/22/24 07:42
Plt Count 26 10^3/uL (130-400) L* 06/22/24 07:42
PT 15.6 Sec (11.4-14.6) H 06/21/24 08:53
INR 1.21 06/21/24 08:53
APTT 28.0 Sec (23.4-35.0) 06/21/24 08:53
eGFR 23.82 06/22/24 07:42
Exam: unchanged
--- NOTE | 2024-06-22 12:08 | CM ---
Patient seen at bedside in [address] [place] [address]. Patient states that she is not feeling well today and does not anticipate discharge. CM will continue to follow for discharge planning needs.
Plan;home with [facility] ; confirm acceptance
[2024-06-22 15:10] VITALS: BP 130/73
[2024-06-22] MEDS: SENOKOT 8.6 MG PO (20:36)
[2024-06-22] MEDS: RESTASIS 0.05% OPHTHALMIC EMULSION 1 DROPS OPHTH (23:07)
[2024-06-22] MEDS: TYLENOL 500 MG PO (23:10)
[2024-06-22 23:20] VITALS: BP 144/56
[2024-06-22] MEDS: ProAIR HFA INHALER 1 PUFF INH (23:39)
[2024-06-23] MEDS: SYNTHROID 62.5 MCG PO (05:52)
[2024-06-23] MEDS: KEFLEX 500 MG PO ×3 (05:52→21:21)
[2024-06-23 06:00] VITALS: BMI 22.1
[2024-06-23 06:43] LABS: ALT (SGPT) 175 U/L (0-35); AST (SGOT) 175 U/L (14-36); Albumin 2.8 g/dl (3.5-5.0); Alkaline Phosphatase 288 U/L (38-126); Blood Urea Nitrogen 80 mg/dl (7-17); Calcium 8.6 mg/dl (8.4-10.2); Carbon Dioxide 23 mmol/L (22-30); Chloride 103 mmol/L (98-107); Estimated Creatinine Clearance 19 ml/min; Glucose 96 mg/dl (70-99); Hematocrit 23.5 % (37.0-47.0); Hemoglobin 7.5 g/dL (12.0-16.0); Mean Corp Hgb Conc. 31.9 g/dL (33.0-37.0); Mean Corpuscular Hgb 27.8 pg (27.0-31.0); Platelet Count 24 10^3/uL (130-400); Potassium 4.3 mmol/L (3.5-5.1); Red Cell Dist. Width 16.1 % (11.5-14.5); Sodium 136 mmol/L (135-145); Total Bilirubin 0.6 mg/dl (0.2-1.3); Total Protein 7.1 g/dl (6.3-8.2); White Blood Cell Count 5.9 10^3/uL (4.8-10.8); eGFR 23.82
[2024-06-23] MEDS: ProAIR HFA INHALER 1 PUFF INH (07:11)
[2024-06-23] MEDS: SYMBICORT 160/4.5 MCG INHALER 2 PUFF INH ×2 (07:12→20:11)
[2024-06-23 07:50] VITALS: BP 133/69
[2024-06-23] MEDS: LOPRESSOR 50 MG PO ×2 (08:18→21:20)
[2024-06-23] MEDS: MUCINEX 600 MG PO ×2 (08:19→21:21)
[2024-06-23] MEDS: PEPCID 10 MG PO (08:19)
[2024-06-23] MEDS: DELTASONE 5 MG PO (08:19)
[2024-06-23] MEDS: THERAGRAN 1 TABLET PO (08:19)
[2024-06-23] MEDS: PROTONIX 40 MG PO (08:20)
[2024-06-23] MEDS: PLAQUENIL 200 MG PO ×2 (08:20→21:21)
[2024-06-23] MEDS: CARDIZEM CD 240 MG PO (08:20)
[2024-06-23] MEDS: COLACE PO ×2 (08:21→21:20)
[2024-06-23] MEDS: BUMEX 4 MG PO (08:22)
--- NOTE | 2024-06-23 14:46 | W.PN.HOSP.TC ---
Today's Communication/Plan
-
Has crackles in lungs, but renal function worse. Will ask consultants for advice with diuresis.
Assessment / Plan
Assessment / Plan
79-year-old female with extensive past medical history who presented from [facility] as a transfer for right lower extremity arteriogram.
Notable values today:
06/22/24 06/23/24
H/H 7.7/25.1 7.5/23.5 (worsening)
PLT 26 24 (worsening)
BUN/Creat 77/2.1 80/2.1 (worsening)
AST/ALT 171/141 175/175 (worsening)
Alk Phos 231 288 (worsening)
CXR Improving PNA
A/P:
1. New necrotic right second toe/ Osteomyelitis of right second toe
Status post lower extremity arteriogram with angioplasty of dorsalis pedis, anterior tibial, plantar artery and posterior tibial.
Postprocedure patient with good blood flow per vascular.
s/p right second toe amputation by Dr. Aidan Corea on Saturday 06/17.
Appreciate ID input, achieved surgical cure, placed on cephalexin 500mg po q8h through 06/24/24 for soft tissue coverage.
Per network systems analyst, heel WBAT to RLE, dressing change 1-2 times per week, apply betadine to surgical site, DSD, darya/kerlix wrap to RLE
PT OT cleared for HH
Follow up with Dr Corea at [facility] in 2 weeks following discharge
2. Hyperkalemia, resolved
3. hypokalemia, replete PRN - not needed today, K 4.3
Follow daily while in hospital
4. Chronic combined systolic/diastolic CHF - she continues to have SOB today
Echocardiogram showed EF of 40 to 45%, mildly reduced systolic function, global hypokinesis, TAVR bioprosthetic valve, mild to moderate regurgitation mitral valve, mild to moderate regurgitation pulmonic valve,
Cont home Bumex 4 mg PO daily
Additional IV lasix 20 mg PRN1 given for swelling following IVIG (see below)
Lungs have significant crackles, however, renal function worsening
Will consult Cardiology & nephrology for advice with diuresis
5. Paroxysmal atrial flutter - appears to be in sinus now
6. Essential Hypertension
on Cardizem 240 mg daily, continue metoprolol
holding Eliquis with worsening thrombocytopenia
Monitor Hgb
7. 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
Platelets dropped from 49 on admission to 23 then 26 then 24 today;
baseline platelet count around 60-80 since March 2024, prior to this baseline was 100-130
D/w Onc 06/19, does not feel this is ITP flare,
D/w Rheum Dr Erick Frederick 06/19, he felt thrombocytopenia is not urgent and defer to Onc wrt IVIG or steroid
D/w Onc Dr Umanzor again 06/20, who ordered IVIG 1g/kg x1 dose
Trend platelets closely.
Defer to Onc if pt needs additional ongoing IVIG or platelet transfusion
8. CAD status post CABG - No history of cardiac stent
per pt not on asa at home
9. History of TAVR
10. Acquired hypothyroidism
Continue levothyroxine
11. COPD - note increased SOB today
Continue budesonide, formoterol, Mucinex, Xopenex
12. History of SLE
Continue Plaquenil, prednisone,
13. Chronic anemia - improving
Remote history of aplastic anemia/autoimmune hemolytic anemia treated with steroids/Rituxan
Recently seen by outpatient hematology Dr. Moore on 04/24 who started Aranesp transfusion
Received first dose of Aranesp while inpatient on 06/07
14. Community-acquired pneumonia
Repeat chest x-ray on 06/08 showed moderate bilateral scarring persistent opacity at the medial right base which could be atelectasis or pneumonia
Started on cefepime 06/08 due to prior history of Pseudomonas pneumonia- completed course
Will recheck CXR today
15. Chronic kidney disease stage IIIA - BUN/Creat worsening, today 80/2.1
Creatinine peaked 2.7 while on IV diuretics at OSH, trended down to 1.6.
Baseline creatinine of 1.6-1.9
Cont Bumex 4 mg daily.
May need to back off on diuresis if renal function worse tomorrow
16. Transaminitis likely secondary to hepatic congestion from heart failure
LFT improved
Recheck LFT tomorrow
Full code
DVT prophylaxis� holding Eliquis with worsening thrombocytopenia
total time 51 min
Anticipated Discharge: 24 - 48 hours
Subjective/Interval History
-
Date of Service: June 23, 2024
Feels tired, but otherwise well.
Objective Data
-
Labs:
Laboratory Results
06/23/24
05:09
WBC 5.9
Hgb 7.5 L
Hct 23.5 L
Plt Count 24 L*
Sodium 136
Potassium 4.3
Chloride 103
Carbon Dioxide 23
BUN 80 H
Creatinine 2.1 H
Glucose 96
Calcium 8.6
Total Bilirubin 0.6
AST 175 H
ALT 175 H
Alkaline Phosphatase 288 H
Vital Signs:
Vital Signs
Temp Pulse Resp BP Pulse Ox
98.0 F 74 16 133/69 97
06/23/24 07:50 06/23/24 08:22 06/23/24 07:50 06/23/24 08:22 06/23/24 07:50
I&O
06/22/24 06/23/24 06/24/24
06:59 06:59 06:59
Intake Total 1440 / 1440 380 / 380 480 / 480
Balance 1440 / 1440 380 / 380 480 / 480
Review of Systems
-
History Source: Patient
All other systems: Reviewed and negative
Physical Exam
-
General: Well Developed, Well Nourished, No Apparent Distress and Comfortable
HEENT: Nose Appears Normal and Ears Appear Normal
Respiratory: Crackles
Cardiac: Regular Rhythm and S1/S2
GI: Soft, Nontender and Nondistended
Musculoskeletal: No Clubbing and No Cyanosis
Skin: Warm and Dry
Neuro: Awake, Alert and Oriented
Psych: Calm
Data Reviewed
-
Labs: Labs Reviewed by me
--- NOTE | 2024-06-23 15:31 | W.PN.ONC ---
Today's Communication / Plan
-
CBC stable
monitor CBC
Impression
Impression
SLE
thrombocytopenia - multifactorial - possible component of baseline immune mediated thrombocytopenia - exacerbated by ongoing infection/ inflammation
PAD status post amputation 06/17 of left second toe
Hypothyroidism
Hyperlipidemia
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
Plan
Plan
1. Thrombocytopenia - potentially multifactorial w/ h/o SLE - immune thrombocytopenia as well as ongoing infection/ inflammation as well as cephalosporin antibiotics
-received 2nd dose of IVIG / w/ minimal change in platelet count
-plt stable 24,000
-no apparent bleeding
-monitor CBC
Will continue to follow with you.
Subjective/Objective
Subjective/Objective
no new complaints, afebrile
Vital Signs:
Vital Signs
Temp Pulse Resp BP Pulse Ox
98.0 F 74 16 133/69 97
06/23/24 07:50 06/23/24 08:22 06/23/24 07:50 06/23/24 08:22 06/23/24 07:50
Exam: unchanged
Lab Results:
Laboratory Data
WBC 5.9 10^3/uL (4.8-10.8) 06/23/24 05:09
Hgb 7.5 g/dL (12.0-16.0) L 06/23/24 05:09
Plt Count 24 10^3/uL (130-400) L* 06/23/24 05:09
PT 15.6 Sec (11.4-14.6) H 06/21/24 08:53
INR 1.21 06/21/24 08:53
APTT 28.0 Sec (23.4-35.0) 06/21/24 08:53
eGFR 23.82 06/23/24 05:09
[2024-06-23 15:53] VITALS: BP 123/59
[2024-06-23] MEDS: SENOKOT PO (21:20)
[2024-06-23] MEDS: RESTASIS 0.05% OPHTHALMIC EMULSION 1 DROPS OPHTH (21:21)
[2024-06-23] MEDS: TYLENOL 500 MG PO (23:24)
[2024-06-23 23:45] VITALS: BP 124/62
[2024-06-24] VITALS (8 sets, daily range): BP systolic 126–140; BP diastolic 59–75; BMI 22.1
[2024-06-24] MEDS: SYNTHROID 62.5 MCG PO (05:22)
[2024-06-24] MEDS: KEFLEX 500 MG PO ×3 (05:22→21:50)
[2024-06-24 07:15] LABS: ALT (SGPT) 200 U/L (0-35); AST (SGOT) 177 U/L (14-36); Albumin 2.8 g/dl (3.5-5.0); Alkaline Phosphatase 331 U/L (38-126); Blood Urea Nitrogen 79 mg/dl (7-17); Calcium 8.7 mg/dl (8.4-10.2); Carbon Dioxide 25 mmol/L (22-30); Chloride 106 mmol/L (98-107); Estimated Creatinine Clearance 23 ml/min; Glucose 102 mg/dl (70-99); Potassium 3.7 mmol/L (3.5-5.1); Sodium 138 mmol/L (135-145); Total Bilirubin 0.5 mg/dl (0.2-1.3); Total Protein 6.8 g/dl (6.3-8.2)
[2024-06-24] MEDS: SYMBICORT 160/4.5 MCG INHALER 2 PUFF INH ×2 (07:24→20:54)
[2024-06-24 07:35] LABS: Hematocrit 24.1 % (37.0-47.0); Hemoglobin 7.5 g/dL (12.0-16.0); Mean Corp Hgb Conc. 31.1 g/dL (33.0-37.0); Mean Corpuscular Hgb 27.9 pg (27.0-31.0); Mean Corpuscular Volume 89.6 fL (81.0-99.0); Platelet Count 23 10^3/uL (130-400); Red Blood Cell Count 2.69 10^6/uL (4.20-5.40); Red Cell Dist. Width 16.5 % (11.5-14.5); White Blood Cell Count 5.2 10^3/uL (4.8-10.8)
[2024-06-24] MEDS: PROTONIX 40 MG PO (08:04)
[2024-06-24] MEDS: PEPCID 10 MG PO (08:05)
[2024-06-24] MEDS: SENOKOT 8.6 MG PO ×2 (08:05→21:50)
[2024-06-24] MEDS: MUCINEX 600 MG PO ×2 (08:05→21:50)
[2024-06-24] MEDS: PLAQUENIL 200 MG PO ×2 (08:05→21:49)
[2024-06-24] MEDS: THERAGRAN 1 TABLET PO (08:05)
[2024-06-24] MEDS: COLACE 100 MG PO ×2 (08:05→21:50)
[2024-06-24] MEDS: DELTASONE 5 MG PO (08:06)
[2024-06-24] MEDS: BUMEX 4 MG PO ×2 (08:06→17:07)
[2024-06-24] MEDS: CARDIZEM CD 240 MG PO (08:07)
[2024-06-24] MEDS: LOPRESSOR 50 MG PO (08:09)
--- NOTE | 2024-06-24 08:12 | CON.CAR ---
Addendum entered and electronically signed by Jim Santos MD 06/24/24 09:55:
79 yo female with PMH of chronic HFrEF, EF 40-45%, CAD/CABG 2015, TAVR 2023, paroxysmal A fib, CKD3b, SLE, thrombocytopenia, possible ITP with plts under 50, osteomyelitis s/p toe amputation 06/17. We are consulted to assess for HF. Exam with RRR,
III/ systolic murmur at RUSB. Cr 1.7. Hgb 7.5. Plt 23.
She has some edema, but overall looks near euvolemic. Will check echo. To consider RHC this admission based on weight, Cr trend. Continue bumex 4mg PO daily. Has been on this dose for over one week.
Change metoprolol to succinate. Based on EF on repeat echo, will likely stop diltiazem.
Original Note:
Consultation
Consultation Request
Date/Time Consultation Requested: 06/23/2024 15:00
Date/Time Consultation Performed: 06/24/2024 08:00
Requesting Provider: Dr. Cano
Performing Provider: YULISSA Duke for Dr. Santos
Reason for Consultation: Help with diuresis
Medical History
-
Chief Complaint: Shortness of breath
History of Present Illness:
Diana Crandall is a 79-year-old female (known to cardiology at [facility]), with heart failure with mildly reduced ejection fraction, coronary artery disease (CABG x 2015), PSVT, paroxysmal atrial flutter, chronic kidney disease, thrombocytopenia,
SLE, COPD with bronchiectasis, and PE in her 30s who presents as a transfer from [facility] on03/2024 for vascular evaluation. She presented to [facility] and was found to have osteomyelitis of the right second toe. She requested
transfer as she has already established care with Dr. Blunt. She had balloon angioplasty of right dorsalis pedis, right anterior tibial artery, right plantar artery stenosis, and right posterior tibial artery occlusion on 06/14/[address] Blunt.
On 06/17/2024, she had right second toe amputation with Dr. Brand. Her hospitalization has been complicated by acute on chronic thrombocytopenia and chronic anemia. Cardiology was consulted yesterday afternoon for bibasilar crackles on exam with
worsening renal function. Cardiology was asked to assist with diuresis.
Past Medical History
Past Medical History: Arrhythmias (PSVT), CAD (CABG x2), CHF, COPD, HTN, Hypercholesterolemia, Hypothyroidism, Renal Failure (CKD), Valvular Disease (S/P TAVR) and Other (SLE, PAD, Raynaud's, thrombocytopenia, ITP, prior PE)
Past Surgical History: Cardiac, Gynecological and Tonsilectomy
Social History
Tobacco: Former Smoker
Living: [facility]
Family History
Family History: Reviewed & Not Pertinent
Allergies / Home Medications
Allergy/AdvReac Type Severity Reaction Status Date / Time
dextromethorphan Allergy Unknown Verified 06/11/24 13:08
ibuprofen Allergy Unknown Verified 06/11/24 13:08
[From DayQuil Sinus
Pressure/Pain]
oxaprozin [From Daypro] Allergy Rash Verified 06/11/24 13:08
pseudoephedrine Allergy Unknown Verified 06/11/24 13:08
[From DayQuil Sinus
Pressure/Pain]
�Medication �Instructions �Recorded �Confirmed �Type
albuterol sulfate 2.5 mg/3 mL 2.5 mg inhalation Q6H PRN 08/07/23 06/11/24 History
(0.083 %) solution for nebulization sob/wheezing
hydroxychloroquine 200 mg tablet 200 mg PO BID Autoimmune Disorder 08/07/23 06/11/24 History
levothyroxine 125 mcg tablet 62.5 mcg PO DAILY HYPOTHYROID 08/07/23 06/11/24 History
metoprolol tartrate 50 mg tablet 50 mg PO Q12H HTN 08/07/23 06/11/24 History
prednisone 5 mg tablet 5 mg PO DAILY INFLAMMATION 08/07/23 06/11/24 History
torsemide 20 mg tablet 20 mg PO DAILY Heart Failure 08/07/23 06/11/24 History
Betadine 1 unit topical Q48H RIGHT SECOND 05/23/24 06/11/24 History
TOE
budesonide-formoterol HFA 160 2 puff inhalation BID wheeze 05/23/24 06/11/24 History
mcg-4.5 mcg/actuation aerosol
inhaler (Breyna)
cyclosporine 0.05 % eye drops in a 1 drp ophthalmic (eye) HS DRY EYES 05/23/24 06/11/24 History
dropperette (Restasis)
darbepoetin cee in polysorbat 25 25 mcg SC Q21D Lupus 05/23/24 06/11/24 History
mcg/0.42 mL in polysorbate
injection syringe (Aranesp)
diltiazem HCl 240 mg capsule,24 240 mg PO DAILY HTN 05/23/24 06/11/24 History
hr,extended release
docosanol 10 % topical cream 1 applic topical Q8H PRN cold sore 05/23/24 06/11/24 History
(Abreva)
famotidine 20 mg tablet 20 mg PO DAILY GERD 05/23/24 06/11/24 History
levalbuterol HCl 1.25 mg/3 mL 1.25 mg inhalation TID COPD 05/23/24 06/11/24 History
solution for nebulization
multivitamin 1 tab PO DAILY Supplement 05/23/24 06/11/24 History
pantoprazole 40 mg tablet,delayed 40 mg PO DAILY GERD 05/23/24 06/11/24 History
release
torsemide 10 mg tablet 10 mg PO DAILY PRN EDEMA 05/23/24 06/11/24 History
acetaminophen 500 mg tablet 500 mg PO Q6H PRN Mild Pain 06/11/24 06/11/24 History
albuterol sulfate 90 mcg/actuation 1 inh inhalation Q6HPRN PRN 06/11/24 06/11/24 History
aerosol inhaler (Ventolin HFA) SOB/WHEEZE
apixaban 2.5 mg tablet (Eliquis) 2.5 mg PO BID CAD 06/11/24 06/11/24 History
bumetanide 2 mg tablet 4 mg PO DAILY 06/11/24 06/11/24 History
guaifenesin 600 mg tablet, 600 mg PO BID 06/11/24 06/11/24 History
extended release 12 hr
sodium chloride 3 % for 4 ml inhalation BID COPD 06/11/24 06/11/24 History
nebulization
Review of Systems
-
History Source: Patient
All other systems: Negative unless noted
Constitutional: Fatigue
EENT: No Symptoms
Respiratory: No Symptoms
Cardiac: No Symptoms
Abdomen/GI: No Symptoms
: No Symptoms
Musculoskeletal: No Symptoms
Skin: No Symptoms
Neurological: No Symptoms
Endocrine: No Symptoms
Hematologic/Lymphatic: No Symptoms
Physical Exam
Vital Signs
Temp Pulse Resp BP Pulse Ox
98.6 F 66 15 132/59 99
06/23/24 23:45 06/24/24 08:09 06/24/24 07:29 06/24/24 08:09 06/24/24 07:29
Lab Results
06/24/24 06:33
06/24/24 06:33
Physical Exam
General: Well Developed, Well Nourished, No Apparent Distress and Comfortable
HEENT: Normocephalic, Anicteric and Moist Mucous Membranes
Respiratory: Crackles (Posterior bibasilar crackles)
Cardiac: S1/S2, Regular Rhythm and Murmur (II/)
Breast: Deferred by me
GI: Soft, Non Tender, Non Distended and Normal Bowel Sounds
Rectal: Deferred by Provider
Genito-urinary: No Costovertebral Tender
Musculoskeletal: No Clubbing, No Cyanosis and Edema (LE, non pitting)
Skin: Warm, Dry and Other (right foot wrapped)
Neuro: AO x 3
Hematologic/Lymphatic: No Lymphadenopathy
Psych: Calm
Impression / Plan
-
I/P: 79F with HFmrEF (45%), coronary artery disease (CABG x 2, 2015), PSVT, paroxysmal atrial flutter, chronic kidney disease, thrombocytopenia, SLE, COPD with bronchiectasis, and PE in her 30s who presents as a transfer from [facility] 03/2024
for vascular evaluation.
HFmrEF (EF 45%), chronic
- In the outpatient setting she was on torsemide, now on bumetanide 4 mg daily
- Records show a weight of 57kg in March during her prior hospitalization
- Echocardiogram today
- Consider RHC
- Diltiazem is not ideal but continue for now
- GDMT as tolerated:
-ISAI/ARB/ARNI: None due to recent BRYON
-SGLT2 inhibitor: Can consider if nephrology is agreeable
-Aldosterone agonist: None due to recent BRYON
-Beta vladimir: Metoprolol tartrate, this should be transitioned to succinate
-ICD: Not currently indicated
Thrombocytopenia
- Potentially multifactorial with history of SLE
- Status post IVIG
- Oncology following
BRYON on CKD
- BUN/Supervisor Personnel Clerks 15/03. (05/13/2024)
- Angiogram 06/14/2024
- Nephrology also consulted yesterday
CAD s/p CABG x 2 (2015)
- Not on ASA as an outpatient (on apixaban)
- Stable without chest pain
Severe s/p TAVR (2023)
- Stable on echocardiogram at [facility]
Atrial fibrillation type unknown
Paroxysmal atrial flutter, type unknown
- Presenting EKG in atrial fibrillation, update
- Stable without palpitations, continue metoprolol and diltiazem
- Oral anticoagulation on hold, platelets have been less than 50 here
- [id number] score of at least 5 (female, HTN, vascular disease, age 79)
PSVT
- Exended Holter 03/2024 with brief runs
- No telemetry for review, denies palpitations
SLE, on prednisone 5 mg daily
Prior PE, in 30s
COPD, with bronchiectasis
Hypothyroidism on levothyroxine
Data Reviewed
-
EKG: Report Reviewed by me
Labs: Labs Reviewed by me
Old Records: Reviewed
--- NOTE | 2024-06-24 10:56 | CM ---
Reviewed the chart notes and spoke with the patient at the bedside. Patient scheduled for echo today. CM continues to be available to patient/family and is monitoring medical plan for needs at discharge.
Plan: Discharge to patient's daughter's home when medically stable. [facility] will follow.
[facility]
--- NOTE | 2024-06-24 12:19 | W.PN.HOSP.TC ---
Today's Communication/Plan
-
Await Onc recs
Trend platelets
ABD US in am
Assessment / Plan
Assessment / Plan
79-year-old female with extensive past medical history who presented from [facility] as a transfer for right lower extremity arteriogram.
A/P:
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
Platelets dropped from 49 on admission to 23 -FALL PRECAUTIONS placed
baseline platelet count around 60-80 since March 2024, prior to this baseline was 100-130
Onc does not feel this is ITP flare,
Dr. Orozco D/w Rheum Dr Erick Frederick 06/19, he felt thrombocytopenia is not urgent and defer to Onc wrt IVIG or steroid
Dr. Pam Christianson/[place] Onc Dr Noé sarmiento 06/20, who ordered IVIG 1g/kg x1 dose
Trend platelets closely.
Defer to Onc if pt needs additional ongoing IVIG or platelet transfusion
#Chronic combined systolic/diastolic CHF
Echocardiogram showed EF of 40 to 45%, mildly reduced systolic function, global hypokinesis, TAVR bioprosthetic valve, mild to moderate regurgitation mitral valve, mild to moderate regurgitation pulmonic valve,
Cont home Bumex 4 mg PO daily
Additional IV lasix 20 mg PRN1 given for swelling following IVIG (see below)
Possible RHC
#Paroxysmal atrial flutter - appears to be in sinus now
#Essential Hypertension
Cardizem discontinued and now started on Toprol dose adjusted 100 mg twice daily
holding Eliquis with worsening thrombocytopenia
Monitor Hgb
#Acute kidney injury on Chronic kidney disease stage IIIA - BUN/Creat worsening, today 80/2.1
Creatinine peaked 2.7 while on IV diuretics at OSH, trended down to 1.6.
Baseline creatinine of 1.6-1.9
Cont Bumex 4 mg daily.
Cr improved down to 1.7 today
#New necrotic right second toe/ Osteomyelitis of right second toe
Status post lower extremity arteriogram with angioplasty of dorsalis pedis, anterior tibial, plantar artery and posterior tibial.
Postprocedure patient with good blood flow per vascular.
s/p right second toe amputation by Dr. Aidan Corea on Saturday 06/17.
Appreciate ID input, achieved surgical cure, placed on cephalexin 500mg po q8h through 06/24/24 for soft tissue coverage.
Per dealer relationship manager, heel WBAT to RLE, dressing change 1-2 times per week, apply betadine to surgical site, DSD, darya/kerlix wrap to RLE
PT OT cleared for HH
Follow up with Dr Corea at [facility] in 2 weeks following discharge
# Hyperkalemia, resolved
#hypokalemia, replete PRN - not needed today, K 4.3
Follow daily while in hospital
#CAD status post CABG - No history of cardiac stent
per pt not on asa at home
# History of TAVR
#Acquired hypothyroidism
Continue levothyroxine
#COPD
Continue budesonide, formoterol, Mucinex, Xopenex
#History of SLE
Continue Plaquenil, prednisone,
#Chronic anemia - improving
Remote history of aplastic anemia/autoimmune hemolytic anemia treated with steroids/Rituxan
Recently seen by outpatient hematology Dr. Moore on 04/24 who started Aranesp transfusion
Received first dose of Aranesp while inpatient on 06/07
# Community-acquired pneumonia
Repeat chest x-ray on 06/08 showed moderate bilateral scarring persistent opacity at the medial right base which could be atelectasis or pneumonia
Started on cefepime 06/08 due to prior history of Pseudomonas pneumonia- completed course
# Transaminitis likely secondary to hepatic congestion from heart failure
Check US abd tomm
Full code
DVT prophylaxis� holding Eliquis with worsening thrombocytopenia
total time 51 min
Anticipated Discharge: > 48 hours
Subjective/Interval History
-
Date of Service: June 24, 2024
denies R foot pain
worried about her low platelet count
Objective Data
-
Labs:
Laboratory Results
06/24/24
06:33
WBC 5.2
Hgb 7.5 L
Hct 24.1 L
Plt Count 23 L*
Sodium 138
Potassium 3.7
Chloride 106
Carbon Dioxide 25
BUN 79 H
Creatinine 1.7 H
Glucose 102 H
Calcium 8.7
Total Bilirubin 0.5
AST 177 H
ALT 200 H
Alkaline Phosphatase 331 H
Vital Signs:
Vital Signs
Temp Pulse Resp BP Pulse Ox
97.8 F 66 18 132/59 100
06/24/24 08:05 06/24/24 08:09 06/24/24 08:05 06/24/24 08:09 06/24/24 09:39
I&O
06/23/24 06/24/24 06/25/24
06:59 06:59 06:59
Intake Total 380 / 380 1919
Balance 380 / 380 1919
Physical Exam
-
General: Well Developed, Well Nourished, No Apparent Distress and Comfortable
HEENT: Nose Appears Normal and Ears Appear Normal
Respiratory: Decreased Breath Sounds
Cardiac: Regular Rhythm, S1/S2 and Murmur
GI: Soft, Nontender and Nondistended
Musculoskeletal: No Clubbing, No Cyanosis and Other (R foot covered in jabier wrap/surgical shoe noted )
Skin: Warm and Dry
Neuro: Awake, Alert, Oriented, AO x 3 and No Motor Deficits
Psych: Calm
Data Reviewed
-
Total Time Spent with Patient (in minutes): 55
--- NOTE | 2024-06-24 14:39 | W.CON.NEPH ---
Consultation
-
Date/Time Consultation Requested: 06/24/2024 7 AM
Date/Time Consultation Performed: 06/24/2024 2 PM
Requesting Provider: Dr. Tiwari
Performing Provider: Dr. Pablo
Reason for Consultation: BRYON, edema
Medical History
-
Chief Complaint: BRYON
History of Present Illness:
This is a 79-year-old female who has no history of dose on hospital and receives most of her care at [facility]. She reports having heart failure with reduced ejection fraction since February 2022 and has tried multiple diuretics since that time.
She was initially started on furosemide and then switched to torsemide. She not feel that there is a difference with torsemide and was ultimately switched to Bumex which she also feels has not been any better or worse. That she has chronic lower
extremity edema which has never completely vanished. She also has atrial fibrillation Eliquis therapy as well as stenosis status post TAVR. She has known coronary disease with bypass grafting. So has lupus on hydrocortisone and prednisone which
is stable. She was admitted to [facility] on 28 May of breath and exacerbation of heart failure. She was diuresed down to weight of 118. Creatinine at that time had apparently jumped up to 2.7 and diuretics were held. She developed
right second necrotic toe and was transferred to [facility] for angiogram by vascular surgery. This was performed with ultimate amputation of the toe podiatry. Her creatinine during this hospitalization has been stable around 1.6 at
baseline but recently jumped to 2.1 and we are asked assist with management. Upon questioning the patient reports that while she does not see mid wife her outpatient doctors have been following her creatinine and she believes that her average
creatinine has been around 1.7.
Past Medical History
Coronary disease
Heart failure reduced ejection fraction
COPD
Hyperlipidemia
Hypothyroidism
Aortic stenosis status post TAVR
Lupus
Peripheral arterial disease
Raynaud's
Tonsillectomy
ITP
[employer] surgery
Social History
Tobacco: Former Smoker
Alcohol: None
Family History
Family History: Not Pertinent
Allergies / Home Medications
Allergy/AdvReac Type Severity Reaction Status Date / Time
dextromethorphan Allergy Unknown Verified 06/11/24 13:08
ibuprofen Allergy Unknown Verified 06/11/24 13:08
[From DayQuil Sinus
Pressure/Pain]
oxaprozin [From Daypro] Allergy Rash Verified 06/11/24 13:08
pseudoephedrine Allergy Unknown Verified 06/11/24 13:08
[From DayQuil Sinus
Pressure/Pain]
�Medication �Instructions �Recorded �Confirmed �Type
albuterol sulfate 2.5 mg/3 mL 2.5 mg inhalation Q6H PRN 08/07/23 06/11/24 History
(0.083 %) solution for nebulization sob/wheezing
hydroxychloroquine 200 mg tablet 200 mg PO BID Autoimmune Disorder 08/07/23 06/11/24 History
levothyroxine 125 mcg tablet 62.5 mcg PO DAILY HYPOTHYROID 08/07/23 06/11/24 History
metoprolol tartrate 50 mg tablet 50 mg PO Q12H HTN 08/07/23 06/11/24 History
prednisone 5 mg tablet 5 mg PO DAILY INFLAMMATION 08/07/23 06/11/24 History
torsemide 20 mg tablet 20 mg PO DAILY Heart Failure 08/07/23 06/11/24 History
Betadine 1 unit topical Q48H RIGHT SECOND 05/23/24 06/11/24 History
TOE
budesonide-formoterol HFA 160 2 puff inhalation BID wheeze 05/23/24 06/11/24 History
mcg-4.5 mcg/actuation aerosol
inhaler (Breyna)
cyclosporine 0.05 % eye drops in a 1 drp ophthalmic (eye) HS DRY EYES 05/23/24 06/11/24 History
dropperette (Restasis)
darbepoetin cee in polysorbat 25 25 mcg SC Q21D Lupus 05/23/24 06/11/24 History
mcg/0.42 mL in polysorbate
injection syringe (Aranesp)
diltiazem HCl 240 mg capsule,24 240 mg PO DAILY HTN 05/23/24 06/11/24 History
hr,extended release
docosanol 10 % topical cream 1 applic topical Q8H PRN cold sore 05/23/24 06/11/24 History
(Abreva)
famotidine 20 mg tablet 20 mg PO DAILY GERD 05/23/24 06/11/24 History
levalbuterol HCl 1.25 mg/3 mL 1.25 mg inhalation TID COPD 05/23/24 06/11/24 History
solution for nebulization
multivitamin 1 tab PO DAILY Supplement 05/23/24 06/11/24 History
pantoprazole 40 mg tablet,delayed 40 mg PO DAILY GERD 05/23/24 06/11/24 History
release
torsemide 10 mg tablet 10 mg PO DAILY PRN EDEMA 05/23/24 06/11/24 History
acetaminophen 500 mg tablet 500 mg PO Q6H PRN Mild Pain 06/11/24 06/11/24 History
albuterol sulfate 90 mcg/actuation 1 inh inhalation Q6HPRN PRN 06/11/24 06/11/24 History
aerosol inhaler (Ventolin HFA) SOB/WHEEZE
apixaban 2.5 mg tablet (Eliquis) 2.5 mg PO BID CAD 06/11/24 06/11/24 History
bumetanide 2 mg tablet 4 mg PO DAILY 06/11/24 06/11/24 History
guaifenesin 600 mg tablet, 600 mg PO BID 06/11/24 06/11/24 History
extended release 12 hr
sodium chloride 3 % for 4 ml inhalation BID COPD 06/11/24 06/11/24 History
nebulization
Review of Systems
-
No chest pain or shortness of breath. Persistent lower extremity edema
All other systems: Negative unless noted
Physical Exam
Vital Signs
Vital Signs
Temp Pulse Resp BP Pulse Ox
97.8 F 66 18 132/59 100
06/24/24 08:05 06/24/24 08:09 06/24/24 08:05 06/24/24 08:09 06/24/24 09:39
Lab Results
WBC 5.2 10^3/uL (4.8-10.8) 06/24/24 06:33
RBC 2.69 10^6/uL (4.20-5.40) L 06/24/24 06:33
Hgb 7.5 g/dL (12.0-16.0) L 06/24/24 06:33
Hct 24.1 % (37.0-47.0) L 06/24/24 06:33
Plt Count 23 10^3/uL (130-400) L* 06/24/24 06:33
Sodium 138 mmol/L (135-145) 06/24/24 06:33
Potassium 3.7 mmol/L (3.5-5.1) 06/24/24 06:33
Chloride 106 mmol/L (98-107) 06/24/24 06:33
Carbon Dioxide 25 mmol/L (22-30) 06/24/24 06:33
BUN 79 mg/dl (7-17) H 06/24/24 06:33
Creatinine 1.7 mg/dL (0.6-1.0) H 06/24/24 06:33
eGFR 30.70 06/24/24 06:33
Glucose 102 mg/dl (70-99) H 06/24/24 06:33
Calcium 8.7 mg/dl (8.4-10.2) 06/24/24 06:33
Albumin 2.8 g/dl (3.5-5.0) L 06/24/24 06:33
Physical Exam
Patient is awake alert oriented and in no distress. Mood and affect were pleasant, insight and judgment were good. Pupils are equal round and reactive to light, extraocular movements are intact, sclera were anicteric. Hearing was normal, ears and
nose are intact. Oropharynx was clear. Neck was supple with trachea midline and no thyromegaly. Heart was regular rate and rhythm without rubs. Lower extremities with 3+ edema. Lungs were coarse to auscultation bilaterally and with normal
excursion. Abdomen was soft, nontender, with normal active bowel sounds, and no hepatosplenomegaly. Skin was without rash and with normal turgor.
Data Reviewed
-
Radiology: Image Personally Visualized and interpreted (Chest x-ray 06/23/2024 by reading shows cardiomegaly, no acute disease)
Medical Tests (Nuc Med, Echo etc): Image Personally Visualized and interpreted (EKG 06/24/2024 by reading shows normal sinus rhythm left axis deviation LVH repolarization abnormality) and Report Reviewed by me (Echocardiogram 06/24/2024 ejection
fraction 30% mild MR moderate TR)
Labs: Labs Reviewed by me
Old Records: Requested
Assessment/Plan
-
Assessment
BRYON
CKD 3B, baseline 1.7
Heart failure reduced ejection fraction decompensated
Lupus
TAVR
Moderate TR
Edema
peripheral arterial disease
Status post toe amputation
Plan
Check urine studies including proteinuria
Increase Bumex for additional diuresis
I would tolerate a creatinine less than 2
She somewhat remembers being on metolazone previously and this may be used in the future if needed
Follow BMP
For liver ultrasound
--- NOTE | 2024-06-24 16:22 | ITS.CL.CATH ---
Conference Translator - Catheterization
Cardiac Catheterization
Procedure Report:
RIGHT HEART CATHETERIZATION
Date of Procedure: 06/24/2024
Referring: Jim Santos M.D., Ph.D.
INDICATION: Assessment of volume status.
ACCESS:
6 Tongan left basilic vein using a modified Seldinger technique under ultrasound guidance.
CATHETERS:
6 Tongan thermodilution balloon wedge.
PROCEDURE:
The patient was prepped and draped in standard sterile fashion. The area for antecubital access was anesthetized with 1% lidocaine. Under ultrasound guidance, the left basilic vein was identified. The vein was punctured and a radial sheath wire
was advanced without difficulty. A 6 Tongan sheath was inserted into the basilic vein. A 6 Tongan thermodilution balloon wedge catheter was advanced through the sheath into the superior vena cava. An SVC oxygen saturation was drawn. The balloon
wedge catheter was advanced into the pulmonary artery and a pulmonary artery oxygen saturation was drawn. Arterial oxygen saturation was assumed from pulse oximetry. Cardiac output was calculated using the Marion equation and thermodilution. The PA,
wedge, RV and RA pressures were measured on pullback. The balloon wedge catheter was removed. The 6 Tongan sheath was removed and manual pressure lecture was held for hemostasis.
Weight (kg): 56.2
PA (s/d/x mmHg): 60/27/38
PCWP (a/v/x mmHg): 32/48/29
RV (s/x mmHg): 60/20
RA (a/v/x mmHg): 24/24/21
SVC SvO2 (%): 41.6
IVC SvO2 (%): Not obtained.
RA SvO2 (%): Not obtained.
RV SvO2 (%): Not obtained.
PA SvO2 (%): 35.0
SaO2 (%): 99.0 (assumed)
Hbg (g/dL): 7.4
Marion
CO (liters/minute): 2.16
CI (liters/minute/m2): 1.37
Thermodilution
CO (liters/minute): 2.13
CI (liters/minute/m2): 1.35
TPG (mmHg): 9
PVR (Hercules Units): 4.17
AVO2 Difference (Volume %): 6.44
Radiation (mGy): 3.39
DAP (cm2.Gy): 0.3895
Fluoroscopy time (minutes): 0.7
CONCLUSION:
1. Severely elevated filling pressures (PCWP = 29 mmHg at 56.2 kg).
2. Severely depressed cardiac index (1.37 L/min/m� by Marion, 1.35 L/min/m� by thermodilution) with severely elevated PCWP, consistent with cardiogenic shock.
3. 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
RECOMMENDATIONS:
1. Expectant management after right heart catheterization via left antecubital approach.
2. Aggressive diuresis. Consider initiation of bumetanide drip.
3. Consider initiation of inotropic therapy given severely depressed cardiac index (milrinone may be ideal given elevated pulmonary pressures).
4. Low threshold for transfer to ICU/CVICU and placement of indwelling [place] catheter if needed.
Copy to: Jim Santos M.D., Ph.D., Kamla Bartlett M.D.
Aryan Roy D.O., FACC, FACP
--- NOTE | 2024-06-24 17:01 | PTCARENOTE ---
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 Hand cold, pt states this is her normal, + radial pulse, +pulse ox. VSS. 100% RA. Orders reviewed. Bumex & Milrinone gtt's ordered, pending verification by pharmacy. Dr Cadena ordered
pt for IVU.
[2024-06-24] MEDS: PRIMACOR 20 MG 100 IV (20:21)
[2024-06-24] MEDS: BUMEX 50 IV (20:58)
[2024-06-24] MEDS: TOPROL XL 100 MG PO (21:49)
[2024-06-24] MEDS: RESTASIS 0.05% OPHTHALMIC EMULSION 1 DROPS OPHTH (21:50)
[2024-06-24 23:31] LABS: Protein/creatinine Ratio 0.7; Urine Protein 19 mg/dl; Urine Sodium 54 mmol/L (30-90)
[2024-06-25] VITALS (11 sets, daily range): BP systolic 111–143; BP diastolic 56–89; BMI 22.1
[2024-06-25] MEDS: ROXICODONE 5 MG PO ×3 (01:58→21:03)
--- NOTE | 2024-06-25 03:12 | PTCARENOTE ---
pt transferred to 2258 from rm 2120. Pt AAOx3, VSS, NSR on monitor. Pt denies pain or discomfort at that time. pt oriented to room, call crystal in reach
[2024-06-25] MEDS: BUMEX 50 IV ×2 (03:50→15:07)
[2024-06-25 04:36] LABS: Hematocrit 23.1 % (37.0-47.0); Mean Corp Hgb Conc. 30.3 g/dL (33.0-37.0); Mean Corpuscular Hgb 27.3 pg (27.0-31.0); Mean Corpuscular Volume 90.2 fL (81.0-99.0); Platelet Count 22 10^3/uL (130-400); Red Blood Cell Count 2.56 10^6/uL (4.20-5.40); Red Cell Dist. Width 16.3 % (11.5-14.5); White Blood Cell Count 5.1 10^3/uL (4.8-10.8)
[2024-06-25 04:56] LABS: Blood Urea Nitrogen 73 mg/dl (7-17); Calcium 8.5 mg/dl (8.4-10.2); Carbon Dioxide 29 mmol/L (22-30); Chloride 104 mmol/L (98-107); Estimated Creatinine Clearance 26 ml/min; Glucose 118 mg/dl (70-99); Potassium 3.9 mmol/L (3.5-5.1); Sodium 140 mmol/L (135-145); eGFR 35.67
[2024-06-25] MEDS: KEFLEX 500 MG PO ×3 (06:14→21:03)
[2024-06-25] MEDS: SYNTHROID 62.5 MCG PO (06:14)
[2024-06-25] MEDS: SYMBICORT 160/4.5 MCG INHALER 2 PUFF INH ×2 (08:23→20:22)
--- NOTE | 2024-06-25 08:27 | W.PN.CD ---
Today's Communication / Plan
-
PFT's.
Monitor on milrinone/bumex.
D/C diltiazem.
Use digoxin or class III antiarrhythmic drugs.
Transaminitis workup per primary service (DILI from IVIG or hydroxychloroquine?).
GDMT if nephrology is ok with it.
Impression / Plan
-
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
presents as a transfer from [facility] for vascular evaluation.
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
-Acute on chronic.
-In the outpatient setting she was on torsemide, now on bumetanide 4 mg daily.
-Records show a weight of 57kg in March during her prior hospitalization. Weight is stable @ 56.7 kg.
-Echocardiogram shows a fall in LVEF, now 30-35%.
-RHC confirms severe CI impairment (1.2 L/min/m2) with PCWP of 29 mmHg.
-Diltiazem is not ideal. Discontinue today.
-GDMT as tolerated:
-ISAI/ARB/ARNI: None due to recent BRYON.
-SGLT2 inhibitor: Can consider if nephrology is agreeable.
-Aldosterone agonist: None due to recent BRYON.
-Beta vladimir: Transitioned to metoprolol succinate 100 mg daily.
-ICD: Now indicated - not currently on GDMT.
-Continue bumetanide gtt and milrinone.
#Pulmonary hypertension
-New diagnosis.
-Pre and post capillary. PVR = 4.1 Hercules units.
-Milrinone started.
-PFT's ordered for today to assess COPD burden (WHO group 3?).
-Thrombocytopenia and prior apixaban use make CTEPH less likely, though possible.
-SLE could also play a role (though more common with scleroderma).
#Thrombocytopenia
-Potentially multifactorial with history of SLE.
-Status post IVIG.
-Oncology following.
#BRYON on CKD
-Improving. Cr down to 1.5 (baseline 1.2-1.5).
-Nephrology involved - input appreciated.
#CAD
-Chronic, stable.
-s/p CABG x 2 (2015).
-Not on ASA as an outpatient (on apixaban).
-Stable without chest pain.
#Severe
-s/p SAVR (2015) then [place] TAVR (2023).
-Stable on echocardiogram at [facility].
#Atrial fibrillation/atrial flutter
-Type unknown.
-Currently in NSR with RBBB/LAFB.
-Stable without palpitations, continue metoprolol. Discontinue diltiazem. If rate/rhythm control is needed, we can consider digoxin or class III anti-arrhythmics.
-[id number] score of at least 5 (female, HTN, vascular disease, age 79).
-Oral anticoagulation on hold, platelets have been < 50k.
#PSVT
-Extended Holter 03/2024 with brief runs.
-No telemetry for review, denies palpitations.
#SLE, on prednisone 5 mg daily
#Prior PE, in 30s
#COPD, with bronchiectasis
#Hypothyroidism on levothyroxine
Subjective/Interval History:
RHC shows severely elevated filling pressures and severely depressed CI.
There is moderate, combined pre and post capillary pulmonary hypertension.
She was started on milrinone 0.250 mcg/kg/min and bumetanide gtt at 1 mg/hour.
She was transferred from 2N to IVU.
Transaminitis worsening.
DATA:
TTE, 06/24/2024:
CONCLUSIONS
Moderately reduced left ventricular systolic function. Left ventricular
ejection fraction is 30-35%.
Global hypokinesis.
Moderate mitral regurgitation.
s/p TAVR. Peak gradient 37mmHg/Mean gradient 23mmHg. Trace aortic
regurgitation.
Enlarged right ventricular size. Reduced right ventricular systolic function.
Moderate tricuspid regurgitation. Normal PASP.
Compared to report from 05/03/24: LVEF has declined from 40-45% to 30%. MR has
progressed from mild/moderate to moderate. Mean TAVR gradient was previously
20 mmHg.
[facility], 06/24/2024:
CONCLUSION:
1. Severely elevated filling pressures (PCWP = 29 mmHg at 56.2 kg).
2. Severely depressed cardiac index (1.37 L/min/m� by Marion, 1.35 L/min/m� by thermodilution) with severely elevated PCWP, consistent with cardiogenic shock.
3. 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
Physical Exam
Vital Signs/Labs
Vital Signs
Temp Pulse Resp BP Pulse Ox
36.2 C 65 16 121/56 95
06/25/24 07:41 06/25/24 07:41 06/25/24 07:41 06/25/24 07:41 06/25/24 07:41
06/23/24 06/24/24 06/25/24
11:59 11:59 11:59
Actual Weight 56.563 kg 56.501 kg 56.7 kg
06/25/24 04:01
PT 15.6 Sec (11.4-14.6) H 06/21/24 08:53
INR 1.21 06/21/24 08:53
APTT 28.0 Sec (23.4-35.0) 06/21/24 08:53
Magnesium 1.8 mg/dl (1.6-2.3) 06/20/24 06:53
Physical Exam
Constitutional: No acute distress and Comfortable
EENT: Anicteric and Moist mucous membranes
Cardiovascular: Rhythm & rate is regular, Pedal edema is absent, JVD pressure is normal, S1S2 is normal and Murmur/rub/gallop absent
Respiratory: Respiratory effort normal, Lungs clear to auscul., Wheeze Absent, Crackles Absent and Rhonchi Absent
GI: Soft, Distention absent, Flat, Non tender and Normal bowel sounds
Neuro/Psych: AO x 3
Data Reviewed
-
Date of Service: June 25, 2024
Medical Decision Making: Reviewed Test Results, Independent Historian Assessment and Test Interpretation
EKG: Tracing Personally Visualized and interpreted and Report Reviewed by me
Echo: Report Reviewed by me
X-Ray/CT/US/MRI/NUC/PET: Image Personally Visualized and interpreted and Report Reviewed by me
Medical Tests (PFT, Pathology etc): Image Personally Visualized and interpreted, Report Reviewed by me, Discussed with Patient and Discussed with Family
Labs: Labs Reviewed by me
Old Records: Reviewed
[2024-06-25 08:53] LABS: Hematocrit 22.7 % (37.0-47.0); Hemoglobin 6.8 g/dL (12.0-16.0)
[2024-06-25] MEDS: PEPCID 10 MG PO (08:54)
[2024-06-25] MEDS: PROTONIX 40 MG PO (08:59)
[2024-06-25] MEDS: SENOKOT 8.6 MG PO ×2 (08:59→20:37)
[2024-06-25] MEDS: TOPROL XL 100 MG PO ×2 (08:59→20:37)
[2024-06-25] MEDS: DELTASONE 5 MG PO (09:00)
[2024-06-25] MEDS: MUCINEX 600 MG PO ×2 (09:00→20:37)
[2024-06-25] MEDS: THERAGRAN 1 TABLET PO (09:00)
[2024-06-25] MEDS: COLACE 100 MG PO ×2 (09:00→20:37)
[2024-06-25] MEDS: PLAQUENIL 200 MG PO ×2 (09:02→20:37)
[2024-06-25] MEDS: TYLENOL 500 MG PO (12:46)
--- NOTE | 2024-06-25 13:10 | W.PN.HOSP.TC ---
Today's Communication/Plan
-
bumex gtt/milirone gtt
PRBC today
Await heme recs
Assessment / Plan
Assessment / Plan
79-year-old female with extensive past medical history who presented from [facility] as a transfer for right lower extremity arteriogram.
A/P:
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
Platelets dropped from 49 on admission to -FALL PRECAUTIONS placed
baseline platelet count around 60-80 since March 2024, prior to this baseline was 100-130
Onc does not feel this is ITP flare,
Dr. Pam Christianson/w Rheum Dr Erick Frederick 06/19, he felt thrombocytopenia is not urgent and defer to Onc wrt IVIG or steroid
Dr. Pam Christianson/[place] On[facility] Dr Umanzor again 06/20, who ordered IVIG 1g/kg x1 dose
Trend platelets closely.
Defer to Onc if pt needs additional ongoing IVIG or platelet transfusion -awaiting for f/u
#Chronic anemia
Remote history of aplastic anemia/autoimmune hemolytic anemia treated with steroids/Rituxan
Recently seen by outpatient hematology Dr. Moore on 04/24 who started Aranesp transfusion
Received first dose of Aranesp while inpatient on 06/07
Hgb at 6.8. Will transfuse 1U of PRBC today. Repeat H/H later today
#Chronic combined systolic/diastolic CHF
#Cardiogenic Shock
Echocardiogram showed EF of 40 to 45%, mildly reduced systolic function, global hypokinesis, TAVR bioprosthetic valve, mild to moderate regurgitation mitral valve, mild to moderate regurgitation pulmonic valve,
s/p RHC w/severely reduce CI
Off Cardizem
Started on Bumex gtt and Milirone gtt on 06/24.
Monitor Weight and urine output
#Paroxysmal atrial flutter - appears to be in sinus now
#Essential Hypertension
Cardizem discontinued and now started on Toprol dose adjusted 100 mg twice daily
holding Eliquis with worsening thrombocytopenia
Monitor Hgb
#Acute kidney injury on Chronic kidney disease stage IIIA - BUN/Creat worsening, today 80/2.1
Creatinine peaked 2.7 while on IV diuretics at OSH, trended down to 1.6.
Baseline creatinine of 1.6-1.9
Cr improved down to 1.5 today
nephro following
#New necrotic right second toe/ Osteomyelitis of right second toe
Status post lower extremity arteriogram with angioplasty of dorsalis pedis, anterior tibial, plantar artery and posterior tibial.
Postprocedure patient with good blood flow per vascular.
s/p right second toe amputation by Dr. Aidan Corea on Saturday 06/17.
Appreciate ID input, achieved surgical cure, placed on cephalexin 500mg po q8h through 06/24/24 for soft tissue coverage.
Per software packager, heel WBAT to RLE, dressing change 1-2 times per week, apply betadine to surgical site, DSD, darya/kerlix wrap to RLE
PT OT cleared for HH
Follow up with Dr Corea at [facility] in 2 weeks following discharge
# Hyperkalemia, resolved
#hypokalemia, replete PRN - not needed today, K 4.3
Follow daily while in hospital
#CAD status post CABG - No history of cardiac stent
per pt not on asa at home
# History of TAVR
#Acquired hypothyroidism
Continue levothyroxine
#COPD
Continue budesonide, formoterol, Mucinex, Xopenex
#History of SLE
Continue Plaquenil, prednisone,
# Community-acquired pneumonia
Repeat chest x-ray on 06/08 showed moderate bilateral scarring persistent opacity at the medial right base which could be atelectasis or pneumonia
Started on cefepime 06/08 due to prior history of Pseudomonas pneumonia- completed course
# Transaminitis likely secondary to hepatic congestion from heart failure
Check US abd today
Full code
DVT prophylaxis� holding Eliquis with worsening thrombocytopenia
Anticipated Discharge: > 48 hours
Subjective/Interval History
-
Date of Service: June 25, 2024
undergoing abd US
worried about platelets
Objective Data
-
Labs:
Laboratory Results
06/25/24 06/25/24
04:01 08:39
WBC 5.1
Hgb 7.0 L 6.8 L*
Hct 23.1 L 22.7 L
Plt Count 22 L*
Sodium 140
Potassium 3.9
Chloride 104
Carbon Dioxide 29
BUN 73 H
Creatinine 1.5 H
Glucose 118 H
Calcium 8.5
Vital Signs:
Vital Signs
Temp Pulse Resp BP Pulse Ox
97.8 F 68 18 111/77 94
06/25/24 12:29 06/25/24 12:29 06/25/24 12:29 06/25/24 12:29 06/25/24 11:36
I&O
06/24/24 06/25/24 06/26/24
06:59 06:59 06:59
Intake Total 1919 120 / 120 0 / 0
Output Total 825 / 825
Balance 1919 -705 / -705 0 / 0
Physical Exam
-
General: Well Developed, Well Nourished, No Apparent Distress and Comfortable
HEENT: Nose Appears Normal and Ears Appear Normal
Respiratory: Decreased Breath Sounds
Cardiac: Regular Rhythm, S1/S2 and Murmur
GI: Soft, Nontender and Nondistended
Musculoskeletal: No Clubbing, No Cyanosis and Other (R foot covered in jabier wrap/surgical shoe noted )
Skin: Warm and Dry
Neuro: Awake, Alert, Oriented, AO x 3 and No Motor Deficits
Psych: Calm
Data Reviewed
-
Total Time Spent with Patient (in minutes): 55
--- NOTE | 2024-06-25 14:03 | PTCARENOTE ---
Pt c/o lower back pain, rated 6/10 and R foot discomfort, med with Roxicodone 5 mg and Tylenol 500 mg with relief noted.
[2024-06-25] MEDS: PRIMACOR 20 MG 100 IV (14:09)
--- NOTE | 2024-06-25 14:35 | CM ---
Reviewed chart. Miss Crandall was transferred to IVU. Met with Miss Crandall to review discharge plans. She states she is hoping she will be able to go to her daughter's home in [place], [place]. The referral was sent to [facility]. Spoke
with her sister Valentina via phone regarding discharge plans. Telephone call to [employer] Prescription plan to check on covergae for Jardiance, Farxiga and Entresto. She has a $590.00 deductible that has not umang met. She has $532.00 on her
deductible. So her first script for Jardiance would be $405.10 for a month, once she met her deductible her co-pay for Jardiance then would be $72.92 a month. Farxiga first script would be $460.93 a month once she mets her deductible her co-pay
would be $72.60 a month and Entresto 24/26 mg po bid would be $436.68 and after her deductible has been met her co-pay would be $78-60 a month. Medical work-up in progress. The discharge plan is to go to her daughter's home with [facility] when medically stable.
--- NOTE | 2024-06-25 14:54 | PTCARENOTE ---
1 unit PRBC's infusing without incident, Pt myles well
--- NOTE | 2024-06-25 15:55 | PTCARENOTE ---
1540 1 unit PRBC's finished infusing, Pt myles well, VSS.
[2024-06-25 16:07] LABS: % Basophils 0.2 % (0-2); % Immature Granulocytes 0.8 % (0-0.5); % Lymphocytes 5.2 % (20.5-51.1); % Monocytes 6.1 % (1.7-9.3); % Neutrophils 87.7 % (42.2-75.2); Absolute Lymphocytes 0.3 10^3/uL (1.2-3.4); Absolute Monocytes 0.3 10^3/uL (0.1-0.6); Absolute Neutrophils 4.2 10^3/uL (1.4-6.5); Hematocrit 25.8 % (37.0-47.0); Hemoglobin 8.2 g/dL (12.0-16.0); Mean Corp Hgb Conc. 31.8 g/dL (33.0-37.0); Mean Corpuscular Hgb 28.7 pg (27.0-31.0); Mean Corpuscular Volume 90.2 fL (81.0-99.0); Nucleated Red Blood Cells % 0.4 %; Platelet Count 20 10^3/uL (130-400); Red Blood Cell Count 2.86 10^6/uL (4.20-5.40); Red Cell Dist. Width 15.5 % (11.5-14.5); White Blood Cell Count 4.8 10^3/uL (4.8-10.8)
[2024-06-25 16:18] LABS: Blood Urea Nitrogen 69 mg/dl (7-17); Calcium 8.2 mg/dl (8.4-10.2); Carbon Dioxide 29 mmol/L (22-30); Chloride 102 mmol/L (98-107); Estimated Creatinine Clearance 28 ml/min; Glucose 165 mg/dl (70-99); Magnesium 1.7 mg/dl (1.6-2.3); Potassium 3.6 mmol/L (3.5-5.1); Sodium 140 mmol/L (135-145); eGFR 38.75
--- NOTE | 2024-06-25 16:42 | W.PN.ONC ---
Today's Communication / Plan
-
She really did not bump with 2 days of gammaglobulin 1 g/kg. Further gammaglobulin is unlikely to be of benefit. While the platelet count is of concern, she is not bleeding. I am happy to continue to closely monitor her.
Impression
Impression
SLE
thrombocytopenia - multifactorial - possible component of baseline immune mediated thrombocytopenia - exacerbated by ongoing infection/ inflammation
PAD status post amputation 06/17 of left second toe
Hypothyroidism
Hyperlipidemia
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
Plan
Plan
1. Thrombocytopenia - potentially multifactorial w/ h/o SLE - immune thrombocytopenia as well as ongoing infection/ inflammation as well as cephalosporin antibiotics
-received 2nd dose of IVIG 06/21 w/ minimal change in platelet count
-plt stable 24,000
-no apparent bleeding
-monitor CBC
Will continue to follow with you.
Subjective/Objective
Subjective/Objective
She is feeling reasonably well. She reports no new symptoms. She denies anything to suggest bleeding. Examination is unchanged.
Vital Signs:
Vital Signs
Temp Pulse Resp BP Pulse Ox
97.5 F 67 16 140/69 100
06/25/24 15:38 06/25/24 15:38 06/25/24 15:38 06/25/24 15:38 06/25/24 15:02
Lab Results:
Laboratory Data
WBC 4.8 10^3/uL (4.8-10.8) 06/25/24 15:51
Hgb 8.2 g/dL (12.0-16.0) L D 06/25/24 15:51
Plt Count 20 10^3/uL (130-400) L* 06/25/24 15:51
PT 15.6 Sec (11.4-14.6) H 06/21/24 08:53
INR 1.21 06/21/24 08:53
APTT 28.0 Sec (23.4-35.0) 06/21/24 08:53
eGFR 38.75 06/25/24 15:51
[2024-06-25] MEDS: MAGNESIUM OXIDE 500 MG PO (17:06)
[2024-06-25] MEDS: KCL 40 MEQ PO (17:06)
--- NOTE | 2024-06-25 18:04 | W.PN.NEPH.PH ---
Today's Communication / Plan
-
diurese
Assessment/Plan
-
Assessment
BRYON
CKD 3B, baseline 1.7
Heart failure reduced ejection fraction decompensated
Lupus
TAVR
Moderate TR
Edema
peripheral arterial disease
Status post toe amputation
Plan
diurese with bumex gtt
goal weight likely ~113#
Follow BMP
-
-
Date of Service: June 25, 2024
CC / HPI / ROS
-
Chief Complaint:
BRYON
History of Present Illness:
BRYON/Cr down to 1.4
diuresing with bumex gtt and milrinone for decompensated HFrEF
hgb low but up to 8.2
Plts 20
Review of Systems:
no CP/SOB
Labs
-
Labs:
WBC 4.8 10^3/uL (4.8-10.8) 06/25/24 15:51
RBC 2.86 10^6/uL (4.20-5.40) L 06/25/24 15:51
Hgb 8.2 g/dL (12.0-16.0) L D 06/25/24 15:51
Hct 25.8 % (37.0-47.0) L 06/25/24 15:51
Plt Count 20 10^3/uL (130-400) L* 06/25/24 15:51
Sodium 140 mmol/L (135-145) 06/25/24 15:51
Potassium 3.6 mmol/L (3.5-5.1) 06/25/24 15:51
Chloride 102 mmol/L (98-107) 06/25/24 15:51
Carbon Dioxide 29 mmol/L (22-30) 06/25/24 15:51
BUN 69 mg/dl (7-17) H 06/25/24 15:51
Creatinine 1.4 mg/dL (0.6-1.0) H 06/25/24 15:51
eGFR 38.75 06/25/24 15:51
Glucose 165 mg/dl (70-99) H 06/25/24 15:51
Calcium 8.2 mg/dl (8.4-10.2) L 06/25/24 15:51
Albumin 2.8 g/dl (3.5-5.0) L 06/24/24 06:33
Physical Exam
-
Vital Signs:
Vital Signs
Temp Pulse Resp BP Pulse Ox
97.5 F 67 16 140/69 100
06/25/24 15:38 06/25/24 15:38 06/25/24 15:38 06/25/24 15:38 06/25/24 15:02
Cardiovascular:: Regular rate and rhythm
Respiratory:: Bilateral: Coarse
Lung Excursion:: Normal
Abdomen:: Nontender and Soft
Bowel Sounds:: Normal
Extremity Edema:: +3: Bilateral:
[2024-06-25] MEDS: RESTASIS 0.05% OPHTHALMIC EMULSION 1 DROPS OPHTH (21:04)
[2024-06-26] VITALS (8 sets, daily range): BP systolic 123–149; BP diastolic 62–85; O2SAT 99; BMI 22.1
[2024-06-26] MEDS: BUMEX 50 IV ×3 (02:46→22:21)
[2024-06-26 04:21] LABS: % Lymphocytes 11.6 % (20.5-51.1); % Monocytes 9.8 % (1.7-9.3); % Neutrophils 77.6 % (42.2-75.2); Absolute Immature Granulocytes 0.1 10^3/uL (0-0.05); Absolute Lymphocytes 0.6 10^3/uL (1.2-3.4); Absolute Monocytes 0.5 10^3/uL (0.1-0.6); Absolute Neutrophils 3.9 10^3/uL (1.4-6.5); Hematocrit 27.7 % (37.0-47.0); Hemoglobin 8.7 g/dL (12.0-16.0); Mean Corp Hgb Conc. 31.4 g/dL (33.0-37.0); Mean Corpuscular Hgb 28.6 pg (27.0-31.0); Mean Corpuscular Volume 91.1 fL (81.0-99.0); Nucleated Red Blood Cells % 0 %; Platelet Count 30 10^3/uL (130-400); Red Blood Cell Count 3.04 10^6/uL (4.20-5.40); Red Cell Dist. Width 15.7 % (11.5-14.5)
[2024-06-26 04:48] LABS: Blood Urea Nitrogen 65 mg/dl (7-17); Calcium 8.3 mg/dl (8.4-10.2); Carbon Dioxide 29 mmol/L (22-30); Chloride 104 mmol/L (98-107); Estimated Creatinine Clearance 28 ml/min; Glucose 106 mg/dl (70-99); Potassium 4.1 mmol/L (3.5-5.1); Sodium 143 mmol/L (135-145); eGFR 38.75
[2024-06-26] MEDS: KEFLEX 500 MG PO ×3 (05:36→21:18)
[2024-06-26] MEDS: SYNTHROID 62.5 MCG PO (05:36)
[2024-06-26] MEDS: TYLENOL 500 MG PO (05:37)
--- NOTE | 2024-06-26 06:02 | PTCARENOTE ---
Pt NSR on monitor. c/o lower back, PRN meds given with positive result. OOB to commode with x 1 assist
--- NOTE | 2024-06-26 06:47 | W.PN.ONC2 ---
Today's Communication / Plan
-
Currently just monitoring CBC. PLT count spontaneously improved from 20,000 to 30,000. Continue to monitor.
Impression
Impression
SLE
thrombocytopenia - multifactorial - possible component of baseline immune mediated thrombocytopenia - exacerbated by ongoing infection/ inflammation
PAD status post amputation 06/17 of left second toe
Hypothyroidism
Hyperlipidemia
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
Plan
Plan
1. Thrombocytopenia - potentially multifactorial w/ h/o SLE - immune thrombocytopenia as well as ongoing infection/ inflammation as well as cephalosporin antibiotics
-received 2nd dose of IVIG / w/ minimal change in platelet count
-plt improved to 30,000 from 20,000.
-no bleeding
-monitor CBC
Subjective/Objective
Chief Complaint
ACS hematology
Subjective
No new complaints. She received PRBC transfusion yesterday for Hgb = 6.8 with resultant improvement in hemoglobin. She feels about the same.
Vital Signs:
Vital Signs
Temp Pulse Resp BP Pulse Ox
97.7 F 84 17 149/85 96
06/26/24 03:12 06/26/24 03:17 06/26/24 03:12 06/26/24 03:15 06/26/24 03:14
Lab Results:
Laboratory Data
WBC 5.0 10^3/uL (4.8-10.8) 06/26/24 03:29
Hgb 8.7 g/dL (12.0-16.0) L 06/26/24 03:29
Plt Count 30 10^3/uL (130-400) L D 06/26/24 03:29
PT 15.6 Sec (11.4-14.6) H 06/21/24 08:53
INR 1.21 06/21/24 08:53
APTT 28.0 Sec (23.4-35.0) 06/21/24 08:53
eGFR 38.75 06/26/24 03:29
Pretransfusion Hgb = 6.8 yesterday
Physical Exam
HEENT: No Jaundice
Cardiology: S1 and S2
Pulmonary: Clear
Neuro: Non Focal
[2024-06-26] MEDS: SYMBICORT 160/4.5 MCG INHALER 2 PUFF INH ×2 (08:00→19:46)
--- NOTE | 2024-06-26 08:40 | W.PN.CD ---
Today's Communication / Plan
-
Continue bumetanide gtt and milrinone.
metolazone x1 today
trend tele and labs
Impression / Plan
-
Impression/Plan: 79F with HFrEF (EF 30-35%), mixed cardiomyopathy, coronary artery disease (CABG x 2, 2016), SAVR with Cheyenne TAVR (#20 MAKAYLA S3), PSVT, paroxysmal atrial flutter, chronic kidney disease, thrombocytopenia, SLE, COPD with
bronchiectasis, and PE in her 30s who presents as a transfer from [facility] for vascular evaluation.
#HFrEF
-Acute on chronic. Severe, requiring hospitalization and close monitoring of labs/tele
-last PO diuretic was bumex 4 mg daily.
-Records show a weight of 57kg in March during her prior hospitalization. Weight is stable @ 56.7 kg.
-Echocardiogram shows a fall in LVEF, now 30-35%.
-RHC confirms severe CI impairment (1.2 L/min/m2) with PCWP of 29 mmHg. This is a threat to life.
-GDMT as tolerated:
-ISAI/ARB/ARNI: will assess for entresto if Cr stable
-SGLT2 inhibitor: not yet due to recent BRYON
-Aldosterone agonist: None yet due to recent BRYON.
-Beta vladimir: Transitioned to metoprolol succinate 100 mg bid.
-ICD: to re-eval LVEF after 3 months max tolerated GDMT
-Continue bumetanide gtt and milrinone.
-metolazone x1 today
#Pulmonary hypertension
-New diagnosis.
-Pre and post capillary. PVR = 4.1 Hercules units.
-Milrinone started.
-PFT's ordered assess COPD burden (WHO group 3?).
-Thrombocytopenia and prior apixaban use make CTEPH less likely, though possible.
-SLE could also play a role (though more common with scleroderma).
#Thrombocytopenia
-Potentially multifactorial with history of SLE.
-Status post IVIG.
-Oncology following.
#BRYON on CKD
-Improving. (baseline 1.2-1.5).
-Nephrology involved - input appreciated.
#CAD
-Chronic, stable.
-s/p CABG x 2 (2015).
-Not on ASA as an outpatient (on apixaban).
-Stable without chest pain.
#Severe
-s/p SAVR (2015) then Cheyenne TAVR (2023).
-Stable on echocardiogram, with mildly elevated gradients (mean 23 mmHg)
#Atrial fibrillation/atrial flutter
-Type unknown.
-Currently in NSR with RBBB/LAFB.
-Stable without palpitations, continue metoprolol. Discontinued diltiazem. If rate/rhythm control is needed, we can consider digoxin or class III anti-arrhythmics.
-[id number] score of at least 5 (female, HTN, vascular disease, age 79).
-Oral anticoagulation on hold, platelets have been < 50k.
#PSVT
-Extended Holter 03/2024 with brief runs.
-No telemetry for review, denies palpitations.
#SLE
#Prior PE, in 30s
#COPD, with bronchiectasis
#Hypothyroidism on levothyroxine
CCT 35 min
DATA:
TTE, 06/24/2024:
CONCLUSIONS
Moderately reduced left ventricular systolic function. Left ventricular
ejection fraction is 30-35%.
Global hypokinesis.
Moderate mitral regurgitation.
s/p TAVR. Peak gradient 37mmHg/Mean gradient 23mmHg. Trace aortic
regurgitation.
Enlarged right ventricular size. Reduced right ventricular systolic function.
Moderate tricuspid regurgitation. Normal PASP.
Compared to report from 05/03/24: LVEF has declined from 40-45% to 30-35%. MR has
progressed from mild/moderate to moderate. Mean TAVR gradient was previously
20 mmHg.
[facility], 06/24/2024:
CONCLUSION:
1. Severely elevated filling pressures (PCWP = 29 mmHg at 56.2 kg).
2. Severely depressed cardiac index (1.37 L/min/m� by Marion, 1.35 L/min/m� by thermodilution) with severely elevated PCWP, consistent with cardiogenic shock.
3. 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
Physical Exam
Vital Signs/Labs
Vital Signs
Temp Pulse Resp BP Pulse Ox
97.6 F 71 20 123/62 95
06/26/24 07:28 06/26/24 07:28 06/26/24 07:28 06/26/24 07:28 06/26/24 07:28
06/25/24 06/26/24 06/27/24
06:59 06:59 06:59
Actual Weight 56.7 kg 56.5 kg
06/26/24 03:29
06/26/24 03:29
PT 15.6 Sec (11.4-14.6) H 06/21/24 08:53
INR 1.21 06/21/24 08:53
APTT 28.0 Sec (23.4-35.0) 06/21/24 08:53
Magnesium 1.7 mg/dl (1.6-2.3) 06/25/24 15:51
Physical Exam
Constitutional: No acute distress
EENT: Moist mucous membranes
Cardiovascular: Rhythm & rate is regular, Pedal edema present, JVD present and Systolic murmur present
Respiratory: Respiratory effort normal and Lungs clear to auscul.
Neuro/Psych: AO x 3
Data Reviewed
-
Date of Service: June 26, 2024
EKG: Other (Tele: SR 60s)
Labs: Labs Reviewed by me
Critical Care Time (in minutes): 35
[2024-06-26 08:49] LABS: ALT (SGPT) 178 U/L (0-35); AST (SGOT) 120 U/L (14-36); Albumin 3.3 g/dl (3.5-5.0); Alkaline Phosphatase 285 U/L (38-126); Direct Bilirubin 0.3 mg/dl (0.0-0.4); Total Bilirubin 0.6 mg/dl (0.2-1.3); Total Protein 7.1 g/dl (6.3-8.2)
[2024-06-26] MEDS: COLACE 100 MG PO (09:54)
[2024-06-26] MEDS: MUCINEX 600 MG PO ×2 (09:55→21:19)
[2024-06-26] MEDS: PEPCID 10 MG PO (09:55)
[2024-06-26] MEDS: DELTASONE 5 MG PO (09:55)
[2024-06-26] MEDS: THERAGRAN 1 TABLET PO (09:56)
[2024-06-26] MEDS: PROTONIX 40 MG PO (09:56)
[2024-06-26] MEDS: PLAQUENIL 200 MG PO ×2 (09:56→21:19)
[2024-06-26] MEDS: SENOKOT 8.6 MG PO (09:56)
[2024-06-26] MEDS: TOPROL XL 100 MG PO ×2 (09:56→21:19)
[2024-06-26] MEDS: ZAROXOLYN 5 MG PO (09:57)
[2024-06-26] MEDS: FLUSH (NSS) 1 FLUSH IV (09:57)
--- NOTE | 2024-06-26 10:20 | W.PN.NEPH.PH ---
Today's Communication / Plan
-
Bumex drip and milrinone
Metolazone x 1 per cardiology
Assessment/Plan
-
Assessment
BRYON
CKD 3B, baseline 1.7
Heart failure reduced ejection fraction decompensated
Lupus
TAVR
Moderate TR
Edema
peripheral arterial disease
Status post toe amputation
Plan
diurese with bumex gtt
goal weight likely ~113#
Follow BMP
Creatinine stable at baseline
-
-
Date of Service: June 26, 2024
CC / HPI / ROS
-
Chief Complaint:
BRYON
History of Present Illness:
BRYON/Cr down to 1.4
diuresing with bumex gtt and milrinone for decompensated HFrEF
Plts 20>30
Review of Systems:
no CP/SOB
Labs
-
Labs:
WBC 5.0 10^3/uL (4.8-10.8) 06/26/24 03:29
RBC 3.04 10^6/uL (4.20-5.40) L 06/26/24 03:29
Hgb 8.7 g/dL (12.0-16.0) L 06/26/24 03:29
Hct 27.7 % (37.0-47.0) L 06/26/24 03:29
Plt Count 30 10^3/uL (130-400) L D 06/26/24 03:29
Sodium 143 mmol/L (135-145) 06/26/24 03:29
Potassium 4.1 mmol/L (3.5-5.1) 06/26/24 03:29
Chloride 104 mmol/L (98-107) 06/26/24 03:29
Carbon Dioxide 29 mmol/L (22-30) 06/26/24 03:29
BUN 65 mg/dl (7-17) H 06/26/24 03:29
Creatinine 1.4 mg/dL (0.6-1.0) H 06/26/24 03:29
eGFR 38.75 06/26/24 03:29
Glucose 106 mg/dl (70-99) H 06/26/24 03:29
Calcium 8.3 mg/dl (8.4-10.2) L 06/26/24 03:29
Albumin 3.3 g/dl (3.5-5.0) L 06/26/24 03:29
Physical Exam
-
Vital Signs:
Vital Signs
Temp Pulse Resp BP Pulse Ox
97.6 F 71 20 123/62 95
06/26/24 07:28 06/26/24 07:28 06/26/24 07:28 06/26/24 07:28 06/26/24 07:28
Respiratory:: Bilateral: CTA
Lung Excursion:: Normal
Abdomen:: Soft
Bowel Sounds:: Normal
Blunt Catheter: No
--- NOTE | 2024-06-26 11:22 | CM ---
Reviewed chart. Met with Mrs. Crandall to review discharge plans. We reviewed her co-pay ad deductibles for Farxiga, Jardiance and Entresto. She will think about the cost and let me know if she can afford the co-pays. She is still planning on going
to her daughter's home with [facility] when medically stable. Her daughter has a one story home. Prior to admission she was at [facility]. Normally she resides alone in a two story home with two steps to enter. She has a full
flight of steps to get to bedroom/full bathroom. Prior to admission she ambulates with a single point cane. She has a prescription plan with [facility] and uses [facility]. Medical work-up in progress. The discharge plan is to go to
her [facility]'s home [facility] when medically stable.
--- NOTE | 2024-06-26 11:25 | PTCARENOTE ---
Patient sitting oob in the chair this morning, IV bumex infusing at 1mg/hr and IV milrinone infusing at 0.25mcg/kg/min through right midline IV. Patient offers no complaints, reinforced importance of fluid restriction and continued daily weights.
Patient given dose of PO zaroxyln. Call crystal in reach.
[2024-06-26] MEDS: PRIMACOR 20 MG 100 IV (12:36)
--- NOTE | 2024-06-26 12:59 | W.PN.HOSP.TC ---
Today's Communication/Plan
-
Continue with aggressive diuresis
Trend creatinine
Monitor urinary output
Trend CBC
Assessment / Plan
Assessment / Plan
79-year-old female with extensive past medical history who presented from [facility] as a transfer for right lower extremity arteriogram.
A/P:
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
Platelets slowly improved to 30k
baseline platelet count around 60-80 since March 2024, prior to this baseline was 100-130
Onc does not feel this is ITP flare,
Dr. Pam Christianson/w Rheum Dr Erick Frederick 06/19, he felt thrombocytopenia is not urgent and defer to Onc wrt IVIG or steroid
Dr. Pam Christianson/[place] On[facility] Dr Umanzor again 06/20, who ordered IVIG 1g/kg x1 dose
Trend platelets closely.
Defer to Onc if pt needs additional ongoing IVIG or platelet transfusion -awaiting for f/u
#Chronic anemia
Remote history of aplastic anemia/autoimmune hemolytic anemia treated with steroids/Rituxan
Recently seen by outpatient hematology Dr. Moore on 04/24 who started Aranesp transfusion
Received first dose of Aranesp while inpatient on 06/07
Hgb at 8.7 s/p 1U of PRBC
#Chronic combined systolic/diastolic CHF
#Cardiogenic Shock
Echocardiogram showed EF of 40 to 45%, mildly reduced systolic function, global hypokinesis, TAVR bioprosthetic valve, mild to moderate regurgitation mitral valve, mild to moderate regurgitation pulmonic valve,
s/p RHC w/severely reduce CI
Off Cardizem
Started on Bumex gtt and Milirone gtt on 06/24.
Monitor Weight and urine output
#Paroxysmal atrial flutter - appears to be in sinus now
#Essential Hypertension
Cardizem discontinued and now started on Toprol dose adjusted 100 mg twice daily
holding Eliquis with worsening thrombocytopenia
Monitor Hgb
#Acute kidney injury on Chronic kidney disease stage IIIA - BUN/Creat worsening, today 80/2.1
Creatinine peaked 2.7 while on IV diuretics at OSH, trended down to 1.6.
Baseline creatinine of 1.6-1.9
Cr improved down to 1.4 today
nephro following
#New necrotic right second toe/ Osteomyelitis of right second toe
Status post lower extremity arteriogram with angioplasty of dorsalis pedis, anterior tibial, plantar artery and posterior tibial.
Postprocedure patient with good blood flow per vascular.
s/p right second toe amputation by Dr. Aidan Corea on Saturday 06/17.
Appreciate ID input, achieved surgical cure, placed on cephalexin 500mg po q8h through 06/24/24 for soft tissue coverage.
Per deckhand maintenance, heel WBAT to RLE, dressing change 1-2 times per week, apply betadine to surgical site, DSD, darya/kerlix wrap to RLE
PT OT cleared for HH
Follow up with Dr Corea at [facility] in 2 weeks following discharge
# Hyperkalemia, resolved
#hypokalemia, replete PRN - not needed today, K 4.3
Follow daily while in hospital
#CAD status post CABG - No history of cardiac stent
per pt not on asa at home
# History of TAVR
#Acquired hypothyroidism
Continue levothyroxine
#COPD
Continue budesonide, formoterol, Mucinex, Xopenex
#History of SLE
Continue Plaquenil, prednisone,
# Community-acquired pneumonia
Repeat chest x-ray on 06/08 showed moderate bilateral scarring persistent opacity at the medial right base which could be atelectasis or pneumonia
Started on cefepime 06/08 due to prior history of Pseudomonas pneumonia- completed course
# Transaminitis likely secondary to hepatic congestion from heart failure
Abdominal ultrasound with no evidence of gallstone. No sonographic evidence of bile duct calculus.
Full code
DVT prophylaxis� holding Eliquis with worsening thrombocytopenia
Discussed with patient sister at bedside in details
Anticipated Discharge: > 48 hours
Subjective/Interval History
-
Date of Service: June 26, 2024
remains in good spirits
Objective Data
-
Labs:
Laboratory Results
06/26/24
03:29
WBC 5.0
Hgb 8.7 L
Hct 27.7 L
Plt Count 30 L D
Sodium 143
Potassium 4.1
Chloride 104
Carbon Dioxide 29
BUN 65 H
Creatinine 1.4 H
Glucose 106 H
Calcium 8.3 L
Total Bilirubin 0.6
AST 120 H
ALT 178 H
Alkaline Phosphatase 285 H
Vital Signs:
Vital Signs
Temp Pulse Resp BP Pulse Ox
98.2 F 73 16 141/71 99
06/26/24 12:04 06/26/24 12:04 06/26/24 12:04 06/26/24 12:04 06/26/24 12:04
I&O
06/25/24 06/26/24 06/27/24
06:59 06:59 06:59
Intake Total 120 / 120 1473 / 1473
Output Total 825 / 825 1775 / 1775 200 / 200
Balance -705 / -705 -302 / -302 -200 / -200
Data Reviewed
-
Total Time Spent with Patient (in minutes): 55
--- NOTE | 2024-06-26 17:19 | PTCARENOTE ---
Patient receives a aranesp sq injection q3 weeks and states it is due this Monday. Spoke with pharmacy, they do not carry this dosage. TT to Dr. Sparrow who communicated with pharmacy and retacrit has been ordered as a substitute for injection
Monday. Information given to the patient who will contact her infusion center and see if this is able to be given.
[2024-06-26] MEDS: RESTASIS 0.05% OPHTHALMIC EMULSION 1 DROPS OPHTH (21:19)
[2024-06-26] MEDS: SENOKOT PO (21:20)
[2024-06-26] MEDS: COLACE PO (21:20)
--- NOTE | 2024-06-26 23:59 | PTCARENOTE ---
Assumed care of the pt @ 1900. Pt is AAOx3 SR on the monitor Milrinone gtt infusing @ 0.25 mcg and Bumex gtt @ 1mg. Pt is 1 person assist with walker. Call crystal within reach.
[2024-06-27] VITALS (8 sets, daily range): BP systolic 111–147; BP diastolic 51–79; BMI 21.6
[2024-06-27 02:51] LABS: % Basophils 0.2 % (0-2); % Immature Granulocytes 0.8 % (0-0.5); % Lymphocytes 12.9 % (20.5-51.1); % Monocytes 10.8 % (1.7-9.3); % Neutrophils 75.3 % (42.2-75.2); Absolute Lymphocytes 0.5 10^3/uL (1.2-3.4); Absolute Monocytes 0.5 10^3/uL (0.1-0.6); Absolute Neutrophils 3.6 10^3/uL (1.4-6.5); Hematocrit 28.2 % (37.0-47.0); Mean Corpuscular Hgb 27.8 pg (27.0-31.0); Mean Corpuscular Volume 89.7 fL (81.0-99.0); Nucleated Red Blood Cells % 0 %; Platelet Count 29 10^3/uL (130-400); Red Cell Dist. Width 16.2 % (11.5-14.5); White Blood Cell Count 4.8 10^3/uL (4.8-10.8)
[2024-06-27 03:10] LABS: ALT (SGPT) 156 U/L (0-35); AST (SGOT) 104 U/L (14-36); Albumin 3.4 g/dl (3.5-5.0); Alkaline Phosphatase 252 U/L (38-126); Blood Urea Nitrogen 66 mg/dl (7-17); Calcium 8.7 mg/dl (8.4-10.2); Carbon Dioxide 30 mmol/L (22-30); Chloride 99 mmol/L (98-107); Estimated Creatinine Clearance 26 ml/min; Glucose 101 mg/dl (70-99); Potassium 3.2 mmol/L (3.5-5.1); Sodium 140 mmol/L (135-145); Total Bilirubin 0.7 mg/dl (0.2-1.3); Total Protein 7.5 g/dl (6.3-8.2); eGFR 35.67
[2024-06-27] MEDS: SYNTHROID 62.5 MCG PO (06:25)
[2024-06-27] MEDS: KCL 40 MEQ PO (06:25)
[2024-06-27] MEDS: KEFLEX 500 MG PO ×2 (06:25→14:15)
[2024-06-27] MEDS: BUMEX 50 IV (07:47)
[2024-06-27] MEDS: PLAQUENIL 200 MG PO ×2 (09:09→19:43)
[2024-06-27] MEDS: PROTONIX 40 MG PO (09:09)
[2024-06-27] MEDS: MUCINEX 600 MG PO ×2 (09:09→19:43)
[2024-06-27] MEDS: TOPROL XL 100 MG PO ×2 (09:09→19:43)
[2024-06-27] MEDS: SENOKOT 8.6 MG PO (09:09)
[2024-06-27] MEDS: DELTASONE 5 MG PO (09:09)
[2024-06-27] MEDS: COLACE 100 MG PO (09:09)
[2024-06-27] MEDS: THERAGRAN 1 TABLET PO (09:09)
[2024-06-27] MEDS: PEPCID 10 MG PO (09:10)
--- NOTE | 2024-06-27 10:11 | W.PN.CD ---
Today's Communication / Plan
-
stop IV milrinone and bumex
start PO bumex, valsartan, and hydralazine
trend Cr
Impression / Plan
-
Impression/Plan: 79F with HFrEF (EF 30-35%), mixed cardiomyopathy, coronary artery disease (CABG x 2, 2016), SAVR with Cheyenne TAVR (#20 MAKAYLA S3), PSVT, paroxysmal atrial flutter, chronic kidney disease, thrombocytopenia, SLE, COPD with
bronchiectasis, and PE in her 30s who presents as a transfer from [facility] for vascular evaluation.
#HFrEF, acute on chronic, improved s/p IV diuresis
-last PO diuretic was bumex 4 mg daily.
-Records show a weight of 57kg in March during her prior hospitalization. Weight is now 55kg: will call this dry weight.
-Echocardiogram shows a fall in LVEF, now 30-35%. Mixed cardiomyopathy.
-RHC confirms severe CI impairment (1.2 L/min/m2) with PCWP of 29 mmHg. s/p milrinone (stopped 5/8 AM)
-GDMT as tolerated:
-ISAI/ARB/ARNI: start valsartan (patient requests generics)
-SGLT2 inhibitor: patient requests generic only
-Aldosterone agonist: None yet due to recent BRYON.
-Beta vladimir: Transitioned to metoprolol succinate 100 mg bid.
-other: add hydralazine 10mg tid
-ICD: to re-eval LVEF after 3 months max tolerated GDMT
-bumex 4mg PO daily
#Pulmonary hypertension
-New diagnosis.
-Pre and post capillary. PVR = 4.1 Hercules units.
-s/p Milrinone
-PFT's ordered assess COPD burden (WHO group 3?).
-Thrombocytopenia and prior apixaban use make CTEPH less likely, though possible.
-SLE could also play a role (though more common with scleroderma).
#Thrombocytopenia
-Potentially multifactorial with history of SLE.
-Status post IVIG.
-Oncology following.
#BRYON on CKD
-Improving. (baseline 1.2-1.5).
-Nephrology involved - input appreciated.
#CAD
-Chronic, stable.
-s/p CABG x 2 (2015).
-Not on ASA as an outpatient (on apixaban).
-Stable without chest pain.
#Severe
-s/p SAVR (2015) then Cheyenne TAVR (2023).
-Stable on echocardiogram, with mildly elevated gradients (mean 23 mmHg)
#Atrial fibrillation/atrial flutter
-Type unknown.
-Currently in NSR with RBBB/LAFB.
-Stable without palpitations, continue metoprolol. Discontinued diltiazem.
-[id number] score of at least 5 (female, HTN, vascular disease, age 79).
-Oral anticoagulation on hold, platelets have been < 50k.
#PSVT
-Extended Holter 03/2024 with brief runs.
-No telemetry for review, denies palpitations.
#SLE
#Prior PE, in 30s
#COPD, with bronchiectasis
#Hypothyroidism on levothyroxine
DATA:
TTE, 06/24/2024:
CONCLUSIONS
Moderately reduced left ventricular systolic function. Left ventricular
ejection fraction is 30-35%.
Global hypokinesis.
Moderate mitral regurgitation.
s/p TAVR. Peak gradient 37mmHg/Mean gradient 23mmHg. Trace aortic
regurgitation.
Enlarged right ventricular size. Reduced right ventricular systolic function.
Moderate tricuspid regurgitation. Normal PASP.
Compared to report from 05/03/24: LVEF has declined from 40-45% to 30-35%. MR has
progressed from mild/moderate to moderate. Mean TAVR gradient was previously
20 mmHg.
[facility], 06/24/2024:
CONCLUSION:
1. Severely elevated filling pressures (PCWP = 29 mmHg at 56.2 kg).
2. Severely depressed cardiac index (1.37 L/min/m� by Marion, 1.35 L/min/m� by thermodilution) with severely elevated PCWP, consistent with cardiogenic shock.
3. 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
Physical Exam
Vital Signs/Labs
Vital Signs
Temp Pulse Resp BP Pulse Ox
97.6 F 72 20 147/72 99
06/27/24 07:57 06/27/24 08:00 06/27/24 07:57 06/27/24 07:57 06/27/24 07:57
06/26/24 06/27/24 06/28/24
06:59 06:59 06:59
Actual Weight 56.5 kg 55.4 kg
06/27/24 02:19
06/27/24 02:18
PT 15.6 Sec (11.4-14.6) H 06/21/24 08:53
INR 1.21 06/21/24 08:53
APTT 28.0 Sec (23.4-35.0) 06/21/24 08:53
Magnesium 1.7 mg/dl (1.6-2.3) 06/25/24 15:51
Physical Exam
Constitutional: No acute distress
EENT: Moist mucous membranes
Cardiovascular: Rhythm & rate is regular, Pedal edema present, JVD present and Systolic murmur present
Respiratory: Respiratory effort normal and Lungs clear to auscul.
Neuro/Psych: AO x 3
Data Reviewed
-
Date of Service: June 27, 2024
EKG: Other (Tele: SR 70s)
Labs: Labs Reviewed by me
[2024-06-27] MEDS: APRESOLINE 10 MG PO ×3 (10:54→22:13)
--- NOTE | 2024-06-27 11:50 | W.PN.NEPH.PH ---
Today's Communication / Plan
-
Diuretic
Assessment/Plan
-
Assessment
BRYON
CKD 3B, baseline 1.7
Heart failure reduced ejection fraction decompensated
Lupus
TAVR
Moderate TR
Edema
peripheral arterial disease
Status post toe amputation
Plan
goal weight likely ~113#
Follow BMP
Creatinine stable at baseline
Cardiology managing diuretics. Bumex drip and milrinone discontinued on p.o. Bumex now
-
-
Date of Service: June 27, 2024
CC / HPI / ROS
-
Chief Complaint:
BRYON
History of Present Illness:
BRYON/Cr down to 1.4
diuresing with bumex gtt and milrinone for decompensated HFrEF
Plts 20>30
Review of Systems:
no CP/SOB
Labs
-
Labs:
WBC 4.8 10^3/uL (4.8-10.8) 06/27/24 02:19
RBC 3.20 10^6/uL (4.20-5.40) L 06/27/24 02:19
Hgb 9.0 g/dL (12.0-16.0) L 06/27/24 02:19
Hct 28.2 % (37.0-47.0) L 06/27/24 02:19
Plt Count 29 10^3/uL (130-400) L* 06/27/24 02:19
Sodium 140 mmol/L (135-145) 06/27/24 02:18
Potassium 3.2 mmol/L (3.5-5.1) L 06/27/24 02:18
Chloride 99 mmol/L (98-107) 06/27/24 02:18
Carbon Dioxide 30 mmol/L (22-30) 06/27/24 02:18
BUN 66 mg/dl (7-17) H 06/27/24 02:18
Creatinine 1.5 mg/dL (0.6-1.0) H 06/27/24 02:18
eGFR 35.67 06/27/24 02:18
Glucose 101 mg/dl (70-99) H 06/27/24 02:18
Calcium 8.7 mg/dl (8.4-10.2) 06/27/24 02:18
Albumin 3.4 g/dl (3.5-5.0) L 06/27/24 02:18
Physical Exam
-
Vital Signs:
Vital Signs
Temp Pulse Resp BP Pulse Ox
97.6 F 73 20 144/75 99
06/27/24 07:57 06/27/24 10:54 06/27/24 07:57 06/27/24 10:54 06/27/24 07:57
Respiratory:: Bilateral: CTA
Lung Excursion:: Normal
Abdomen:: Soft
Bowel Sounds:: Normal
Extremity Edema:: +1: Bilateral:
Blunt Catheter: No
[2024-06-27] MEDS: SYMBICORT 160/4.5 MCG INHALER 2 PUFF INH ×2 (12:07→20:00)
--- NOTE | 2024-06-27 12:23 | W.PN.HOSP.TC ---
Today's Communication/Plan
-
Monitor with colorectal medical therapy
Plan to discontinue drips
Trend CBC
Trend creatinine
Assessment / Plan
Assessment / Plan
79-year-old female with extensive past medical history who presented from [facility] as a transfer for right lower extremity arteriogram.
A/P:
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
Platelets slowly improved to 30k
baseline platelet count around 60-80 since March 2024, prior to this baseline was 100-130
Onc does not feel this is ITP flare,
Dr. Pam Christianson/[place] [facility] Dr Erick Frederick 06/19, he felt thrombocytopenia is not urgent and defer to Onc wrt IVIG or steroid
Dr. Pam Christianson/[place] On[facility] Dr Umanzor again 06/20, who ordered IVIG 1g/kg x1 dose
Trend platelets closely.
Defer to Onc if pt needs additional ongoing IVIG or platelet transfusion -awaiting for f/u
#Chronic anemia
Remote history of aplastic anemia/autoimmune hemolytic anemia treated with steroids/Rituxan
Recently seen by outpatient hematology Dr. Moore on 04/24 who started Aranesp transfusion
Received first dose of Aranesp while inpatient on 06/07
Hgb at 9 s/p 1U of PRBC
#Chronic combined systolic/diastolic CHF
#Cardiogenic Shock
Echocardiogram showed EF of 40 to 45%, mildly reduced systolic function, global hypokinesis, TAVR bioprosthetic valve, mild to moderate regurgitation mitral valve, mild to moderate regurgitation pulmonic valve,
s/p RHC w/severely reduce CI
Off Cardizem
Status post Bumex gtt and Milirone gtt on 06/24.
Patient is now started on goal-directed medical therapy with Diovan, hydralazine and Bumex 4 mg p.o. daily.
Monitor Weight and urine output
#Paroxysmal atrial flutter - appears to be in sinus now
#Essential Hypertension
Cardizem discontinued and now started on Toprol dose adjusted 100 mg twice daily
holding Eliquis with worsening thrombocytopenia
Monitor Hgb
#Acute kidney injury on Chronic kidney disease stage IIIA - BUN/Creat worsening, today 80/2.1
Creatinine peaked 2.7 while on IV diuretics at OSH, trended down to 1.6.
Baseline creatinine of 1.6-1.9
Cr improved down to 1.5 today
nephro following
#New necrotic right second toe/ Osteomyelitis of right second toe
Status post lower extremity arteriogram with angioplasty of dorsalis pedis, anterior tibial, plantar artery and posterior tibial.
Postprocedure patient with good blood flow per vascular.
s/p right second toe amputation by Dr. Aidan Corea on Saturday 06/17.
Appreciate ID input, achieved surgical cure, placed on cephalexin 500mg po q8h through 06/24/24 for soft tissue coverage.
Per business intelligence manager, heel WBAT to RLE, dressing change 1-2 times per week, apply betadine to surgical site, DSD, darya/kerlix wrap to RLE
PT OT cleared for HH
Follow up with Dr Corea at [facility] in 2 weeks following discharge
# Hyperkalemia, resolved
#hypokalemia, replete PRN - not needed today, K 4.3
Follow daily while in hospital
#CAD status post CABG - No history of cardiac stent
per pt not on asa at home
# History of TAVR
#Acquired hypothyroidism
Continue levothyroxine
#COPD
Continue budesonide, formoterol, Mucinex, Xopenex
#History of SLE
Continue Plaquenil, prednisone,
# Community-acquired pneumonia
Repeat chest x-ray on 06/08 showed moderate bilateral scarring persistent opacity at the medial right base which could be atelectasis or pneumonia
Started on cefepime 06/08 due to prior history of Pseudomonas pneumonia- completed course
# Transaminitis likely secondary to hepatic congestion from heart failure
Abdominal ultrasound with no evidence of gallstone. No sonographic evidence of bile duct calculus.
Full code
DVT prophylaxis� holding Eliquis with worsening thrombocytopenia
Discussed with patient sister at bedside in details on 06/26
Anticipated Discharge: > 48 hours
Subjective/Interval History
-
Date of Service: June 27, 2024
states passing increasing amount of urine
Objective Data
-
Labs:
Laboratory Results
06/27/24 06/27/24
02:18 02:19
WBC 4.8
Hgb 9.0 L
Hct 28.2 L
Plt Count 29 L*
Sodium 140
Potassium 3.2 L
Chloride 99
Carbon Dioxide 30
BUN 66 H
Creatinine 1.5 H
Glucose 101 H
Calcium 8.7
Total Bilirubin 0.7
AST 104 H
ALT 156 H
Alkaline Phosphatase 252 H
Vital Signs:
Vital Signs
Temp Pulse Resp BP Pulse Ox
97.6 F 78 14 144/75 98
06/27/24 07:57 06/27/24 11:45 06/27/24 11:45 06/27/24 10:54 06/27/24 11:45
I&O
06/26/24 06/27/24 06/28/24
06:59 06:59 06:59
Intake Total 1473 / 1473 736.4 / 736.4 400 / 400
Output Total 1775 / 1775 1000 / 1000 1150 / 1150
Balance -302 / -302 -263.6 / -263.6 -750 / -750
[2024-06-27] MEDS: BUMEX 4 MG PO (12:40)
[2024-06-27] MEDS: DIOVAN 40 MG PO ×2 (12:41→19:44)
--- NOTE | 2024-06-27 12:42 | W.PN.ONC ---
Today's Communication / Plan
-
No active bleeding
Platelet count stable continue to monitor
Impression
Impression
SLE
thrombocytopenia - multifactorial - possible component of baseline immune mediated thrombocytopenia - exacerbated by ongoing infection/ inflammation
PAD status post amputation 06/17 of left second toe
Hypothyroidism
Hyperlipidemia
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
Subjective/Objective
Subjective/Objective
Without new complaints
Vital Signs:
Vital Signs
Temp Pulse Resp BP Pulse Ox
98.4 F 75 20 144/75 98
06/27/24 12:39 06/27/24 12:00 06/27/24 12:39 06/27/24 10:54 06/27/24 12:39
physical exam unchanged
Lab Results:
Laboratory Data
WBC 4.8 10^3/uL (4.8-10.8) 06/27/24 02:19
Hgb 9.0 g/dL (12.0-16.0) L 06/27/24 02:19
Plt Count 29 10^3/uL (130-400) L* 06/27/24 02:19
PT 15.6 Sec (11.4-14.6) H 06/21/24 08:53
INR 1.21 06/21/24 08:53
APTT 28.0 Sec (23.4-35.0) 06/21/24 08:53
eGFR 35.67 06/27/24 02:18
--- NOTE | 2024-06-27 13:35 | CM ---
Reviewed chart. Met with Mrs. Crandall to review discharge plans. We reviewed the cost of the medications. She states her [facility] Telephone call to [facility] to check on the
status of referral and what they will need. They will need to send discharge instructions and discharge summary to [facility] at fax, ([phone]). Medical work-up in progress. The discharge plan is to go to her daughter's home with [facility] when medically stable.
--- NOTE | 2024-06-27 15:41 | PTCARENOTE ---
IV bumex and milrinone discontinued this morning as ordered. Patient is receiving PO hydralazine and bumex as ordered. Urinating frequently in the bathroom, assisting with the rolling walker and wearing surgical shoe to the right foot. OOB in the
chair, call crystal in reach.
[2024-06-27] MEDS: SENOKOT PO (19:44)
[2024-06-27] MEDS: COLACE PO (19:44)
[2024-06-27] MEDS: TYLENOL 500 MG PO (21:08)
[2024-06-27] MEDS: RESTASIS 0.05% OPHTHALMIC EMULSION 1 DROPS OPHTH (22:13)
--- NOTE | 2024-06-28 00:07 | PTCARENOTE ---
Pt rec'd at change of shift oob in recliner chair with legs elevated. Gait steady with guided assist of nursing and walker. Pt utilizing surgical shoe when ambulating. ARTURO midline flushed and patent. Pt refusing Colace and Senokot at 8pm after
reporting freq small formed bm's. Drsg changed after pt back to bed to right amputated toe. Tylenol given for foot discomfort.
[2024-06-28 01:53] VITALS: BMI 21.4
[2024-06-28 05:47] VITALS: BP 128/63
[2024-06-28] MEDS: SYNTHROID 62.5 MCG PO (05:54)
[2024-06-28 06:19] LABS: % Basophils 0.6 % (0-2); % Immature Granulocytes 1.1 % (0-0.5); % Lymphocytes 19.7 % (20.5-51.1); % Monocytes 10.9 % (1.7-9.3); % Neutrophils 67.7 % (42.2-75.2); Absolute Immature Granulocytes 0.1 10^3/uL (0-0.05); Absolute Lymphocytes 0.9 10^3/uL (1.2-3.4); Absolute Monocytes 0.5 10^3/uL (0.1-0.6); Absolute Neutrophils 3.2 10^3/uL (1.4-6.5); Hematocrit 29.5 % (37.0-47.0); Hemoglobin 9.2 g/dL (12.0-16.0); Mean Corp Hgb Conc. 31.2 g/dL (33.0-37.0); Mean Corpuscular Hgb 27.9 pg (27.0-31.0); Mean Corpuscular Volume 89.4 fL (81.0-99.0); Nucleated Red Blood Cells % 0 %; Platelet Count 30 10^3/uL (130-400); Red Cell Dist. Width 16.3 % (11.5-14.5); White Blood Cell Count 4.7 10^3/uL (4.8-10.8)
[2024-06-28 06:43] LABS: ALT (SGPT) 113 U/L (0-35); AST (SGOT) 76 U/L (14-36); Alkaline Phosphatase 195 U/L (38-126); Blood Urea Nitrogen 71 mg/dl (7-17); Carbon Dioxide 33 mmol/L (22-30); Chloride 96 mmol/L (98-107); Estimated Creatinine Clearance 24 ml/min; Glucose 98 mg/dl (70-99); Potassium 3.8 mmol/L (3.5-5.1); Sodium 138 mmol/L (135-145); Total Bilirubin 0.6 mg/dl (0.2-1.3); Total Protein 6.8 g/dl (6.3-8.2); eGFR 33.01
[2024-06-28] MEDS: SYMBICORT 160/4.5 MCG INHALER 2 PUFF INH (07:43)
[2024-06-28 08:28] VITALS: BP 125/71
[2024-06-28] MEDS: APRESOLINE 10 MG PO ×2 (09:19→16:11)
[2024-06-28] MEDS: BUMEX 4 MG PO (09:19)
[2024-06-28] MEDS: DELTASONE 5 MG PO (09:20)
[2024-06-28] MEDS: MUCINEX 600 MG PO (09:20)
[2024-06-28] MEDS: DIOVAN 40 MG PO (09:20)
[2024-06-28] MEDS: COLACE PO (09:20)
[2024-06-28] MEDS: PEPCID 10 MG PO (09:21)
[2024-06-28] MEDS: THERAGRAN 1 TABLET PO (09:22)
[2024-06-28] MEDS: PLAQUENIL 200 MG PO (09:22)
[2024-06-28] MEDS: TOPROL XL 100 MG PO (09:22)
[2024-06-28] MEDS: PROTONIX 40 MG PO (09:22)
[2024-06-28] MEDS: SENOKOT PO (09:22)
[2024-06-28] MEDS: FLUSH (NSS) 2 FLUSH IV (09:23)
--- NOTE | 2024-06-28 09:32 | PTCARENOTE ---
Assisted the patient oob to the bathroom this morning and she is now sitting oob in the chair. Patient states she had a very good night's rest. Talking with her family on the phone, call bonilla in reach.
--- NOTE | 2024-06-28 09:44 | W.PN.CD ---
Today's Communication / Plan
-
patient requests generic meds
continue metoprolol succinate 100mg bid, hydralazine 10mg tid, valsartan 40mg bid, bumex 4mg daily
eliquis on hold until plt>50
her manager country is in [place]: will send records
-she can get 3 month f/u echo for EF and ICD eval there
discharge planning
please call us back with additional questions
Impression / Plan
-
Impression/Plan: 79F with HFrEF (EF 30-35%), mixed cardiomyopathy, coronary artery disease (CABG x 2, 2016), SAVR with [place] TAVR (#20 MAKAYLA S3), PSVT, paroxysmal atrial flutter, chronic kidney disease, thrombocytopenia, SLE, COPD with
bronchiectasis, and PE in her 30s who presents as a transfer from [facility] for vascular evaluation.
#HFrEF, acute on chronic, improved s/p IV diuresis
-last PO diuretic was bumex 4 mg daily.
-Records show a weight of 57kg in March during her prior hospitalization. Weight is now 55kg: will call this dry weight.
-Echocardiogram shows a fall in LVEF, now 30-35%. Mixed cardiomyopathy.
-RHC confirms severe CI impairment (1.2 L/min/m2) with PCWP of 29 mmHg. s/p milrinone (stopped 5/8 AM)
-GDMT as tolerated:
-ISAI/ARB/ARNI: start valsartan (patient requests generics)
-SGLT2 inhibitor: patient requests generic only
-Aldosterone agonist: None yet due to recent BRYON.
-Beta vladimir: Transitioned to metoprolol succinate 100 mg bid.
-other: continue hydralazine 10mg tid
-ICD: to re-eval LVEF after 3 months max tolerated GDMT
-bumex 4mg PO daily
#Pulmonary hypertension
-New diagnosis.
-Pre and post capillary. PVR = 4.1 Hercules units.
-s/p Milrinone
-PFT's ordered assess COPD burden (WHO group 3?).
-Thrombocytopenia and prior apixaban use make CTEPH less likely, though possible.
-SLE could also play a role (though more common with scleroderma).
#Thrombocytopenia
-Potentially multifactorial with history of SLE.
-Status post IVIG.
-Oncology following.
#BRYON on CKD
-Improving. (baseline 1.2-1.5).
-Nephrology involved - input appreciated.
#CAD
-Chronic, stable.
-s/p CABG x 2 (2015).
-Not on ASA as an outpatient (on apixaban).
-Stable without chest pain.
#Severe
-s/p SAVR (2015) then Cheyenne TAVR (2023).
-Stable on echocardiogram, with mildly elevated gradients (mean 23 mmHg)
#Atrial fibrillation/atrial flutter
-Type unknown.
-Currently in NSR with RBBB/LAFB.
-Stable without palpitations, continue metoprolol. Discontinued diltiazem.
-[id number] score of at least 5 (female, HTN, vascular disease, age 79).
-Oral anticoagulation on hold, platelets have been < 50k.
#PSVT
-Extended Holter 03/2024 with brief runs.
-No telemetry for review, denies palpitations.
#SLE
#Prior PE, in 30s
#COPD, with bronchiectasis
#Hypothyroidism on levothyroxine
DATA:
TTE, 06/24/2024:
CONCLUSIONS
Moderately reduced left ventricular systolic function. Left ventricular
ejection fraction is 30-35%.
Global hypokinesis.
Moderate mitral regurgitation.
s/p TAVR. Peak gradient 37mmHg/Mean gradient 23mmHg. Trace aortic
regurgitation.
Enlarged right ventricular size. Reduced right ventricular systolic function.
Moderate tricuspid regurgitation. Normal PASP.
Compared to report from 05/03/24: LVEF has declined from 40-45% to 30-35%. MR has
progressed from mild/moderate to moderate. Mean TAVR gradient was previously
20 mmHg.
[facility], 06/24/2024:
CONCLUSION:
1. Severely elevated filling pressures (PCWP = 29 mmHg at 56.2 kg).
2. Severely depressed cardiac index (1.37 L/min/m� by Marion, 1.35 L/min/m� by thermodilution) with severely elevated PCWP, consistent with cardiogenic shock.
3. 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
Physical Exam
Vital Signs/Labs
Vital Signs
Temp Pulse Resp BP Pulse Ox
98.2 F 64 18 125/71 96
06/28/24 08:31 06/28/24 08:28 06/28/24 08:31 06/28/24 08:28 06/28/24 08:31
06/27/24 06/28/24 06/29/24
06:59 06:59 06:59
Actual Weight 55.4 kg 54.7 kg
06/28/24 06:05
06/28/24 06:05
PT 15.6 Sec (11.4-14.6) H 06/21/24 08:53
INR 1.21 06/21/24 08:53
APTT 28.0 Sec (23.4-35.0) 06/21/24 08:53
Magnesium 1.7 mg/dl (1.6-2.3) 06/25/24 15:51
Physical Exam
Constitutional: No acute distress and Comfortable
EENT: Moist mucous membranes
Cardiovascular: Rhythm & rate is regular, Pedal edema present, JVD present and Systolic murmur present
Respiratory: Respiratory effort normal and Lungs clear to auscul.
Neuro/Psych: AO x 3
Data Reviewed
-
Date of Service: June 28, 2024
EKG: Other (Tele: SR 60s)
Labs: Labs Reviewed by me
--- NOTE | 2024-06-28 10:43 | PTCARENOTE ---
Patient refusing retacrit injection this morning. Spoke to her infusion center and they will administer her usual injection next week and she prefers not to substitute with the injection we have available.
--- NOTE | 2024-06-28 11:17 | W.PN.NEPH.PH ---
Today's Communication / Plan
-
Continue Bumex
Okay for discharge from renal standpoint
Assessment/Plan
-
Assessment
BRYON
CKD 3B, baseline 1.7
Heart failure reduced ejection fraction decompensated
Lupus
TAVR
Moderate TR
Edema
peripheral arterial disease
Status post toe amputation
Plan
Thrombocytopenia =status post IVIG
Patient states ideal weight is around 120 pound
Follow BMP
Creatinine stable at baseline
Status post Bumex drip and milrinone
On 4 mg Bumex daily
From a renal standpoint I be okay with discharge as she is much more comfortable and her weights are down significantly
Discussed this with family at length
-
-
Date of Service: June 28, 2024
CC / HPI / ROS
-
Chief Complaint:
BRYON
History of Present Illness:
BRYON/Cr
diuresing with bumex gtt and milrinone for decompensated HFrEF
Plts 20>30
Review of Systems:
no CP/SOB
Labs
-
Labs:
WBC 4.7 10^3/uL (4.8-10.8) L 06/28/24 06:05
RBC 3.30 10^6/uL (4.20-5.40) L 06/28/24 06:05
Hgb 9.2 g/dL (12.0-16.0) L 06/28/24 06:05
Hct 29.5 % (37.0-47.0) L 06/28/24 06:05
Plt Count 30 10^3/uL (130-400) L 06/28/24 06:05
Sodium 138 mmol/L (135-145) 06/28/24 06:05
Potassium 3.8 mmol/L (3.5-5.1) 06/28/24 06:05
Chloride 96 mmol/L (98-107) L 06/28/24 06:05
Carbon Dioxide 33 mmol/L (22-30) H 06/28/24 06:05
BUN 71 mg/dl (7-17) H 06/28/24 06:05
Creatinine 1.6 mg/dL (0.6-1.0) H 06/28/24 06:05
eGFR 33.01 06/28/24 06:05
Glucose 98 mg/dl (70-99) 06/28/24 06:05
Calcium 9.0 mg/dl (8.4-10.2) 06/28/24 06:05
Albumin 3.0 g/dl (3.5-5.0) L 06/28/24 06:05
Physical Exam
-
Vital Signs:
Vital Signs
Temp Pulse Resp BP Pulse Ox
98.2 F 64 18 125/71 96
06/28/24 08:31 06/28/24 08:28 06/28/24 08:31 06/28/24 08:28 06/28/24 08:31
Respiratory:: Bilateral: CTA
Lung Excursion:: Normal
Abdomen:: Soft
Bowel Sounds:: Normal
Extremity Edema:: +1: Bilateral:
Blunt Catheter: No
[2024-06-28 12:29] VITALS: BP 112/58
--- NOTE | 2024-06-28 13:25 | W.PN.HOSP.TC ---
Addendum entered and electronically signed by Neal Sparrow MD 06/28/24 15:56:
Thrombocytopenia/anemia only
acute on chronic HFrEF
Cardiogenic shock
Original Note:
Today's Communication/Plan
-
Goal-directed medical therapy hold Eliquis till platelets improved
Outpatient cardiology, nephrology and podiatry follow-up
Assessment / Plan
Assessment / Plan
79-year-old female with extensive past medical history who presented from [facility] as a transfer for right lower extremity arteriogram.
A/P:
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
Platelets at 29k
baseline platelet count around 60-80 since March 2024, prior to this baseline was 100-130
Onc does not feel this is ITP flare,
Dr. Pam Christianson/[place] Rhe[facility] Dr Erick Frederick 06/19, he felt thrombocytopenia is not urgent and defer to Onc wrt IVIG or steroid
Dr. Pam Christianson/[place] On[place] Dr Umanzor again 06/20, who ordered IVIG 1g/kg x1 dose
Trend platelets closely.
Defer to Onc if pt needs additional ongoing IVIG or platelet transfusion -
#Chronic anemia
Remote history of aplastic anemia/autoimmune hemolytic anemia treated with steroids/Rituxan
Recently seen by outpatient hematology Dr. Moore on 04/24 who started Aranesp transfusion
Received first dose of Aranesp while inpatient on 06/07
Hgb at 9.2 s/p 1U of PRBC
Patient was offered alternative to EPO injection which she refused. States she will follow-up with oncology for infusion as outpatient.
#Chronic combined systolic/diastolic CHF
#Cardiogenic Shock
Echocardiogram showed EF of 40 to 45%, mildly reduced systolic function, global hypokinesis, TAVR bioprosthetic valve, mild to moderate regurgitation mitral valve, mild to moderate regurgitation pulmonic valve,
s/p RHC w/severely reduce CI
Off Cardizem
Status post Bumex gtt and Milirone gtt on 06/24.
Patient is now started on goal-directed medical therapy with Diovan, hydralazine and Bumex 4 mg p.o. daily.
Monitor Weight and urine output
#Paroxysmal atrial flutter - appears to be in sinus now
#Essential Hypertension
Cardizem discontinued and now started on Toprol dose adjusted 100 mg twice daily
holding Eliquis with worsening thrombocytopenia and can restart once platelets greater than 50,000 patient verbalized understanding.
Monitor Hgb
#Acute kidney injury on Chronic kidney disease stage IIIA - BUN/Creat worsening, today 80/2.1
Creatinine peaked 2.7 while on IV diuretics at OSH, trended down to 1.6.
Baseline creatinine of 1.6-1.9
Creatinine of 1.6.
nephro following
#New necrotic right second toe/ Osteomyelitis of right second toe
Status post lower extremity arteriogram with angioplasty of dorsalis pedis, anterior tibial, plantar artery and posterior tibial.
Postprocedure patient with good blood flow per vascular.
s/p right second toe amputation by Dr. Aidan Corea on Saturday 06/17.
Appreciate ID input, achieved surgical cure, placed on cephalexin 500mg po q8h through 06/24/24 for soft tissue coverage.
Per machine mover, heel WBAT to RLE, dressing change 1-2 times per week, apply betadine to surgical site, DSD, darya/kerlix wrap to RLE
PT OT cleared for HH
Follow up with Dr Corea at [facility] in 2 weeks following discharge
# Hyperkalemia, resolved
#hypokalemia, replete PRN - not needed today, K 4.3
Follow daily while in hospital
#CAD status post CABG - No history of cardiac stent
per pt not on asa at home
# History of TAVR
#Acquired hypothyroidism
Continue levothyroxine
#COPD
Continue budesonide, formoterol, Mucinex, Xopenex
#History of SLE
Continue Plaquenil, prednisone,
# Community-acquired pneumonia
Repeat chest x-ray on 06/08 showed moderate bilateral scarring persistent opacity at the medial right base which could be atelectasis or pneumonia
Started on cefepime 06/08 due to prior history of Pseudomonas pneumonia- completed course
# Transaminitis likely secondary to hepatic congestion from heart failure
Abdominal ultrasound with no evidence of gallstone. No sonographic evidence of bile duct calculus.
Full code
DVT prophylaxis� holding Eliquis with worsening thrombocytopenia
Discussed with patient sister and multiple other family numbers at bedside.
Discussed with cardiology okay for discharge.
More than 30 minutes spent in discharge including
Final examination of the patient
Summarizing hospital stay
Instructions for continuing care to all relevant caregivers
Preparation of discharge records, prescriptions, and referral forms
Total time spent (in minutes): 65
Anticipated Discharge: Today
Subjective/Interval History
-
Date of Service: June 28, 2024
sitting in chair
comfortable
on room air
Objective Data
-
Labs:
Laboratory Results
06/28/24
06:05
WBC 4.7 L
Hgb 9.2 L
Hct 29.5 L
Plt Count 30 L
Sodium 138
Potassium 3.8
Chloride 96 L
Carbon Dioxide 33 H
BUN 71 H
Creatinine 1.6 H
Glucose 98
Calcium 9.0
Total Bilirubin 0.6
AST 76 H
ALT 113 H
Alkaline Phosphatase 195 H
Vital Signs:
Vital Signs
Temp Pulse Resp BP Pulse Ox
98.2 F 66 18 112/58 98
06/28/24 12:31 06/28/24 12:29 06/28/24 08:31 06/28/24 12:29 06/28/24 12:31
I&O
06/27/24 06/28/24 06/29/24
06:59 06:59 06:59
Intake Total 736.4 / 736.4 1005 / 1005 240 / 240
Output Total 1000 / 1000 2675 / 2675 400 / 400
Balance -263.6 / -263.6 -1670 / -1670 -160 / -160
--- NOTE | 2024-06-28 13:38 | W.DCSUMMARY ---
Discharge Summary
Discharge Data
Date of Admission: 06/11/24
Date of Discharge: 06/28/24
-
Pending Results: No
Hospital Course
79-year-old female with extensive past medical history OF chronic, cytopenia, idiopathic thrombocytopenia, lupus, anemia, chronic systolic diastolic heart failure, atrial flutter, hypertension, CAD status post CABG, TAVR, hypothyroidism, COPD who
presented from [facility] as a transfer for right lower extremity arteriogram. Status post lower extremity arteriogram with angioplasty of dorsalis pedis, anterior tibial, plantar artery and posterior tibial. Postprocedure patient with
good blood flow per vascular. s/p right second toe amputation by Dr. Aidan Corea on Saturday 06/17. Appreciate ID input, achieved surgical cure, placed on cephalexin 500mg po q8h through 06/24/24 for soft tissue coverage. Per code enforcement inspector, heel WBAT to
RLE, dressing change 1-2 times per week, apply betadine to surgical site, DSD, darya/kerlix wrap to RLE. Postop patient was complaining of shortness of breath. Patient was also eval by cardiology, nephrology and pulmonary. Patient was found to be
in heart failure exacerbation. Patient was started on aggressive IV diuresis. Patient with persistent thrombocytopenia hematology was also consulted. Patient received IVIG without much improvement. Eliquis was discontinued. Patient underwent
right heart catheterization which showed severely reduced cardiac index and found to be in cardiogenic shock. Patient was transferred to IVU and was started on milrinone and Bumex infusion. Patient with significantly good urinary output while on
diuretics. Eventually patient was discontinued of the infusions and was transitioned to p.o. 4 mg of Bumex. Valsartan hydralazine was started per cardiology. Patient Eliquis persistently remain less than 50,000 and was recommended to hold Eliquis
until improvement in platelet greater than 50,000 which patient verbalized understanding. Patient also with anemia and received 1 unit of PRBC. Hemoglobin was stable. Patient be discharged home with recommendation to follow-up with her primary
crusher dry ground mica, podiatry and vascular surgery.
Discharge Plan
-
Patient Disposition: Home with Home Care
Discharge Diagnosis/Procedures: New necrotic right second toe / osteomyelitis of right second toe status post lower extremity arteriogram with angioplasty and right 2nd toe amputation
Cardiogenic shock
Acute on chronic thrombocytopenia status post IVIG
Anemia status post blood transfusion
Hypokalemia and hyper kalemia
Transaminitis secondary to hepatic congestion from heart failure
Condition: Fair
Diet: As tolerated
Activity: No strenuous activity
Additional Activity: No strenuous activity or lifting greater than 10 pounds for 2 weeks
Heel weightbearing as tolerated of the right leg.
Driving Restrictions: No driving for 48 hours
Bathing Restrictions: OK to Shower
Others Tests: Your repeat arterial ultrasound is scheduled on 07/17/2024 at 10 AM here at [facility]
Activity Restrictions/Additional Instructions:
Wound Care Instructions
Apply Betadine Daily- May cover with dry dressing
Follow up at wound care center call for an appointment.
Follow-up with the primary crusher dry ground m[facility].
Stand Alone Forms: DC Instr - Vascular OR
Referrals:
[facility] [Outside]
Kamla Irby MD [Family Provider] - in less than 1 week
Aidan Corea MD [Active] - in two weeks
Mariaa Montes CRNP [Specified Professional Personl] - 07/18/24 10:15 am
Additional Discharge Medication Instructions: Restart Eliquis only once platelets are greater than 50,000
Cardizem was discontinued
Torsemide was discontinued
Lopressor was discontinued
Prescriptions:
New
hydralazine 10 mg Tablet
10 mg PO TID Qty: 90 0RF
metoprolol succinate 100 mg Tablet Extended Release 24 Hr
100 mg PO BID Qty: 60 0RF
famotidine 20 mg Tablet
10 mg PO DAILY Qty: 30 0RF
valsartan 40 mg Tablet
40 mg PO BID Qty: 60 0RF
bumetanide 2 mg tablet
4 mg PO DAILY Qty: 60 0RF
Continued
albuterol sulfate 2.5 mg /3 mL (0.083 %) Solution For Nebulization
2.5 mg INHALATION Q6H PRN (Reason: sob/wheezing)
prednisone 5 mg Tablet
5 mg PO DAILY
levothyroxine 125 mcg Tablet
62.5 mcg PO DAILY
Rx Instructions:
0.5TAB
hydroxychloroquine 200 mg Tablet
200 mg PO BID
docosanol [Abreva] 10 % Cream
1 applic TOPICAL Q8H PRN (Reason: cold sore)
Aranesp (in polysorbate) 25 mcg/0.42 mL Syringe
25 mcg SC Q21D
budesonide-formoterol [Breyna] 160-4.5 mcg/actuation Hfa Aerosol Inhaler
2 puff INHALATION BID
Betadine
1 unit topical Q48H
Rx Instructions:
Wound care: NSS wash, paint with betadine, cover with alginate,and 2x2 wrapping gently with darya or tape QOD
multivitamin Tablet
1 tab PO DAILY
pantoprazole 40 mg Tablet,Delayed Release (Dr/Ec)
40 mg PO DAILY
levalbuterol HCl 1.25 mg/3 mL Solution For Nebulization
1.25 mg INHALATION TID
cyclosporine [Restasis] 0.05 % Dropperette
1 drp OPHTHALMIC (EYE) HS
Rx Instructions:
BOTH EYES
sodium chloride 3 % Solution For Nebulization
4 ml INHALATION BID
albuterol sulfate [Ventolin HFA] 90 mcg/actuation Hfa Aerosol Inhaler
1 inh INHALATION Q6HPRN PRN (Reason: SOB/WHEEZE)
acetaminophen 500 mg Tablet
500 mg PO Q6H PRN (Reason: Mild Pain)
guaifenesin 600 mg Tablet Extended Release 12hr
600 mg PO BID
Held
Eliquis 2.5 mg Tablet
2.5 mg PO BID
Hold Instructions: Resume on 07/22/24. HOLD TILL PLATELET >50,000K
Discontinued
torsemide 20 mg Tablet
20 mg PO DAILY
Patient Comments:
last dose about 2 weeks ago per pt
metoprolol tartrate 50 mg Tablet
50 mg PO Q12H
diltiazem HCl 240 mg Capsule,Extended Release 24hr
240 mg PO DAILY
torsemide 10 mg Tablet
10 mg PO DAILY PRN (Reason: EDEMA)
Patient Comments:
Pt does not know when here meds were taken,nurse called [facility] calls to Charge nurse [phone] ext [phone],meds list was to be sent and faxed,Welding Engineer made aware
Rx Instructions:
give 1 tablet PO daily for edema for 5 days in addition to scheduled order
famotidine 20 mg Tablet
20 mg PO DAILY
bumetanide 2 mg Tablet
4 mg PO DAILY
Discharge Orders:
Discharge Patient (As Directed); Ordered 06/28/24
Ordered By: Neal Sparrow
Care Plan Goals
Care Plan Goals:
Problem: Readiness for enhanced knowledge related to diagnosis and treatment plan
Goal: Understand your diagnosis and treatment plan needs, including medications if applicable.
Instructions: Know your diagnosis, underlying causes and treatment plan options, including medications if applicable. Consult with your health care team to learn about your diagnosis and treatment plan, including medications if applicable.
Discharge Date and Time
Print Language: PORTUGUESE
--- NOTE | 2024-06-28 13:55 | CM ---
Reviewed chart. Met with Mrs. Crandall to review discharge plans. She states she is feeling well and maybe able to go home soon. She states she has been ambulating okay. We reviewed [facility] Services with [facility]> She is agreeable to [facility]. She is planning on going to her daughter's home in [place], [place]. It is a one level home. Medical work-up in progress. The discharge plan is to go to her daughter's home with [facility] when medically stable.
[2024-06-28 14:40] VITALS: BP 112/58; PULSE 74; O2SAT 98
--- NOTE | 2024-06-28 14:45 | PN.CDI ---
CDI
- -
CDI:
Physician Documentation Request
Admit Date: 06/11/24 19:44
Dear Doctor Kyara,
Clinical Indicators:
Patient admitted with necrotic right second toe.
06/24 [facility], PCWP: 29
06/28 Cardiology PN, 'HFrEF, acute on chronic, improved s/p IV diuresis...Echocardiogram shows a fall in LVEF, now 30-35%. Mixed cardiomyopathy.'
06/28 PN, 'Chronic combined systolic/diastolic CHF'
Please clarify the most likely type & acuity of CHF you are evaluating, treating or monitoring.
Acute on chronic combined systolic/diastolic CHF
Acute on chronic HFrEF
Chronic combined systolic/diastolic CHF only
Other, please specify
Use of terms such as suspected, likely, concern for, or probable (associated with a specific diagnosis that is being evaluated, monitored, or treated as if it exists) are acceptable and can be coded in the inpatient setting, when documented at the
time of discharge.
Thank you,
ANTIONETTE Robles RN
CDI Specialist
available via tiger text
Please use your independent medical judgment in providing your response.
--- NOTE | 2024-06-28 14:55 | PN.CDI ---
CDI
- -
CDI:
Physician Documentation Request
Admit Date: 06/11/24 19:44
Dear Doctor Kyara,
Clinical Indicators:
Patient admitted with necrotic right second toe; PMH includes ITP/SLE.
06/28 PN, 'Acute on chronic thrombocytopenia..Chronic anemia .'
WBC, RBC, Plts:
06/28/24
06:05
WBC 4.7 L
RBC 3.30 L
Hgb 9.2 L
Plt Count 30 L
Based on the above, could you clarify in the progress notes, the appropriate diagnosis, if significant, that supports the above abnormalities and additional evaluation, monitoring and/or treatment rendered:
Pancytopenia
Thrombocytopenia/anemia only
Other, please specify
Use of terms such as suspected, likely, concern for, or probable (associated with a specific diagnosis that is being evaluated, monitored, or treated as if it exists) are acceptable and can be coded in the inpatient setting, when documented at the
time of discharge.
Thank you,
ANTIONETTE Robles RN
CDI Specialist
available via tiger text
Please use your independent medical judgment in providing your response.
[2024-06-28 16:05] VITALS: BP 120/57
--- NOTE | 2024-06-28 17:10 | PTCARENOTE ---
Patient for discharge home today. Reviewed instructions and all new medications in detail and she states her understanding. Clarified the patient's preferred pharmacy and information was updated. TT to Dr. Sparrow and prescriptions forwarded to
[facility]. Patient discharged home with her son-n-law to her daughter's home with VN services.
== END 2024-06-28 17:30 | disposition home health service (06) | DRG 252 ==
LOC: IVU 19:44
PROVIDERS: Internal Medicine; Internal Medicine Cardiovascular Disease; Nurse Practitioner Acute Care; Nurse Practitioner Family; Nurse Practitioner Gerontology; Student in an Organized Health Care Education/Training Program; Surgery Vascular Surgery; ADMITTING PHYSICIAN Hospitalist; ATTENDING PHYSICIAN Hospitalist; CONSULT PHYSICIAN Internal Medicine Infectious Disease; CONSULT PHYSICIAN Student in an Organized Health Care Education/Training Program; FAMILY PHYSICIAN Internal Medicine; OTHER PHYSICIAN Internal Medicine; OTHER PHYSICIAN Internal Medicine Hematology & Oncology; OTHER PHYSICIAN Specialist; OTHER PHYSICIAN Surgery Vascular Surgery
PROC: 047P3ZZ Dilation of Right Anterior Tibial Artery, Percutaneous Approach (ICD-10-PCS; 2024-06-14)
PROC: 047R3ZZ Dilation of Right Posterior Tibial Artery, Percutaneous Approach (ICD-10-PCS; 2024-06-14)
PROC: 047V3ZZ Dilation of Right Foot Artery, Percutaneous Approach (ICD-10-PCS; 2024-06-14)
PROC: 0Y6R0Z0 Detachment at Right 2nd Toe, Complete, Open Approach (ICD-10-PCS; 2024-06-17)
PROC: 30233S1 Transfusion of Nonautologous Globulin into Peripheral Vein, Percutaneous Approach (ICD-10-PCS; 2024-06-20)
PROC: 4A023N6 Measurement of Cardiac Sampling and Pressure, Right Heart, Percutaneous Approach (ICD-10-PCS; 2024-06-24)
PROC: 30233N1 Transfusion of Nonautologous Red Blood Cells into Peripheral Vein, Percutaneous Approach (ICD-10-PCS; 2024-06-25)
DX: I70.261 Atherosclerosis of native arteries of extremities with gangrene, right leg (principal); I50.23 Acute on chronic systolic (congestive) heart failure; J18.9 Pneumonia, unspecified organism; R57.0 Cardiogenic shock; M86.8X7 Other osteomyelitis, ankle and foot; I13.0 Hypertensive heart and chronic kidney disease with heart failure and stage 1 through stage 4 chronic kidney disease, or unspecified chronic kidney disease; N17.9 Acute kidney failure, unspecified; I48.92 Unspecified atrial flutter; I47.10 Supraventricular tachycardia, unspecified; J47.0 Bronchiectasis with acute lower respiratory infection; D69.3 Immune thrombocytopenic purpura; D80.1 Nonfamilial hypogammaglobulinemia; E87.5 Hyperkalemia; E87.6 Hypokalemia; K76.1 Chronic passive congestion of liver; I25.10 Atherosclerotic heart disease of native coronary artery without angina pectoris; N18.32 Chronic kidney disease, stage 3b; I27.29 Other secondary pulmonary hypertension; E03.9 Hypothyroidism, unspecified; M32.9 Systemic lupus erythematosus, unspecified; D69.59 Other secondary thrombocytopenia; I48.91 Unspecified atrial fibrillation; E78.00 Pure hypercholesterolemia, unspecified; D63.1 Anemia in chronic kidney disease; R09.02 Hypoxemia; I73.01 Raynaud's syndrome with gangrene; I07.1 Rheumatic tricuspid insufficiency; Z95.1 Presence of aortocoronary bypass graft; Z95.2 Presence of prosthetic heart valve; Z87.01 Personal history of pneumonia (recurrent); Z79.01 Long term (current) use of anticoagulants; Z79.52 Long term (current) use of systemic steroids; Z87.891 Personal history of nicotine dependence; Z86.711 Personal history of pulmonary embolism
CPT/HCPCS: 88305; 88311; 94727; 94729; 37228; 37232; 71046; 73630; 75710; 76700; 80048; 80053; 82248; 82570; 82607; 82746; 82962; 83735; 84156; 84300; 85014; 85018; 85025; 85027; 85384; 85610; 85730; 86850; 86900; 86901; 86920; 86922; 87070; 93005; 93306; 93451; 94060; 94640; 97110; 97116; 97162; 97167; 97530; 97535; C1725; C1769; C1894; J1569; J2260; P9016; Q5106; Q9967

== ENCOUNTER → 2024-07-17 09:49 | Outpatient (REF) | payer MEDICARE, OTHER, SELFPAY | LOC: DHVS 09:49 | PROVIDERS: ATTENDING PHYSICIAN Surgery Vascular Surgery; FAMILY PHYSICIAN Internal Medicine | DX: I73.9 Peripheral vascular disease, unspecified (principal) | CPT/HCPCS: 93922; 93925 ==